=== PATIENT | female | born 1940 | race Caucasian/White ===

== ENCOUNTER 2017-11-22 12:03 | Inpatient (IN) | payer MEDICARE, MEDICAID ==
[~2017-11-22] VITALS: Ht 160 cm; Wt 65.0 kg
[~2017-11-22 12:03] MED LIST: CALC-964 PO; CHOL500019 PO; CIP500T PO; CLON-528 PO; DIPH-423 PO; DOCU250C30 PO; FAMO-1 PO; FERR325T28 PO; FURO40TA4 PO; ILOP6TAB2 PO; LAMO100T2 PO; LISI-600 PO; METH5TAB PO; MULT-1085 PO; NOR5T PO; POLY17PO10 PO; POTA20TA19 PO; PROP10TA10 PO; SENN17.26 PO; SERT25TA PO; SIMV10TA2 PO; SODI4VIA NS; STE5T PO; SYN0.1T PO; TRIH2TAB3 PO; VITC500T PO; ZOLP5TAB8 PO; [UNRECOGNIZED DRUG - CODE] PO
[2017-11-22] MEDS ORDERED: normal saline 1000ML IV soln IVB ONE ×2 (12:30→16:25)
[2017-11-22 12:55] LABS: CLARITY,URINE CLOUDY (Clear); COLOR,URINE YELLOW (Yellow); GLUCOSE, URINE NEGATIVE (Neg); KETONES,URINE NEGATIVE (Neg); LEUKOCYTE ESTERASE ,URINE LARGE (Neg); NITRITES, URINE POSITIVE (Neg); OCCULT BLOOD,URINE NEGATIVE (Neg); PROTEIN,URINE NEGATIVE (Neg); UA COLLECTION TYPE STRAIGHT CATH; UROBILINOGEN,URINE 0.2 E.U/dL (0.2-1.0)
[2017-11-22 13:03] LABS: HYALINE CASTS 0-3 /LPF (NEGATIVE); SQUAMOUS EPITHELIAL CELL,UR MODERATE /LPF (FEW); WBC CLUMPS,URINE MANY /HPF (NEGATIVE)
[2017-11-22 13:04] LABS: BACTERIA,URINE 2+ /HPF (Neg); RBC,URINE 0-2 /HPF (0-2); WBC,URINE 30-50 /HPF (0-4)
[2017-11-22 13:09] LABS: BASOPHILS % (AUTO) 0 % (0-1); EOSINOPHILS % (AUTO) 0 % (0-6); HEMOGLOBIN 12.9 g/dl (12.0-16.0); LYMPHOCYTES # (AUTO) 0.2 X10'3 (1.1-4.8); LYMPHOCYTES % (AUTO) 1.1 % (21-51); MEAN CORPUSCULAR HGB CONC 34.8 % (33.0-36.5); MEAN CORPUSCULAR VOLUME 91.8 FL (78-98); MONOCYTES # (AUTO) 0.7 X10'3 (0-0.9); MONOCYTES % (AUTO) 4.3 % (2-12); NEUTROPHILS % (AUTO) 94.6 % (42-75); PLATELET COUNT 256 X10'3 (140-440); RED BLOOD COUNT 4.03 X10'6 (4.20-5.60); RED CELL DISTRIBUTION WIDTH 13.5 % (11.5-14.5); WHITE BLOOD COUNT 15.8 X10'3 (4.5-11.0)
[2017-11-22 13:20] LABS: PARTIAL THROMBOPLASTIN TIME 26 SECONDS (22-32); PROTHROMBIN TIME 10.3 SECONDS (9.0-12.0)
[2017-11-22 13:33] LABS: ALANINE AMINOTRANSFERASE 53 U/L (12-78); ALBUMIN 4.2 G/DL (3.4-5.0); ALBUMIN/GLOBULIN RATIO 1.4 (1.1-1.5); ALKALINE PHOSPHATASE 81 IU/L (46-116); ANION GAP 11 (8-16); ASPARTATE AMINO TRANSFERASE 53 U/L (10-37); BILIRUBIN,TOTAL 0.9 MG/DL (0.1-1.0); BLOOD UREA NITROGEN 24 MG/DL (7-18); BUN/CREATININE RATIO 17.3 (6.6-38.0); CALCIUM 10.3 MG/DL (8.5-10.1); CHLORIDE 106 MMOL/L (99-107); CREATININE 1.39 MG/DL (0.40-0.90); GLUCOSE 174 MG/DL (70-104); POTASSIUM 3.9 MMOL/L (3.5-5.1); SODIUM 146 MMOL/L (135-145); TOTAL CARBON DIOXIDE 28.9 MMOL/L (24-32); TOTAL PROTEIN 7.3 G/DL (6.4-8.2); TROPONIN I < 0.04 NG/ML (0.0-0.05); eGFR 37 ML/MIN
[2017-11-22 13:51] LABS: ETHANOL < 0.010 GM/DL (0.0-0.010)
[2017-11-22 13:58] LABS: URINE AMPHETAMINE SCREEN NEGATIVE (Neg); URINE BARBITUATE SCREEN NEGATIVE (Neg); URINE BENZODIAZEPINES SCREEN NEGATIVE (Neg); URINE CANNABINOID SCREEN NEGATIVE (Neg); URINE COCAINE SCREEN NEGATIVE (Neg); URINE METHADONE SCREEN POSITIVE (Neg); URINE OPIATE SCREEN NEGATIVE (Neg); URINE PHENCYCLIDINE SCREEN NEGATIVE (Neg)
[2017-11-22] MEDS ORDERED: magnesium 2GM in 50ml NS 50 ML IV PRN (16:25)
[2017-11-22] MEDS ORDERED: potassium Cl 40MEQ/NS 500ml 500 ML IV PRN (16:25)
[2017-11-22] MEDS ORDERED: potassium Cl 20 mEq SR tablet PO PRN ×2 (16:25)
[2017-11-22] MEDS ORDERED: magnesium hydroxide 30ml (MOM) UD suspension PO PRN (16:25)
[2017-11-22] MEDS ORDERED: albuterol 2.5 MG/3 ML nebule NEB PRN (16:25)
[2017-11-22] MEDS ORDERED: magnesium Cl slow-release 64mg tablet PO PRN (16:25)
[2017-11-22] MEDS ORDERED: ipratropium/albuterol 3ml nebule NEB PRN (16:25)
[2017-11-22] MEDS ORDERED: magnesium 4gm in 100ml NS 100 ML IV PRN (16:25)
[2017-11-22] MEDS: normal saline 1000ml 1,000 ML IV SCH ×2 (17:17→19:38)
[2017-11-22 17:23] LABS: HEMOGLOBIN A1C 5.2 % (4.5-6.2)
[2017-11-22] MEDS: CefTRIAXone 2gm/NS 100ml IVPB 100 ML IV SCH (17:54)
[2017-11-22 19:00] VITALS: BP 171/69
[2017-11-22 20:00] VITALS: BP 150/73
[2017-11-22] MEDS: clonazePAM 0.5mg tablet PO SCH (20:00)
[2017-11-22] MEDS ORDERED: trihexyphenidyl 2mg tablet PO SCH (20:00)
[2017-11-22] MEDS: propranolol 10mg tablet PO SCH (20:00)
[2017-11-22] MEDS: potassium Cl 20 mEq SR tablet PO SCH (20:32)
[2017-11-22] MEDS: amLODIPine 5mg tablet PO SCH (20:33)
[2017-11-22] MEDS: atorvastatin 10mg tablet PO SCH (20:33)
[2017-11-22] MEDS: heparin, porcine 5000 units/ml vial SQ SCH (21:17)
[2017-11-22] MEDS: acetaminophen 650mg rectal suppository RC PRN ×2 (21:24→23:45)
[2017-11-23] VITALS (17 sets, daily range): BP systolic 144–182; BP diastolic 56–78
[2017-11-23] MEDS: normal saline 1000ml 1,000 ML IV SCH (04:36)
[2017-11-23 05:41] LABS: BASOPHILS % (AUTO) 0 % (0-1); EOSINOPHILS % (AUTO) 0.1 % (0-6); HEMATOCRIT 31.9 % (35.0-45.0); LYMPHOCYTES # (AUTO) 0.7 X10'3 (1.1-4.8); LYMPHOCYTES % (AUTO) 5.6 % (21-51); MEAN CORPUSCULAR HEMOGLOBIN 31.7 PG (27.0-31.0); MEAN CORPUSCULAR HGB CONC 34.4 % (33.0-36.5); MEAN CORPUSCULAR VOLUME 92.2 FL (78-98); MEAN PLATELET VOLUME 7.9 FL (7.4-10.4); MONOCYTES # (AUTO) 0.8 X10'3 (0-0.9); MONOCYTES % (AUTO) 6.7 % (2-12); NEUTROPHILS # (AUTO) 10.5 X10'3 (1.8-7.7); NEUTROPHILS % (AUTO) 87.6 % (42-75); PLATELET COUNT 217 X10'3 (140-440); RED BLOOD COUNT 3.47 X10'6 (4.20-5.60); RED CELL DISTRIBUTION WIDTH 13.8 % (11.5-14.5)
[2017-11-23 06:15] LABS: ALANINE AMINOTRANSFERASE 53 U/L (12-78); ALBUMIN/GLOBULIN RATIO 1.1 (1.1-1.5); ALKALINE PHOSPHATASE 64 IU/L (46-116); ANION GAP 9 (8-16); ASPARTATE AMINO TRANSFERASE 63 U/L (10-37); BILIRUBIN,TOTAL 0.5 MG/DL (0.1-1.0); BLOOD UREA NITROGEN 20 MG/DL (7-18); BUN/CREATININE RATIO 19.8 (6.6-38.0); CALCIUM 8.6 MG/DL (8.5-10.1); CHLORIDE 113 MMOL/L (99-107); CHOL/HDL RATIO 1.7 (0.00-4.99); CHOLESTEROL 100 MG/DL (0-200); CREATININE 1.01 MG/DL (0.40-0.90); GLUCOSE 93 MG/DL (70-104); HDL CHOLESTEROL 58 MG/DL (35-60); LDL CHOLESTEROL 45 MG/DL (50-100); MAGNESIUM 2.1 MG/DL (1.5-2.4); POTASSIUM 3.2 MMOL/L (3.5-5.1); SODIUM 149 MMOL/L (135-145); TOTAL CARBON DIOXIDE 27.1 MMOL/L (24-32); TOTAL PROTEIN 5.7 G/DL (6.4-8.2); TRIGLYCERIDES 45 MG/DL (20-135); eGFR 53 ML/MIN
[2017-11-23] MEDS: sertraline 25mg tablet PO SCH (07:12)
[2017-11-23] MEDS: furosemide 40mg tablet PO SCH (07:13)
[2017-11-23] MEDS: lisinopril 20mg tablet PO SCH (07:13)
[2017-11-23] MEDS: polyethylene glycol 3350 17gm powd pack PO SCH (07:13)
[2017-11-23] MEDS: lamoTRIgine 100mg tablet PO SCH (07:14)
[2017-11-23] MEDS: ferrous sulfate 325mg tablet PO SCH (07:14)
[2017-11-23] MEDS: clonazePAM 0.5mg tablet PO SCH ×2 (07:14→20:00)
[2017-11-23] MEDS: potassium Cl 20 mEq SR tablet PO SCH ×3 (07:14→21:00)
[2017-11-23] MEDS: propranolol 10mg tablet PO SCH ×2 (07:14→20:00)
[2017-11-23] MEDS ORDERED: famotidine 20mg tablet PO SCH (08:00)
[2017-11-23] MEDS ORDERED: levoTHYROXINE 100mcg tablet PO SCH (08:00)
[2017-11-23] MEDS: K and/or MAG REPLACEMENT MC SCH (08:00)
[2017-11-23] MEDS: CefTRIAXone 2gm/NS 100ml IVPB 100 ML IV SCH (08:26)
[2017-11-23] MEDS: heparin, porcine 5000 units/ml vial SQ SCH ×2 (08:28→20:55)
[2017-11-23] MEDS ORDERED: ASPI-1265 PO (10:04)
[2017-11-23] MEDS ORDERED: DEXT15DR7 EACHEYE (10:05)
[2017-11-23] MEDS ORDERED: LORA1TAB PO (10:06)
[2017-11-23] MEDS ORDERED: PYRI200T9 PO (10:08)
[2017-11-23] MEDS ORDERED: BENZ2TAB7 PO (10:09)
[2017-11-23] MEDS ORDERED: DULR RC (10:10)
[2017-11-23] MEDS ORDERED: LURA60TA2 PO (10:13)
[2017-11-23] MEDS ORDERED: MAGN296S50 PO (10:19)
[2017-11-23] MEDS ORDERED: METH5TAB PO (10:20)
[2017-11-23] MEDS ORDERED: MAGN400O6 PO (10:21)
[2017-11-23] MEDS ORDERED: POLY119P2 (10:22)
[2017-11-23] MEDS ORDERED: CARB-87 PO ×3 (10:31→10:35)
[2017-11-23] MEDS ORDERED: CHOL10002 PO (10:35)
[2017-11-23] MEDS ORDERED: ACET-2119 PO (10:37)
[2017-11-23] MEDS: potassium CL 20mEq in D5-1/2NS 1,000 ML IV SCH (11:09)
[2017-11-23] MEDS ORDERED: dexamethasone sod phosphate 10mg/ml inj IV STA (11:11)
[2017-11-23] MEDS: ampicillin/sulbac 3gm/NS 100ml 100 ML IV SCH ×2 (16:01→20:55)
[2017-11-23] MEDS: nystatin 15 GM powder TP SCH (20:55)
[2017-11-23] MEDS: amLODIPine 5mg tablet PO SCH (21:00)
[2017-11-23] MEDS: atorvastatin 10mg tablet PO SCH (21:00)
[2017-11-23] MEDS ORDERED: ziprasidone IM 20mg inj **IM only IM ONE (22:35)
[2017-11-23] MEDS ORDERED: ziprasidone IM 20mg inj **IM only ONE (22:38)
[2017-11-23] MEDS ORDERED: diphenhydrAMINE 50 mg/ml inj ONE (22:40)
[2017-11-23] MEDS ORDERED: diphenhydrAMINE 50 mg/ml inj IV ONE (22:55)
[2017-11-23] MEDS: hydrALAZINE 20mg/ml inj. IV PRN (23:25)
[2017-11-24] VITALS (24 sets, daily range): BP systolic 143–179; BP diastolic 54–83
[2017-11-24] MEDS ORDERED: ziprasidone IM 20mg inj **IM only IM ONE (00:25)
[2017-11-24] MEDS ORDERED: ziprasidone IM 20mg inj **IM only ONE (00:26)
[2017-11-24] MEDS ORDERED: HYDROmorphone inj. 0.5 MG/0.5 ML DISP.SYRIN IM ONE (00:50)
[2017-11-24] MEDS: ampicillin/sulbac 3gm/NS 100ml 100 ML IV SCH ×4 (02:45→20:22)
[2017-11-24] MEDS ORDERED: HYDROmorphone inj. 0.5 MG/0.5 ML DISP.SYRIN IV ONE (03:15)
[2017-11-24] MEDS: potassium CL 20mEq in D5-1/2NS 1,000 ML IV SCH (03:23)
[2017-11-24 05:28] LABS: BASOPHILS % (AUTO) 0.2 % (0-1); EOSINOPHILS # (AUTO) 0.1 X10'3 (0-0.9); EOSINOPHILS % (AUTO) 1.5 % (0-6); HEMATOCRIT 30.3 % (35.0-45.0); HEMOGLOBIN 10.5 g/dl (12.0-16.0); LYMPHOCYTES # (AUTO) 0.7 X10'3 (1.1-4.8); LYMPHOCYTES % (AUTO) 6.9 % (21-51); MEAN CORPUSCULAR HEMOGLOBIN 31.9 PG (27.0-31.0); MEAN CORPUSCULAR HGB CONC 34.7 % (33.0-36.5); MEAN CORPUSCULAR VOLUME 91.9 FL (78-98); MEAN PLATELET VOLUME 8.2 FL (7.4-10.4); MONOCYTES # (AUTO) 0.9 X10'3 (0-0.9); MONOCYTES % (AUTO) 9.6 % (2-12); NEUTROPHILS # (AUTO) 7.7 X10'3 (1.8-7.7); NEUTROPHILS % (AUTO) 81.8 % (42-75); PLATELET COUNT 220 X10'3 (140-440); RED CELL DISTRIBUTION WIDTH 13.3 % (11.5-14.5); WHITE BLOOD COUNT 9.4 X10'3 (4.5-11.0)
[2017-11-24 05:51] LABS: ALANINE AMINOTRANSFERASE 56 U/L (12-78); ALBUMIN 2.8 G/DL (3.4-5.0); ALBUMIN/GLOBULIN RATIO 1.1 (1.1-1.5); ALKALINE PHOSPHATASE 63 IU/L (46-116); ANION GAP 9 (8-16); ASPARTATE AMINO TRANSFERASE 45 U/L (10-37); BILIRUBIN,TOTAL 0.5 MG/DL (0.1-1.0); BLOOD UREA NITROGEN 20 MG/DL (7-18); BUN/CREATININE RATIO 23.3 (6.6-38.0); CHLORIDE 114 MMOL/L (99-107); CREATININE 0.86 MG/DL (0.40-0.90); GLUCOSE 98 MG/DL (70-104); MAGNESIUM 1.9 MG/DL (1.5-2.4); SODIUM 151 MMOL/L (135-145); TOTAL CARBON DIOXIDE 27.8 MMOL/L (24-32); TOTAL PROTEIN 5.4 G/DL (6.4-8.2); eGFR 64 ML/MIN
[2017-11-24 06:12] LABS: POTASSIUM 2.8 MMOL/L (3.5-5.1)
[2017-11-24] MEDS: K and/or MAG REPLACEMENT MC SCH (07:39)
[2017-11-24] MEDS: CefTRIAXone 2gm/NS 100ml IVPB 100 ML IV SCH (07:46)
[2017-11-24] MEDS: potassium Cl 40MEQ/NS 500ml 500 ML IV PRN ×2 (07:46→13:40)
[2017-11-24] MEDS: famotidine/PF 10 mg/ml inj IV SCH (07:47)
[2017-11-24] MEDS: heparin, porcine 5000 units/ml vial SQ SCH ×2 (07:47→20:20)
[2017-11-24] MEDS: nystatin 15 GM powder TP SCH ×3 (07:48→20:21)
[2017-11-24] MEDS: clonazePAM 0.5mg tablet PO SCH ×2 (08:00→20:21)
[2017-11-24] MEDS: polyethylene glycol 3350 17gm powd pack PO SCH (08:00)
[2017-11-24] MEDS: potassium Cl 20 mEq SR tablet PO SCH ×3 (08:00→21:00)
[2017-11-24] MEDS: lisinopril 20mg tablet PO SCH (08:00)
[2017-11-24] MEDS: sertraline 25mg tablet PO SCH (08:00)
[2017-11-24] MEDS: lamoTRIgine 100mg tablet PO SCH (08:00)
[2017-11-24] MEDS: furosemide 40mg tablet PO SCH (08:00)
[2017-11-24] MEDS: ferrous sulfate 325mg tablet PO SCH (08:00)
[2017-11-24] MEDS: propranolol 10mg tablet PO SCH ×2 (08:00→20:00)
[2017-11-24] MEDS ORDERED: levoTHYROXINE sod inj. 100mcg/5 ml vial IV SCH (08:00)
[2017-11-24 08:30] LABS: PHOSPHORUS 2.1 MG/DL (2.3-4.5)
[2017-11-24] MEDS ORDERED: sodium phosphate inj. 30 MMOL in dextrose 5%-water 250 ML IV PRN (08:40)
[2017-11-24] MEDS: sodium phosphate inj. 15 MMOL in dextrose 5%-water 150 ML IV PRN (10:08)
[2017-11-24] MEDS: dextrose 5%-water 1,000 ML IV SCH ×3 (11:00→23:55)
[2017-11-24] MEDS: lactobacillus rhamnosus 10,000 MMU CELLS/CAPSULE PO SCH (17:27)
[2017-11-24] MEDS: atorvastatin 10mg tablet PO SCH (20:20)
[2017-11-24] MEDS: amLODIPine 5mg tablet PO SCH (20:21)
[2017-11-24] MEDS: mag hydrox/Alum hydrox/simeth 30ml oral suspension PO PRN (21:45)
[2017-11-24] MEDS: hydrALAZINE 20mg/ml inj. IV PRN (21:45)
[2017-11-24] MEDS: ondansetron/PF 4mg/2ml inj IV PRN (23:33)
[2017-11-25] VITALS (21 sets, daily range): BP systolic 118–180; BP diastolic 54–99
[2017-11-25 01:41] LABS: ALANINE AMINOTRANSFERASE 51 U/L (12-78); ALBUMIN 2.8 G/DL (3.4-5.0); ALKALINE PHOSPHATASE 63 IU/L (46-116); ANION GAP 8 (8-16); ASPARTATE AMINO TRANSFERASE 37 U/L (10-37); BILIRUBIN,TOTAL 0.4 MG/DL (0.1-1.0); BLOOD UREA NITROGEN 13 MG/DL (7-18); BUN/CREATININE RATIO 15.1 (6.6-38.0); CALCIUM 7.7 MG/DL (8.5-10.1); CHLORIDE 109 MMOL/L (99-107); CREATININE 0.86 MG/DL (0.40-0.90); GLUCOSE 151 MG/DL (70-104); MAGNESIUM 1.9 MG/DL (1.5-2.4); PHOSPHORUS 1.5 MG/DL (2.3-4.5); POTASSIUM 3.2 MMOL/L (3.5-5.1); SODIUM 141 MMOL/L (135-145); TOTAL CARBON DIOXIDE 24.4 MMOL/L (24-32); TOTAL PROTEIN 5.5 G/DL (6.4-8.2); eGFR 64 ML/MIN
[2017-11-25 02:16] LABS: BASOPHILS % (AUTO) 0.4 % (0-1); EOSINOPHILS # (AUTO) 0.1 X10'3 (0-0.9); EOSINOPHILS % (AUTO) 1.2 % (0-6); HEMATOCRIT 31.7 % (35.0-45.0); LYMPHOCYTES # (AUTO) 0.7 X10'3 (1.1-4.8); LYMPHOCYTES % (AUTO) 6.5 % (21-51); MEAN CORPUSCULAR HEMOGLOBIN 31.9 PG (27.0-31.0); MEAN CORPUSCULAR HGB CONC 34.6 % (33.0-36.5); MEAN CORPUSCULAR VOLUME 92.3 FL (78-98); MEAN PLATELET VOLUME 8.5 FL (7.4-10.4); MONOCYTES # (AUTO) 0.9 X10'3 (0-0.9); MONOCYTES % (AUTO) 8.3 % (2-12); NEUTROPHILS # (AUTO) 8.6 X10'3 (1.8-7.7); NEUTROPHILS % (AUTO) 83.6 % (42-75); PLATELET COUNT 226 X10'3 (140-440); RED BLOOD COUNT 3.44 X10'6 (4.20-5.60); RED CELL DISTRIBUTION WIDTH 13.4 % (11.5-14.5); WHITE BLOOD COUNT 10.3 X10'3 (4.5-11.0)
[2017-11-25] MEDS: ampicillin/sulbac 3gm/NS 100ml 100 ML IV SCH ×4 (03:12→22:38)
[2017-11-25] MEDS: dextrose 5%-water 1,000 ML IV SCH ×3 (06:35→17:22)
[2017-11-25] MEDS: levoTHYROXINE 100mcg tablet PO SCH ×2 (07:00→09:29)
[2017-11-25] MEDS: lactobacillus rhamnosus 10,000 MMU CELLS/CAPSULE PO SCH ×3 (07:30→15:39)
[2017-11-25] MEDS: furosemide 40mg tablet PO SCH ×2 (08:00→09:29)
[2017-11-25] MEDS: lisinopril 20mg tablet PO SCH ×2 (08:00→09:28)
[2017-11-25] MEDS: potassium Cl 20 mEq SR tablet PO SCH ×4 (08:00→21:38)
[2017-11-25] MEDS: K and/or MAG REPLACEMENT MC SCH (08:00)
[2017-11-25] MEDS: lamoTRIgine 100mg tablet PO SCH ×2 (08:00→09:29)
[2017-11-25] MEDS: polyethylene glycol 3350 17gm powd pack PO SCH ×2 (08:00→21:00)
[2017-11-25] MEDS: clonazePAM 0.5mg tablet PO SCH ×3 (08:00→21:36)
[2017-11-25] MEDS: propranolol 10mg tablet PO SCH ×4 (08:00→21:38)
[2017-11-25] MEDS: ferrous sulfate 325mg tablet PO SCH ×2 (08:00→09:28)
[2017-11-25] MEDS: sertraline 25mg tablet PO SCH ×2 (08:00→09:29)
[2017-11-25] MEDS: CefTRIAXone 2gm/NS 100ml IVPB 100 ML IV SCH (09:25)
[2017-11-25] MEDS: famotidine/PF 10 mg/ml inj IV SCH (09:30)
[2017-11-25] MEDS: nystatin 15 GM powder TP SCH ×4 (09:31→21:38)
[2017-11-25] MEDS: heparin, porcine 5000 units/ml vial SQ SCH ×3 (09:31→21:38)
[2017-11-25] MEDS: acetaminophen 325mg tablet PO PRN (14:36)
[2017-11-25] MEDS: sodium phosphate inj. 15 MMOL in dextrose 5%-water 150 ML IV PRN (17:10)
[2017-11-25] MEDS: hydrALAZINE 20mg/ml inj. IV PRN ×2 (17:19→23:33)
[2017-11-25] MEDS ORDERED: potassium Cl 40MEQ/NS 500ml 500 ML IV PRN (20:10)
[2017-11-25] MEDS ORDERED: potassium Cl 20 mEq SR tablet PO PRN ×2 (20:10)
[2017-11-25] MEDS: amLODIPine 5mg tablet PO SCH ×2 (21:00→21:37)
[2017-11-25] MEDS: atorvastatin 10mg tablet PO SCH ×2 (21:00→21:38)
[2017-11-26] MEDS: dextrose 5%-water 1,000 ML IV SCH ×3 (00:05→17:03)
[2017-11-26 02:00] VITALS: BP 175/76
[2017-11-26] MEDS: ampicillin/sulbac 3gm/NS 100ml 100 ML IV SCH ×4 (02:59→20:25)
[2017-11-26 05:22] LABS: BASOPHILS % (AUTO) 0.4 % (0-1); EOSINOPHILS # (AUTO) 0.3 X10'3 (0-0.9); HEMATOCRIT 37.7 % (35.0-45.0); LYMPHOCYTES # (AUTO) 0.7 X10'3 (1.1-4.8); LYMPHOCYTES % (AUTO) 7.7 % (21-51); MEAN CORPUSCULAR HEMOGLOBIN 31.8 PG (27.0-31.0); MEAN CORPUSCULAR HGB CONC 34.5 % (33.0-36.5); MEAN CORPUSCULAR VOLUME 92.1 FL (78-98); MEAN PLATELET VOLUME 8.5 FL (7.4-10.4); MONOCYTES # (AUTO) 0.9 X10'3 (0-0.9); MONOCYTES % (AUTO) 9.1 % (2-12); NEUTROPHILS # (AUTO) 7.7 X10'3 (1.8-7.7); NEUTROPHILS % (AUTO) 79.8 % (42-75); PLATELET COUNT 280 X10'3 (140-440); RED BLOOD COUNT 4.09 X10'6 (4.20-5.60); RED CELL DISTRIBUTION WIDTH 13.5 % (11.5-14.5); WHITE BLOOD COUNT 9.6 X10'3 (4.5-11.0)
[2017-11-26] MEDS: hydrALAZINE 20mg/ml inj. IV PRN ×2 (05:42→18:51)
[2017-11-26 05:59] LABS: ANION GAP 8 (8-16); BLOOD UREA NITROGEN 7 MG/DL (7-18); BUN/CREATININE RATIO 9.3 (6.6-38.0); CHLORIDE 102 MMOL/L (99-107); CREATININE 0.75 MG/DL (0.40-0.90); GLUCOSE 133 MG/DL (70-104); SODIUM 137 MMOL/L (135-145)
[2017-11-26 06:00] VITALS: BP 148/50
[2017-11-26 06:00] LABS: ALANINE AMINOTRANSFERASE 63 U/L (12-78); ALKALINE PHOSPHATASE 72 IU/L (46-116); ASPARTATE AMINO TRANSFERASE 35 U/L (10-37); BILIRUBIN,TOTAL 0.6 MG/DL (0.1-1.0); CALCIUM 7.9 MG/DL (8.5-10.1); PHOSPHORUS 1.7 MG/DL (2.3-4.5); TOTAL PROTEIN 5.9 G/DL (6.4-8.2); eGFR 75 ML/MIN
[2017-11-26] MEDS ORDERED: LIDOcaine 1% 30ml vial 5 ML in potassium Cl 40MEQ/NS 500ml 500 ML IV PRN (06:30)
[2017-11-26 06:53] LABS: POTASSIUM 2.8 MMOL/L (3.5-5.1)
[2017-11-26] MEDS: levoTHYROXINE 100mcg tablet PO SCH (07:00)
[2017-11-26] MEDS: lactobacillus rhamnosus 10,000 MMU CELLS/CAPSULE PO SCH ×2 (07:30→17:05)
[2017-11-26] MEDS: K and/or MAG REPLACEMENT MC SCH (08:00)
[2017-11-26] MEDS: propranolol 10mg tablet PO SCH ×2 (08:00→20:00)
[2017-11-26] MEDS: clonazePAM 0.5mg tablet PO SCH ×2 (08:00→20:00)
[2017-11-26] MEDS: sertraline 25mg tablet PO SCH (08:00)
[2017-11-26] MEDS: furosemide 40mg tablet PO SCH (08:00)
[2017-11-26] MEDS: potassium Cl 20 mEq SR tablet PO SCH ×3 (08:00→21:00)
[2017-11-26] MEDS: docusate sod 100mg capsule PO SCH ×2 (08:00→20:00)
[2017-11-26] MEDS: polyethylene glycol 3350 17gm powd pack PO SCH ×2 (08:00→20:21)
[2017-11-26] MEDS: heparin, porcine 5000 units/ml vial SQ SCH ×2 (08:00→20:00)
[2017-11-26] MEDS: lisinopril 20mg tablet PO SCH (08:00)
[2017-11-26] MEDS: nystatin 15 GM powder TP SCH ×3 (08:00→21:00)
[2017-11-26] MEDS: ferrous sulfate 325mg tablet PO SCH (08:00)
[2017-11-26] MEDS: lamoTRIgine 100mg tablet PO SCH (08:00)
[2017-11-26] MEDS: ondansetron/PF 4mg/2ml inj IV PRN ×2 (08:10→20:26)
[2017-11-26] MEDS: CefTRIAXone 2gm/NS 100ml IVPB 100 ML IV SCH (09:22)
[2017-11-26] MEDS: sodium phosphate inj. 15 MMOL in dextrose 5%-water 150 ML IV PRN (09:22)
[2017-11-26] MEDS: famotidine/PF 10 mg/ml inj IV SCH (09:23)
[2017-11-26 11:00] VITALS: BP 133/64
[2017-11-26 15:00] VITALS: BP 140/74
[2017-11-26] MEDS: potassium Cl 40MEQ/NS 500ml 500 ML IV PRN ×2 (15:37→17:02)
[2017-11-26] MEDS ORDERED: LIDOcaine 1% 30ml vial 5 ML in potassium Cl 40MEQ/NS 500ml 500 ML IV ONE (15:45)
[2017-11-26 18:00] VITALS: BP 176/75
[2017-11-26] MEDS: LACTOSE-FREE FOOD 237ML (BOOST) PO SCH (18:00)
[2017-11-26] MEDS: amLODIPine 5mg tablet PO SCH (21:00)
[2017-11-26] MEDS: atorvastatin 10mg tablet PO SCH (21:00)
[2017-11-26 22:00] VITALS: BP 147/54
[2017-11-26] MEDS: LORazepam 2 mg/ml vial IV PRN (22:10)
[2017-11-27] MEDS: dextrose 5%-water 1,000 ML IV SCH ×4 (01:05→18:35)
[2017-11-27 02:00] VITALS: BP 165/64
[2017-11-27] MEDS: ampicillin/sulbac 3gm/NS 100ml 100 ML IV SCH ×4 (02:31→20:29)
[2017-11-27] MEDS: hydrALAZINE 20mg/ml inj. IV PRN ×2 (03:07→09:56)
[2017-11-27 05:47] LABS: BASOPHILS % (AUTO) 0.1 % (0-1); EOSINOPHILS # (AUTO) 0.1 X10'3 (0-0.9); EOSINOPHILS % (AUTO) 1.5 % (0-6); HEMATOCRIT 34.4 % (35.0-45.0); HEMOGLOBIN 12.1 g/dl (12.0-16.0); LYMPHOCYTES # (AUTO) 0.7 X10'3 (1.1-4.8); LYMPHOCYTES % (AUTO) 7.7 % (21-51); MEAN CORPUSCULAR HGB CONC 35.1 % (33.0-36.5); MEAN CORPUSCULAR VOLUME 91.3 FL (78-98); MEAN PLATELET VOLUME 8.1 FL (7.4-10.4); MONOCYTES % (AUTO) 10.1 % (2-12); NEUTROPHILS # (AUTO) 7.7 X10'3 (1.8-7.7); NEUTROPHILS % (AUTO) 80.6 % (42-75); PLATELET COUNT 282 X10'3 (140-440); RED BLOOD COUNT 3.77 X10'6 (4.20-5.60); RED CELL DISTRIBUTION WIDTH 13.4 % (11.5-14.5); WHITE BLOOD COUNT 9.6 X10'3 (4.5-11.0)
[2017-11-27 06:00] VITALS: BP 177/65
[2017-11-27 06:37] LABS: CHLORIDE 103 MMOL/L (99-107); GLUCOSE 143 MG/DL (70-104); SODIUM 140 MMOL/L (135-145); TOTAL CARBON DIOXIDE 27.9 MMOL/L (24-32)
[2017-11-27 06:38] LABS: ALANINE AMINOTRANSFERASE 97 U/L (12-78); ALBUMIN 2.7 G/DL (3.4-5.0); ALKALINE PHOSPHATASE 70 IU/L (46-116); ANION GAP 9 (8-16); ASPARTATE AMINO TRANSFERASE 75 U/L (10-37); BILIRUBIN,TOTAL 0.4 MG/DL (0.1-1.0); BLOOD UREA NITROGEN 7 MG/DL (7-18); BUN/CREATININE RATIO 9.3 (6.6-38.0); CALCIUM 7.5 MG/DL (8.5-10.1); CREATININE 0.75 MG/DL (0.40-0.90); MAGNESIUM 1.9 MG/DL (1.5-2.4); PHOSPHORUS 1.8 MG/DL (2.3-4.5); TOTAL PROTEIN 5.3 G/DL (6.4-8.2); eGFR 75 ML/MIN
[2017-11-27 06:55] LABS: POTASSIUM 2.8 MMOL/L (3.5-5.1)
[2017-11-27] MEDS: levoTHYROXINE 100mcg tablet PO SCH (07:00)
[2017-11-27] MEDS: lactobacillus rhamnosus 10,000 MMU CELLS/CAPSULE PO SCH ×2 (07:30→17:30)
[2017-11-27] MEDS: lisinopril 20mg tablet PO SCH (08:00)
[2017-11-27] MEDS: lamoTRIgine 100mg tablet PO SCH (08:00)
[2017-11-27] MEDS: ferrous sulfate 325mg tablet PO SCH (08:00)
[2017-11-27] MEDS: propranolol 10mg tablet PO SCH ×2 (08:00→20:00)
[2017-11-27] MEDS: sertraline 25mg tablet PO SCH (08:00)
[2017-11-27] MEDS: polyethylene glycol 3350 17gm powd pack PO SCH ×2 (08:00→20:38)
[2017-11-27] MEDS: docusate sod 100mg capsule PO SCH ×2 (08:00→20:00)
[2017-11-27] MEDS: furosemide 40mg tablet PO SCH (08:00)
[2017-11-27] MEDS: potassium Cl 20 mEq SR tablet PO SCH ×3 (08:00→20:37)
[2017-11-27] MEDS: K and/or MAG REPLACEMENT MC SCH (08:00)
[2017-11-27] MEDS: famotidine 20mg tablet PO SCH (08:00)
[2017-11-27] MEDS: clonazePAM 0.5mg tablet PO SCH ×2 (08:00→20:00)
[2017-11-27] MEDS: LIDOcaine 1% 30ml vial 5 ML in potassium Cl 40MEQ/NS 500ml 500 ML IV PRN ×2 (09:19→14:16)
[2017-11-27] MEDS: nystatin 15 GM powder TP SCH ×3 (09:29→20:30)
[2017-11-27] MEDS: LACTOSE-FREE FOOD 237ML (BOOST) PO SCH ×3 (09:29→18:48)
[2017-11-27] MEDS: heparin, porcine 5000 units/ml vial SQ SCH ×2 (09:29→20:35)
[2017-11-27] MEDS: ondansetron/PF 4mg/2ml inj IV PRN ×2 (09:56→16:18)
[2017-11-27 11:00] VITALS: BP 162/62
[2017-11-27 15:00] VITALS: BP 162/62
[2017-11-27 18:00] VITALS: BP 155/68
[2017-11-27] MEDS: atorvastatin 10mg tablet PO SCH (20:37)
[2017-11-27] MEDS: amLODIPine 5mg tablet PO SCH (20:38)
[2017-11-27 22:00] VITALS: BP 188/76
[2017-11-27 22:36] LABS: BASOPHILS % (AUTO) 0 % (0-1); EOSINOPHILS # (AUTO) 0.2 X10'3 (0-0.9); EOSINOPHILS % (AUTO) 1.8 % (0-6); HEMATOCRIT 34.4 % (35.0-45.0); LYMPHOCYTES # (AUTO) 0.6 X10'3 (1.1-4.8); MEAN CORPUSCULAR HEMOGLOBIN 31.6 PG (27.0-31.0); MEAN CORPUSCULAR HGB CONC 34.9 % (33.0-36.5); MEAN CORPUSCULAR VOLUME 90.4 FL (78-98); MEAN PLATELET VOLUME 7.8 FL (7.4-10.4); MONOCYTES # (AUTO) 1.1 X10'3 (0-0.9); MONOCYTES % (AUTO) 9.5 % (2-12); NEUTROPHILS # (AUTO) 9.9 X10'3 (1.8-7.7); NEUTROPHILS % (AUTO) 83.7 % (42-75); PLATELET COUNT 290 X10'3 (140-440); RED CELL DISTRIBUTION WIDTH 13.4 % (11.5-14.5); WHITE BLOOD COUNT 11.8 X10'3 (4.5-11.0)
[2017-11-27 22:54] LABS: ALANINE AMINOTRANSFERASE 119 U/L (12-78); ALBUMIN 2.7 G/DL (3.4-5.0); ALBUMIN/GLOBULIN RATIO 1.1 (1.1-1.5); ALKALINE PHOSPHATASE 73 IU/L (46-116); ANION GAP 7 (8-16); ASPARTATE AMINO TRANSFERASE 66 U/L (10-37); BILIRUBIN,TOTAL 0.6 MG/DL (0.1-1.0); BLOOD UREA NITROGEN 7 MG/DL (7-18); BUN/CREATININE RATIO 10.6 (6.6-38.0); CALCIUM 7.6 MG/DL (8.5-10.1); CHLORIDE 103 MMOL/L (99-107); CREATININE 0.66 MG/DL (0.40-0.90); GLUCOSE 140 MG/DL (70-104); SODIUM 137 MMOL/L (135-145); TOTAL CARBON DIOXIDE 27.1 MMOL/L (24-32); TOTAL PROTEIN 5.2 G/DL (6.4-8.2); eGFR 87 ML/MIN
[2017-11-27 23:09] LABS: POTASSIUM 2.9 MMOL/L (3.5-5.1)
[2017-11-28] MEDS: dextrose 5%-water 1,000 ML IV SCH ×4 (00:02→22:08)
[2017-11-28] MEDS: ampicillin/sulbac 3gm/NS 100ml 100 ML IV SCH ×4 (01:27→22:00)
[2017-11-28 02:00] VITALS: BP 193/82
[2017-11-28] MEDS: hydrALAZINE 20mg/ml inj. IV PRN ×3 (03:02→15:55)
[2017-11-28] MEDS: ondansetron/PF 4mg/2ml inj IV PRN (03:08)
[2017-11-28 06:00] VITALS: BP 166/84
[2017-11-28 06:03] LABS: MAGNESIUM 1.8 MG/DL (1.5-2.4); PHOSPHORUS 1.6 MG/DL (2.3-4.5)
[2017-11-28 06:14] LABS: POTASSIUM 2.7 MMOL/L (3.5-5.1)
[2017-11-28] MEDS: levoTHYROXINE 100mcg tablet PO SCH (07:00)
[2017-11-28] MEDS: lactobacillus rhamnosus 10,000 MMU CELLS/CAPSULE PO SCH ×2 (07:30→17:30)
[2017-11-28] MEDS: docusate sod 100mg capsule PO SCH ×2 (08:00→20:00)
[2017-11-28] MEDS: propranolol 10mg tablet PO SCH ×2 (08:00→22:06)
[2017-11-28] MEDS: potassium Cl 20 mEq SR tablet PO SCH ×3 (08:00→21:00)
[2017-11-28] MEDS: nystatin 15 GM powder TP SCH ×3 (08:00→22:07)
[2017-11-28] MEDS: lisinopril 20mg tablet PO SCH (08:00)
[2017-11-28] MEDS: famotidine 20mg tablet PO SCH (08:00)
[2017-11-28] MEDS: polyethylene glycol 3350 17gm powd pack PO SCH ×2 (08:00→21:00)
[2017-11-28] MEDS: clonazePAM 0.5mg tablet PO SCH ×2 (08:00→22:06)
[2017-11-28] MEDS: K and/or MAG REPLACEMENT MC SCH (08:00)
[2017-11-28] MEDS: heparin, porcine 5000 units/ml vial SQ SCH ×2 (08:00→22:07)
[2017-11-28] MEDS: sertraline 25mg tablet PO SCH (08:00)
[2017-11-28] MEDS: ferrous sulfate 325mg tablet PO SCH (08:00)
[2017-11-28] MEDS: furosemide 40mg tablet PO SCH (08:00)
[2017-11-28] MEDS: lamoTRIgine 100mg tablet PO SCH (08:00)
[2017-11-28] MEDS: LACTOSE-FREE FOOD 237ML (BOOST) PO SCH ×3 (08:00→18:00)
[2017-11-28] MEDS: potassium Cl 40MEQ/NS 500ml 500 ML IV PRN ×2 (09:28→14:40)
[2017-11-28 11:00] VITALS: BP 143/52
[2017-11-28 15:00] VITALS: BP 195/78
[2017-11-28] MEDS ORDERED: LORazepam 2 mg/ml vial IV ONE (16:30)
[2017-11-28 18:00] VITALS: BP 174/71
[2017-11-28] MEDS ORDERED: potassium Cl 10 mEq/100mL bag IV SCH (20:10)
[2017-11-28] MEDS: clonazePAM 0.5mg tablet NG SCH (20:15)
[2017-11-28] MEDS ORDERED: diphenhydrAMINE 50 mg/ml inj IV ONE (20:20)
[2017-11-28] MEDS ORDERED: potassium 10mEq/100ml NS w/LIDOcaine (10mg/bag) IV ONE (20:25)
[2017-11-28] MEDS ORDERED: potassium Cl 40MEQ/NS 500ml 500 ML IV ONE (20:45)
[2017-11-28 22:00] VITALS: BP 184/75
[2017-11-28] MEDS: amLODIPine 5mg tablet PO SCH (22:06)
[2017-11-28] MEDS: atorvastatin 10mg tablet PO SCH (22:06)
[2017-11-28] MEDS: lamoTRIgine 100mg tablet NG SCH (22:18)
[2017-11-29] VITALS (8 sets, daily range): BP systolic 126–196; BP diastolic 60–72
[2017-11-29] MEDS: ampicillin/sulbac 3gm/NS 100ml 100 ML IV SCH ×4 (02:49→20:09)
[2017-11-29] MEDS: dextrose 5%-water 1,000 ML IV SCH ×4 (03:55→21:47)
[2017-11-29 06:29] LABS: ALANINE AMINOTRANSFERASE 121 U/L (12-78); ALBUMIN 2.7 G/DL (3.4-5.0); ALKALINE PHOSPHATASE 84 IU/L (46-116); ANION GAP 9 (8-16); ASPARTATE AMINO TRANSFERASE 61 U/L (10-37); BILIRUBIN,TOTAL 0.6 MG/DL (0.1-1.0); BLOOD UREA NITROGEN 9 MG/DL (7-18); BUN/CREATININE RATIO 14.3 (6.6-38.0); CALCIUM 7.6 MG/DL (8.5-10.1); CHLORIDE 101 MMOL/L (99-107); CREATININE 0.63 MG/DL (0.40-0.90); GLUCOSE 128 MG/DL (70-104); PHOSPHORUS 1.6 MG/DL (2.3-4.5); SODIUM 135 MMOL/L (135-145); TOTAL CARBON DIOXIDE 25.2 MMOL/L (24-32); TOTAL PROTEIN 5.3 G/DL (6.4-8.2); eGFR > 90 ML/MIN
[2017-11-29 06:31] LABS: POTASSIUM 2.7 MMOL/L (3.5-5.1)
[2017-11-29 06:49] LABS: BASOPHILS % (AUTO) 0 % (0-1); EOSINOPHILS % (AUTO) 0.1 % (0-6); HEMOGLOBIN 12.4 g/dl (12.0-16.0); LYMPHOCYTES # (AUTO) 0.9 X10'3 (1.1-4.8); LYMPHOCYTES % (AUTO) 5.4 % (21-51); MEAN CORPUSCULAR HEMOGLOBIN 31.8 PG (27.0-31.0); MEAN CORPUSCULAR HGB CONC 34.5 % (33.0-36.5); MEAN PLATELET VOLUME 8.4 FL (7.4-10.4); MONOCYTES # (AUTO) 1.8 X10'3 (0-0.9); MONOCYTES % (AUTO) 10.9 % (2-12); NEUTROPHILS # (AUTO) 13.9 X10'3 (1.8-7.7); NEUTROPHILS % (AUTO) 83.6 % (42-75); PLATELET COUNT 304 X10'3 (140-440); RED BLOOD COUNT 3.91 X10'6 (4.20-5.60); RED CELL DISTRIBUTION WIDTH 13.8 % (11.5-14.5); WHITE BLOOD COUNT 16.6 X10'3 (4.5-11.0)
[2017-11-29] MEDS: K and/or MAG REPLACEMENT MC SCH (08:00)
[2017-11-29] MEDS: ferrous sulfate 325mg tablet PO SCH (08:00)
[2017-11-29] MEDS: polyethylene glycol 3350 17gm powd pack PO SCH ×2 (08:00→21:00)
[2017-11-29] MEDS: docusate sod 100mg capsule PO SCH ×2 (08:00→20:00)
[2017-11-29] MEDS: LACTOSE-FREE FOOD 237ML (BOOST) PO SCH ×3 (08:00→17:41)
[2017-11-29] MEDS: potassium Cl 20 mEq SR tablet PO SCH ×3 (08:00→21:00)
[2017-11-29] MEDS ORDERED: methadone 5mg tablet PO SCH ×2 (09:00→14:51)
[2017-11-29] MEDS: LIDOcaine 1% 30ml vial 5 ML in potassium Cl 40MEQ/NS 500ml 500 ML IV PRN ×2 (09:29→14:23)
[2017-11-29] MEDS: heparin, porcine 5000 units/ml vial SQ SCH ×2 (09:30→21:46)
[2017-11-29] MEDS: lactobacillus rhamnosus 10,000 MMU CELLS/CAPSULE PO SCH ×2 (10:24→17:34)
[2017-11-29] MEDS: levoTHYROXINE 100mcg tablet PO SCH (10:25)
[2017-11-29] MEDS: famotidine 20mg tablet PO SCH (10:25)
[2017-11-29] MEDS: lisinopril 20mg tablet PO SCH (10:29)
[2017-11-29] MEDS: carbidoba-levodopa 25-100mg tablet NG SCH (10:29)
[2017-11-29] MEDS: furosemide 40mg tablet PO SCH (10:29)
[2017-11-29] MEDS: propranolol 10mg tablet PO SCH (10:30)
[2017-11-29] MEDS: sertraline 25mg tablet PO SCH (10:31)
[2017-11-29] MEDS: clonazePAM 0.5mg tablet NG SCH ×2 (10:31→21:45)
[2017-11-29] MEDS: nystatin 15 GM powder TP SCH ×3 (10:34→21:53)
[2017-11-29] MEDS: hydrALAZINE 20mg/ml inj. IV PRN (15:40)
[2017-11-29] MEDS: lamoTRIgine 100mg tablet NG SCH (21:45)
[2017-11-29] MEDS: amLODIPine 5mg tablet PO SCH (21:45)
[2017-11-29] MEDS: atorvastatin 10mg tablet PO SCH (21:45)
[2017-11-29] MEDS ORDERED: potassium Cl 40MEQ/NS 500ml 500 ML IV ONE (22:55)
[2017-11-29] MEDS ORDERED: magnesium 4gm in 100ml NS 100 ML IV PRN (23:05)
[2017-11-29] MEDS ORDERED: potassium Cl 40MEQ/NS 500ml 500 ML IV PRN (23:05)
[2017-11-29] MEDS ORDERED: potassium Cl 20 mEq SR tablet PO PRN (23:05)
[2017-11-29] MEDS: potassium Cl 40MEQ/NS 500ml 500 ML IV PRN (23:14)
[2017-11-30] MEDS ORDERED: potassium Cl 40MEQ/NS 500ml 500 ML IV ONE (00:37)
[2017-11-30 02:00] VITALS: BP 168/58
[2017-11-30] MEDS: ondansetron/PF 4mg/2ml inj IV PRN (02:02)
[2017-11-30] MEDS: ampicillin/sulbac 3gm/NS 100ml 100 ML IV SCH ×4 (02:28→20:28)
[2017-11-30] MEDS ORDERED: proCHLORperazine 10 MG/2 ml inj IV PRN (03:45)
[2017-11-30 05:27] LABS: BASOPHILS % (AUTO) 0 % (0-1); EOSINOPHILS % (AUTO) 0 % (0-6); HEMATOCRIT 40.7 % (35.0-45.0); HEMOGLOBIN 14.3 g/dl (12.0-16.0); LYMPHOCYTES # (AUTO) 0.8 X10'3 (1.1-4.8); LYMPHOCYTES % (AUTO) 4.2 % (21-51); MEAN CORPUSCULAR HGB CONC 35.1 % (33.0-36.5); MEAN CORPUSCULAR VOLUME 91.2 FL (78-98); MEAN PLATELET VOLUME 8.4 FL (7.4-10.4); MONOCYTES # (AUTO) 1.7 X10'3 (0-0.9); MONOCYTES % (AUTO) 8.6 % (2-12); NEUTROPHILS % (AUTO) 87.2 % (42-75); PLATELET COUNT 310 X10'3 (140-440); RED BLOOD COUNT 4.46 X10'6 (4.20-5.60); RED CELL DISTRIBUTION WIDTH 13.8 % (11.5-14.5); WHITE BLOOD COUNT 19.4 X10'3 (4.5-11.0)
[2017-11-30 05:59] LABS: ALANINE AMINOTRANSFERASE 115 U/L (12-78); ALBUMIN 2.9 G/DL (3.4-5.0); ALKALINE PHOSPHATASE 101 IU/L (46-116); ANION GAP 11 (8-16); ASPARTATE AMINO TRANSFERASE 50 U/L (10-37); BILIRUBIN,TOTAL 0.8 MG/DL (0.1-1.0); BLOOD UREA NITROGEN 8 MG/DL (7-18); BUN/CREATININE RATIO 12.1 (6.6-38.0); CALCIUM 7.8 MG/DL (8.5-10.1); CHLORIDE 100 MMOL/L (99-107); CREATININE 0.66 MG/DL (0.40-0.90); GLUCOSE 143 MG/DL (70-104); MAGNESIUM 1.9 MG/DL (1.5-2.4); POTASSIUM 3.1 MMOL/L (3.5-5.1); SODIUM 135 MMOL/L (135-145); TOTAL CARBON DIOXIDE 24.4 MMOL/L (24-32); TOTAL PROTEIN 5.7 G/DL (6.4-8.2); eGFR 87 ML/MIN
[2017-11-30 06:00] VITALS: BP 151/51
[2017-11-30] MEDS: potassium Cl 40MEQ/NS 500ml 500 ML IV PRN (06:11)
[2017-11-30] MEDS: levoTHYROXINE 100mcg tablet NG SCH (07:00)
[2017-11-30] MEDS: lactobacillus rhamnosus 10,000 MMU CELLS/CAPSULE PO SCH ×2 (07:30→17:23)
[2017-11-30] MEDS: ferrous sulfate 325mg tablet PO SCH (08:00)
[2017-11-30] MEDS: polyethylene glycol 3350 17gm powd pack PO SCH ×2 (08:00→21:00)
[2017-11-30] MEDS: heparin, porcine 5000 units/ml vial SQ SCH ×2 (08:00→20:29)
[2017-11-30] MEDS: potassium Cl 20 mEq SR tablet PO SCH ×3 (08:00→21:00)
[2017-11-30] MEDS: lisinopril 20mg tablet NG SCH (08:00)
[2017-11-30] MEDS: benztropine 1mg tablet PO SCH ×3 (08:00→22:00)
[2017-11-30] MEDS: docusate sod 100mg capsule PO SCH ×2 (08:00→20:00)
[2017-11-30] MEDS: carbidoba-levodopa 25-100mg tablet NG SCH (08:00)
[2017-11-30] MEDS: LACTOSE-FREE FOOD 237ML (BOOST) PO SCH ×3 (08:00→18:00)
[2017-11-30] MEDS: propranolol 10mg tablet NG SCH ×2 (08:00→20:30)
[2017-11-30] MEDS: K and/or MAG REPLACEMENT MC SCH (08:00)
[2017-11-30] MEDS: clonazePAM 0.5mg tablet NG SCH ×2 (08:00→20:30)
[2017-11-30] MEDS: famotidine 20mg tablet PO SCH (08:00)
[2017-11-30] MEDS: nystatin 15 GM powder TP SCH ×3 (08:00→22:01)
[2017-11-30] MEDS: sertraline 25mg tablet NG SCH (08:00)
[2017-11-30] MEDS: lamoTRIgine 100mg tablet NG SCH (08:00)
[2017-11-30] MEDS: furosemide 40mg tablet PO SCH (08:00)
[2017-11-30] MEDS: methadone 5mg tablet NG SCH ×2 (09:13→22:01)
[2017-11-30 10:21] LABS: BASOPHILS % (AUTO) 0.2 % (0-1); EOSINOPHILS # (AUTO) 0.2 X10'3 (0-0.9); EOSINOPHILS % (AUTO) 1.6 % (0-6); HEMATOCRIT 39.2 % (35.0-45.0); HEMOGLOBIN 13.5 g/dl (12.0-16.0); LYMPHOCYTES # (AUTO) 0.7 X10'3 (1.1-4.8); LYMPHOCYTES % (AUTO) 4.3 % (21-51); MEAN CORPUSCULAR HEMOGLOBIN 32.3 PG (27.0-31.0); MEAN CORPUSCULAR HGB CONC 34.3 % (33.0-36.5); MEAN CORPUSCULAR VOLUME 94.1 FL (78-98); MEAN PLATELET VOLUME 7.9 FL (7.4-10.4); MONOCYTES # (AUTO) 1.3 X10'3 (0-0.9); MONOCYTES % (AUTO) 8.2 % (2-12); NEUTROPHILS # (AUTO) 13.3 X10'3 (1.8-7.7); NEUTROPHILS % (AUTO) 85.7 % (42-75); PLATELET COUNT 301 X10'3 (140-440); RED BLOOD COUNT 4.17 X10'6 (4.20-5.60); RED CELL DISTRIBUTION WIDTH 13.5 % (11.5-14.5); WHITE BLOOD COUNT 15.6 X10'3 (4.5-11.0)
[2017-11-30 10:35] LABS: ALANINE AMINOTRANSFERASE 19 U/L (12-78); ALBUMIN 2.6 G/DL (3.4-5.0); ALKALINE PHOSPHATASE 94 IU/L (46-116); ANION GAP 5 (8-16); ASPARTATE AMINO TRANSFERASE 45 U/L (10-37); BILIRUBIN,TOTAL 0.7 MG/DL (0.1-1.0); BLOOD UREA NITROGEN 9 MG/DL (7-18); BUN/CREATININE RATIO 14.5 (6.6-38.0); CALCIUM 7.8 MG/DL (8.5-10.1); CHLORIDE 103 MMOL/L (99-107); CREATININE 0.62 MG/DL (0.40-0.90); GLUCOSE 133 MG/DL (70-104); MAGNESIUM 1.9 MG/DL (1.5-2.4); POTASSIUM 3.4 MMOL/L (3.5-5.1); SODIUM 135 MMOL/L (135-145); TOTAL CARBON DIOXIDE 26.6 MMOL/L (24-32); TOTAL PROTEIN 5.3 G/DL (6.4-8.2); eGFR > 90 ML/MIN
[2017-11-30 11:00] VITALS: BP 129/50
[2017-11-30] MEDS: normal saline 1000ml 1,000 ML IV SCH ×3 (12:22→20:28)
[2017-11-30 15:00] VITALS: BP 171/60
[2017-11-30 19:00] VITALS: BP 163/56
[2017-11-30] MEDS: atorvastatin 10mg tablet PO SCH (22:01)
[2017-11-30] MEDS: amLODIPine 5mg tablet PO SCH (22:01)
[2017-11-30 23:00] VITALS: BP 135/48
[2017-12-01] MEDS: ampicillin/sulbac 3gm/NS 100ml 100 ML IV SCH ×4 (01:37→21:01)
[2017-12-01 03:00] VITALS: BP 154/52
[2017-12-01] MEDS: normal saline 1000ml 1,000 ML IV SCH ×3 (04:36→23:45)
[2017-12-01 06:00] VITALS: BP 159/52
[2017-12-01 06:47] LABS: BASOPHILS % (AUTO) 0.4 % (0-1); EOSINOPHILS # (AUTO) 0.3 X10'3 (0-0.9); HEMATOCRIT 36.3 % (35.0-45.0); HEMOGLOBIN 12.5 g/dl (12.0-16.0); LYMPHOCYTES # (AUTO) 1.1 X10'3 (1.1-4.8); LYMPHOCYTES % (AUTO) 9.6 % (21-51); MEAN CORPUSCULAR HEMOGLOBIN 31.7 PG (27.0-31.0); MEAN CORPUSCULAR HGB CONC 34.4 % (33.0-36.5); MEAN CORPUSCULAR VOLUME 92.4 FL (78-98); MEAN PLATELET VOLUME 8.3 FL (7.4-10.4); MONOCYTES # (AUTO) 1.2 X10'3 (0-0.9); MONOCYTES % (AUTO) 10.4 % (2-12); NEUTROPHILS # (AUTO) 8.5 X10'3 (1.8-7.7); NEUTROPHILS % (AUTO) 76.6 % (42-75); PLATELET COUNT 271 X10'3 (140-440); RED BLOOD COUNT 3.93 X10'6 (4.20-5.60); WHITE BLOOD COUNT 11.1 X10'3 (4.5-11.0)
[2017-12-01 07:02] LABS: ALANINE AMINOTRANSFERASE 81 U/L (12-78); ALBUMIN 2.5 G/DL (3.4-5.0); ALKALINE PHOSPHATASE 87 IU/L (46-116); ANION GAP 8 (8-16); ASPARTATE AMINO TRANSFERASE 35 U/L (10-37); BILIRUBIN,TOTAL 0.7 MG/DL (0.1-1.0); BLOOD UREA NITROGEN 9 MG/DL (7-18); BUN/CREATININE RATIO 14.8 (6.6-38.0); C-REACTIVE PROTEIN 1.47 MG/DL (0.0-0.5); CALCIUM 7.6 MG/DL (8.5-10.1); CHLORIDE 105 MMOL/L (99-107); CREATININE 0.61 MG/DL (0.40-0.90); GLUCOSE 82 MG/DL (70-104); MAGNESIUM 1.9 MG/DL (1.5-2.4); SODIUM 139 MMOL/L (135-145); TOTAL CARBON DIOXIDE 26.1 MMOL/L (24-32); eGFR > 90 ML/MIN
[2017-12-01 07:17] LABS: POTASSIUM 2.8 MMOL/L (3.5-5.1)
[2017-12-01] MEDS: docusate sod 100mg capsule PO SCH ×2 (08:00→20:00)
[2017-12-01] MEDS: propranolol 10mg tablet NG SCH ×2 (08:00→20:00)
[2017-12-01] MEDS: polyethylene glycol 3350 17gm powd pack PO SCH ×2 (08:00→21:01)
[2017-12-01] MEDS: K and/or MAG REPLACEMENT MC SCH (08:00)
[2017-12-01] MEDS: potassium Cl 20 mEq SR tablet PO SCH ×2 (08:00→13:00)
[2017-12-01] MEDS: carbidoba-levodopa 25-100mg tablet NG SCH (08:24)
[2017-12-01] MEDS: ferrous sulfate 325mg tablet PO SCH (08:24)
[2017-12-01] MEDS: benztropine 1mg tablet PO SCH ×2 (08:24→13:00)
[2017-12-01] MEDS: sertraline 25mg tablet NG SCH (08:24)
[2017-12-01] MEDS: furosemide 40mg tablet PO SCH (08:24)
[2017-12-01] MEDS: lactobacillus rhamnosus 10,000 MMU CELLS/CAPSULE PO SCH ×2 (08:24→17:04)
[2017-12-01] MEDS: famotidine 20mg tablet PO SCH (08:24)
[2017-12-01] MEDS: lamoTRIgine 100mg tablet NG SCH (08:25)
[2017-12-01] MEDS: methadone 5mg tablet NG SCH (08:25)
[2017-12-01] MEDS: lisinopril 20mg tablet NG SCH (08:25)
[2017-12-01] MEDS: clonazePAM 0.5mg tablet NG SCH (08:25)
[2017-12-01] MEDS: heparin, porcine 5000 units/ml vial SQ SCH ×2 (08:26→21:02)
[2017-12-01] MEDS: LACTOSE-FREE FOOD 237ML (BOOST) PO SCH ×3 (08:27→18:00)
[2017-12-01] MEDS: nystatin 15 GM powder TP SCH ×3 (08:27→21:04)
[2017-12-01] MEDS: levoTHYROXINE 100mcg tablet NG SCH (08:28)
[2017-12-01] MEDS: LIDOcaine 1% 30ml vial 5 ML in potassium Cl 40MEQ/NS 500ml 500 ML IV PRN ×2 (09:23→15:04)
[2017-12-01 11:00] VITALS: BP 138/52
[2017-12-01 15:00] VITALS: BP 157/60
[2017-12-01] MEDS: hydrALAZINE 20mg/ml inj. IV PRN (17:11)
[2017-12-01 19:00] VITALS: BP 172/61
[2017-12-01] MEDS: potassium chloride 8mEq ER tablet PO SCH (21:00)
[2017-12-01] MEDS: amLODIPine 5mg tablet PO SCH (21:01)
[2017-12-01] MEDS: atorvastatin 10mg tablet PO SCH (21:01)
[2017-12-01 23:00] VITALS: BP 160/53
[2017-12-02] MEDS: ampicillin/sulbac 3gm/NS 100ml 100 ML IV SCH ×4 (02:24→20:19)
[2017-12-02 03:00] VITALS: BP 167/56
[2017-12-02] MEDS: normal saline 1000ml 1,000 ML IV SCH ×2 (04:46→14:57)
[2017-12-02 05:15] LABS: BASOPHILS % (AUTO) 0.4 % (0-1); EOSINOPHILS # (AUTO) 0.2 X10'3 (0-0.9); EOSINOPHILS % (AUTO) 1.4 % (0-6); HEMATOCRIT 37.9 % (35.0-45.0); HEMOGLOBIN 12.9 g/dl (12.0-16.0); LYMPHOCYTES # (AUTO) 0.9 X10'3 (1.1-4.8); LYMPHOCYTES % (AUTO) 7.8 % (21-51); MEAN CORPUSCULAR HEMOGLOBIN 31.7 PG (27.0-31.0); MEAN CORPUSCULAR HGB CONC 34.1 % (33.0-36.5); MEAN CORPUSCULAR VOLUME 92.9 FL (78-98); MEAN PLATELET VOLUME 8.2 FL (7.4-10.4); MONOCYTES % (AUTO) 8.6 % (2-12); NEUTROPHILS # (AUTO) 9.6 X10'3 (1.8-7.7); NEUTROPHILS % (AUTO) 81.8 % (42-75); PLATELET COUNT 277 X10'3 (140-440); RED BLOOD COUNT 4.07 X10'6 (4.20-5.60); RED CELL DISTRIBUTION WIDTH 14.3 % (11.5-14.5); WHITE BLOOD COUNT 11.7 X10'3 (4.5-11.0)
[2017-12-02 05:37] LABS: ALANINE AMINOTRANSFERASE 79 U/L (12-78); ALBUMIN 2.6 G/DL (3.4-5.0); ALKALINE PHOSPHATASE 103 IU/L (46-116); ANION GAP 9 (8-16); ASPARTATE AMINO TRANSFERASE 27 U/L (10-37); BILIRUBIN,TOTAL 0.8 MG/DL (0.1-1.0); BLOOD UREA NITROGEN 10 MG/DL (7-18); BUN/CREATININE RATIO 15.4 (6.6-38.0); CHLORIDE 105 MMOL/L (99-107); CREATININE 0.65 MG/DL (0.40-0.90); GLUCOSE 88 MG/DL (70-104); MAGNESIUM 1.9 MG/DL (1.5-2.4); POTASSIUM 3.3 MMOL/L (3.5-5.1); SODIUM 139 MMOL/L (135-145); TOTAL CARBON DIOXIDE 24.9 MMOL/L (24-32); TOTAL PROTEIN 5.2 G/DL (6.4-8.2); eGFR 89 ML/MIN
[2017-12-02 06:00] VITALS: BP 177/85
[2017-12-02] MEDS: potassium chloride 8mEq ER tablet PO SCH ×3 (08:00→20:30)
[2017-12-02] MEDS: LACTOSE-FREE FOOD 237ML (BOOST) PO SCH ×3 (08:00→18:00)
[2017-12-02] MEDS: K and/or MAG REPLACEMENT MC SCH (08:00)
[2017-12-02] MEDS: polyethylene glycol 3350 17gm powd pack PO SCH ×2 (08:00→20:18)
[2017-12-02] MEDS: docusate sod 100mg capsule PO SCH ×2 (08:00→20:19)
[2017-12-02] MEDS ORDERED: potassium chloride 8mEq ER tablet PO ONE (08:20)
[2017-12-02] MEDS: propranolol 10mg tablet NG SCH ×2 (08:24→20:19)
[2017-12-02] MEDS: furosemide 40mg tablet PO SCH (08:25)
[2017-12-02] MEDS: sertraline 25mg tablet NG SCH (08:25)
[2017-12-02] MEDS: lisinopril 20mg tablet NG SCH (08:26)
[2017-12-02] MEDS: lamoTRIgine 100mg tablet NG SCH (08:26)
[2017-12-02] MEDS: famotidine 20mg tablet PO SCH (08:26)
[2017-12-02] MEDS: ferrous sulfate 325mg tablet PO SCH (08:27)
[2017-12-02] MEDS: lactobacillus rhamnosus 10,000 MMU CELLS/CAPSULE PO SCH ×2 (08:27→17:21)
[2017-12-02] MEDS: heparin, porcine 5000 units/ml vial SQ SCH ×2 (08:28→20:18)
[2017-12-02] MEDS: levoTHYROXINE 100mcg tablet NG SCH (08:52)
[2017-12-02] MEDS: nystatin 15 GM powder TP SCH ×3 (08:53→20:17)
[2017-12-02 11:00] VITALS: BP 156/56
[2017-12-02 15:00] VITALS: BP 151/51
[2017-12-02 19:00] VITALS: BP 160/51
[2017-12-02] MEDS: atorvastatin 10mg tablet PO SCH (20:19)
[2017-12-02] MEDS: amLODIPine 5mg tablet PO SCH (20:19)
[2017-12-02 23:00] VITALS: BP 153/57
[2017-12-03 03:00] VITALS: BP 129/47
[2017-12-03] MEDS: ampicillin/sulbac 3gm/NS 100ml 100 ML IV SCH ×4 (03:44→19:45)
[2017-12-03 06:00] VITALS: BP 132/48
[2017-12-03 06:32] LABS: BASOPHILS % (AUTO) 0.3 % (0-1); EOSINOPHILS # (AUTO) 0.4 X10'3 (0-0.9); EOSINOPHILS % (AUTO) 2.8 % (0-6); HEMATOCRIT 37.1 % (35.0-45.0); HEMOGLOBIN 12.9 g/dl (12.0-16.0); LYMPHOCYTES # (AUTO) 1.2 X10'3 (1.1-4.8); MEAN CORPUSCULAR HEMOGLOBIN 32.3 PG (27.0-31.0); MEAN CORPUSCULAR HGB CONC 34.7 % (33.0-36.5); MEAN CORPUSCULAR VOLUME 92.9 FL (78-98); MEAN PLATELET VOLUME 8.3 FL (7.4-10.4); MONOCYTES # (AUTO) 1.1 X10'3 (0-0.9); MONOCYTES % (AUTO) 8.5 % (2-12); NEUTROPHILS # (AUTO) 10.7 X10'3 (1.8-7.7); NEUTROPHILS % (AUTO) 79.4 % (42-75); PLATELET COUNT 275 X10'3 (140-440); RED BLOOD COUNT 3.99 X10'6 (4.20-5.60); RED CELL DISTRIBUTION WIDTH 14.5 % (11.5-14.5); WHITE BLOOD COUNT 13.5 X10'3 (4.5-11.0)
[2017-12-03 06:53] LABS: ALANINE AMINOTRANSFERASE 78 U/L (12-78); ALBUMIN 2.7 G/DL (3.4-5.0); ALBUMIN/GLOBULIN RATIO 0.9 (1.1-1.5); ALKALINE PHOSPHATASE 110 IU/L (46-116); ANION GAP 6 (8-16); ASPARTATE AMINO TRANSFERASE 32 U/L (10-37); BILIRUBIN,TOTAL 0.8 MG/DL (0.1-1.0); BLOOD UREA NITROGEN 9 MG/DL (7-18); BUN/CREATININE RATIO 12.7 (6.6-38.0); CALCIUM 8.3 MG/DL (8.5-10.1); CHLORIDE 102 MMOL/L (99-107); CREATININE 0.71 MG/DL (0.40-0.90); GLUCOSE 102 MG/DL (70-104); POTASSIUM 3.5 MMOL/L (3.5-5.1); SODIUM 137 MMOL/L (135-145); TOTAL CARBON DIOXIDE 29.1 MMOL/L (24-32); TOTAL PROTEIN 5.6 G/DL (6.4-8.2); eGFR 80 ML/MIN
[2017-12-03] MEDS: K and/or MAG REPLACEMENT MC SCH (08:00)
[2017-12-03] MEDS: LACTOSE-FREE FOOD 237ML (BOOST) PO SCH ×3 (08:00→19:53)
[2017-12-03] MEDS: nystatin 15 GM powder TP SCH ×3 (08:00→19:53)
[2017-12-03] MEDS: propranolol 10mg tablet NG SCH ×2 (08:00→19:44)
[2017-12-03] MEDS: polyethylene glycol 3350 17gm powd pack PO SCH ×2 (08:03→19:53)
[2017-12-03] MEDS: levoTHYROXINE 100mcg tablet NG SCH (08:04)
[2017-12-03] MEDS: furosemide 40mg tablet PO SCH (08:06)
[2017-12-03] MEDS: docusate sod 100mg capsule PO SCH ×2 (08:06→19:53)
[2017-12-03] MEDS: lisinopril 20mg tablet NG SCH (08:06)
[2017-12-03] MEDS: potassium chloride 8mEq ER tablet PO SCH ×3 (08:07→19:45)
[2017-12-03] MEDS: famotidine 20mg tablet PO SCH (08:07)
[2017-12-03] MEDS: lactobacillus rhamnosus 10,000 MMU CELLS/CAPSULE PO SCH ×2 (08:07→19:45)
[2017-12-03] MEDS: lamoTRIgine 100mg tablet NG SCH (08:07)
[2017-12-03] MEDS: sertraline 25mg tablet NG SCH (08:07)
[2017-12-03] MEDS: ferrous sulfate 325mg tablet PO SCH (08:07)
[2017-12-03] MEDS: heparin, porcine 5000 units/ml vial SQ SCH ×2 (08:12→19:44)
[2017-12-03 11:00] VITALS: BP 145/60
[2017-12-03 15:00] VITALS: BP 178/59
[2017-12-03 19:00] VITALS: BP 158/48
[2017-12-03] MEDS: amLODIPine 5mg tablet PO SCH (19:44)
[2017-12-03] MEDS: atorvastatin 10mg tablet PO SCH (19:44)
[2017-12-03 23:00] VITALS: BP 163/44
[2017-12-04] MEDS: ampicillin/sulbac 3gm/NS 100ml 100 ML IV SCH ×4 (02:14→21:32)
[2017-12-04 03:00] VITALS: BP 160/59
[2017-12-04 06:00] VITALS: BP 175/60
[2017-12-04 06:09] LABS: BASOPHILS % (AUTO) 0.2 % (0-1); EOSINOPHILS # (AUTO) 0.4 X10'3 (0-0.9); EOSINOPHILS % (AUTO) 2.7 % (0-6); HEMATOCRIT 36.9 % (35.0-45.0); HEMOGLOBIN 12.7 g/dl (12.0-16.0); LYMPHOCYTES # (AUTO) 1.1 X10'3 (1.1-4.8); LYMPHOCYTES % (AUTO) 7.9 % (21-51); MEAN CORPUSCULAR HEMOGLOBIN 31.8 PG (27.0-31.0); MEAN CORPUSCULAR HGB CONC 34.3 % (33.0-36.5); MEAN CORPUSCULAR VOLUME 92.6 FL (78-98); MEAN PLATELET VOLUME 8.2 FL (7.4-10.4); MONOCYTES # (AUTO) 1.5 X10'3 (0-0.9); MONOCYTES % (AUTO) 10.2 % (2-12); NEUTROPHILS # (AUTO) 11.4 X10'3 (1.8-7.7); PLATELET COUNT 266 X10'3 (140-440); RED BLOOD COUNT 3.99 X10'6 (4.20-5.60); RED CELL DISTRIBUTION WIDTH 13.9 % (11.5-14.5); WHITE BLOOD COUNT 14.4 X10'3 (4.5-11.0)
[2017-12-04 07:04] LABS: ALANINE AMINOTRANSFERASE 71 U/L (12-78); ALBUMIN 2.6 G/DL (3.4-5.0); ALBUMIN/GLOBULIN RATIO 0.8 (1.1-1.5); ALKALINE PHOSPHATASE 109 IU/L (46-116); ANION GAP 7 (8-16); ASPARTATE AMINO TRANSFERASE 34 U/L (10-37); BILIRUBIN,TOTAL 0.6 MG/DL (0.1-1.0); BLOOD UREA NITROGEN 10 MG/DL (7-18); BUN/CREATININE RATIO 13.5 (6.6-38.0); CALCIUM 8.5 MG/DL (8.5-10.1); CHLORIDE 102 MMOL/L (99-107); CREATININE 0.74 MG/DL (0.40-0.90); GLUCOSE 114 MG/DL (70-104); POTASSIUM 3.4 MMOL/L (3.5-5.1); SODIUM 139 MMOL/L (135-145); TOTAL CARBON DIOXIDE 29.6 MMOL/L (24-32); TOTAL PROTEIN 5.7 G/DL (6.4-8.2); eGFR 77 ML/MIN
[2017-12-04] MEDS: K and/or MAG REPLACEMENT MC SCH (08:00)
[2017-12-04] MEDS: docusate sod 100mg capsule PO SCH ×3 (08:00→20:00)
[2017-12-04] MEDS: LACTOSE-FREE FOOD 237ML (BOOST) PO SCH ×3 (08:00→21:34)
[2017-12-04] MEDS: propranolol 10mg tablet NG SCH ×2 (08:00→21:33)
[2017-12-04] MEDS: sertraline 25mg tablet NG SCH (08:53)
[2017-12-04] MEDS: lactobacillus rhamnosus 10,000 MMU CELLS/CAPSULE PO SCH ×2 (08:53→21:33)
[2017-12-04] MEDS: ferrous sulfate 325mg tablet PO SCH (08:54)
[2017-12-04] MEDS: lisinopril 20mg tablet NG SCH (08:54)
[2017-12-04] MEDS: potassium chloride 8mEq ER tablet PO SCH ×3 (08:55→21:32)
[2017-12-04] MEDS: furosemide 40mg tablet PO SCH (08:55)
[2017-12-04] MEDS: famotidine 20mg tablet PO SCH (08:56)
[2017-12-04] MEDS: heparin, porcine 5000 units/ml vial SQ SCH ×2 (08:57→21:34)
[2017-12-04] MEDS: nystatin 15 GM powder TP SCH ×3 (08:58→21:34)
[2017-12-04] MEDS: lamoTRIgine 100mg tablet NG SCH (08:58)
[2017-12-04] MEDS: polyethylene glycol 3350 17gm powd pack PO SCH ×2 (08:59→21:00)
[2017-12-04] MEDS: levoTHYROXINE 100mcg tablet NG SCH (09:09)
[2017-12-04] MEDS: megestrol acetate 400mg/10ml UD oral suspension PO SCH (09:10)
[2017-12-04] MEDS ORDERED: magnesium 4gm in 100ml NS 100 ML IV PRN (10:55)
[2017-12-04] MEDS ORDERED: magnesium Cl slow-release 64mg tablet PO PRN (10:55)
[2017-12-04] MEDS ORDERED: magnesium 2GM in 50ml NS 50 ML IV PRN (10:55)
[2017-12-04] MEDS ORDERED: potassium Cl 20 mEq SR tablet PO PRN (10:55)
[2017-12-04] MEDS ORDERED: potassium Cl 40MEQ/NS 500ml 500 ML IV PRN ×2 (10:55)
[2017-12-04 11:00] VITALS: BP 117/57
[2017-12-04] MEDS: potassium Cl 20 mEq SR tablet PO PRN ×2 (12:37→21:33)
[2017-12-04 15:00] VITALS: BP 169/56
[2017-12-04 19:00] VITALS: BP 167/58
[2017-12-04] MEDS: atorvastatin 10mg tablet PO SCH (21:32)
[2017-12-04] MEDS: amLODIPine 5mg tablet PO SCH (21:32)
[2017-12-04 23:00] VITALS: BP 164/95
[2017-12-05] VITALS (7 sets, daily range): BP systolic 157–174; BP diastolic 54–73
[2017-12-05] MEDS: ampicillin/sulbac 3gm/NS 100ml 100 ML IV SCH ×4 (03:04→22:20)
[2017-12-05] MEDS: docusate sod 100mg capsule PO SCH ×2 (08:00→22:24)
[2017-12-05] MEDS: K and/or MAG REPLACEMENT MC SCH (08:00)
[2017-12-05] MEDS: LACTOSE-FREE FOOD 237ML (BOOST) PO SCH ×3 (08:00→18:00)
[2017-12-05] MEDS: famotidine 20mg tablet PO SCH (08:59)
[2017-12-05] MEDS: ferrous sulfate 325mg tablet PO SCH (08:59)
[2017-12-05] MEDS: furosemide 40mg tablet PO SCH (08:59)
[2017-12-05] MEDS: lisinopril 20mg tablet NG SCH (08:59)
[2017-12-05] MEDS: lamoTRIgine 100mg tablet NG SCH (08:59)
[2017-12-05] MEDS: lactobacillus rhamnosus 10,000 MMU CELLS/CAPSULE PO SCH ×2 (08:59→22:21)
[2017-12-05] MEDS: potassium chloride 8mEq ER tablet PO SCH ×3 (09:00→21:00)
[2017-12-05] MEDS: nystatin 15 GM powder TP SCH ×3 (09:00→22:24)
[2017-12-05] MEDS: polyethylene glycol 3350 17gm powd pack PO SCH ×2 (09:01→22:23)
[2017-12-05] MEDS: propranolol 10mg tablet NG SCH ×2 (09:24→22:20)
[2017-12-05] MEDS: levoTHYROXINE 100mcg tablet NG SCH (09:24)
[2017-12-05] MEDS: heparin, porcine 5000 units/ml vial SQ SCH ×2 (09:24→22:23)
[2017-12-05] MEDS: sertraline 25mg tablet NG SCH (09:24)
[2017-12-05] MEDS: megestrol acetate 400mg/10ml UD oral suspension PO SCH (14:20)
[2017-12-05] MEDS: acetaminophen 325mg tablet PO PRN (22:19)
[2017-12-05] MEDS: atorvastatin 10mg tablet PO SCH (22:24)
[2017-12-05] MEDS: amLODIPine 5mg tablet PO SCH (22:24)
[2017-12-06 02:00] VITALS: BP 122/95
[2017-12-06] MEDS: ampicillin/sulbac 3gm/NS 100ml 100 ML IV SCH ×4 (02:00→20:17)
[2017-12-06] MEDS: acetaminophen 325mg tablet PO PRN ×3 (04:58→22:07)
[2017-12-06 05:30] VITALS: BP 159/93
[2017-12-06 05:42] LABS: ALANINE AMINOTRANSFERASE 57 U/L (12-78); ALBUMIN 2.8 G/DL (3.4-5.0); ALBUMIN/GLOBULIN RATIO 0.8 (1.1-1.5); ALKALINE PHOSPHATASE 113 IU/L (46-116); ANION GAP 7 (8-16); ASPARTATE AMINO TRANSFERASE 28 U/L (10-37); BILIRUBIN,TOTAL 0.6 MG/DL (0.1-1.0); BLOOD UREA NITROGEN 13 MG/DL (7-18); BUN/CREATININE RATIO 16.7 (6.6-38.0); CALCIUM 9.1 MG/DL (8.5-10.1); CHLORIDE 103 MMOL/L (99-107); CREATININE 0.78 MG/DL (0.40-0.90); GLUCOSE 102 MG/DL (70-104); POTASSIUM 3.7 MMOL/L (3.5-5.1); SODIUM 139 MMOL/L (135-145); TOTAL CARBON DIOXIDE 29.2 MMOL/L (24-32); TOTAL PROTEIN 6.1 G/DL (6.4-8.2); eGFR 72 ML/MIN
[2017-12-06] MEDS: levoTHYROXINE 100mcg tablet NG SCH (07:00)
[2017-12-06] MEDS: benztropine 1mg tablet PO SCH ×3 (08:00→20:13)
[2017-12-06] MEDS: docusate sod 100mg capsule PO SCH ×2 (08:00→20:13)
[2017-12-06] MEDS: carbidoba-levodopa 25-100mg tablet NG SCH (08:00)
[2017-12-06] MEDS: heparin, porcine 5000 units/ml vial SQ SCH ×2 (08:00→20:17)
[2017-12-06] MEDS: LACTOSE-FREE FOOD 237ML (BOOST) PO SCH ×3 (08:00→18:00)
[2017-12-06] MEDS: sertraline 25mg tablet NG SCH (08:00)
[2017-12-06] MEDS: amLODIPine 5mg tablet PO SCH ×2 (08:00→20:12)
[2017-12-06] MEDS: clonazePAM 0.5mg tablet NG SCH ×2 (08:00→20:17)
[2017-12-06] MEDS: potassium chloride 8mEq ER tablet PO SCH ×3 (08:00→20:17)
[2017-12-06] MEDS: K and/or MAG REPLACEMENT MC SCH (08:00)
[2017-12-06] MEDS: polyethylene glycol 3350 17gm powd pack PO SCH ×2 (08:00→21:00)
[2017-12-06] MEDS: ferrous sulfate 325mg tablet PO SCH (08:00)
[2017-12-06] MEDS: lisinopril 20mg tablet NG SCH (08:00)
[2017-12-06] MEDS: famotidine 20mg tablet PO SCH (08:00)
[2017-12-06] MEDS: lactobacillus rhamnosus 10,000 MMU CELLS/CAPSULE PO SCH ×2 (08:00→20:17)
[2017-12-06] MEDS: lamoTRIgine 100mg tablet NG SCH (08:00)
[2017-12-06] MEDS: nystatin 15 GM powder TP SCH ×3 (08:00→21:00)
[2017-12-06] MEDS: furosemide 40mg tablet PO SCH (08:00)
[2017-12-06] MEDS: megestrol acetate 400mg/10ml UD oral suspension PO SCH (08:00)
[2017-12-06] MEDS: propranolol 10mg tablet NG SCH ×2 (08:00→20:00)
[2017-12-06 11:00] VITALS: BP 174/58
[2017-12-06 15:00] VITALS: BP 151/58
[2017-12-06 19:00] VITALS: BP 124/86
[2017-12-06] MEDS: atorvastatin 10mg tablet PO SCH (20:12)
[2017-12-06 23:00] VITALS: BP 145/63
[2017-12-07] MEDS: ampicillin/sulbac 3gm/NS 100ml 100 ML IV SCH ×4 (02:18→19:59)
[2017-12-07 03:00] VITALS: BP 150/57
[2017-12-07 05:12] LABS: BASOPHILS % (AUTO) 0.7 % (0-1); EOSINOPHILS # (AUTO) 0.2 X10'3 (0-0.9); HEMATOCRIT 38.6 % (35.0-45.0); HEMOGLOBIN 13.4 g/dl (12.0-16.0); LYMPHOCYTES # (AUTO) 1.3 X10'3 (1.1-4.8); LYMPHOCYTES % (AUTO) 19.1 % (21-51); MEAN CORPUSCULAR HEMOGLOBIN 31.9 PG (27.0-31.0); MEAN CORPUSCULAR HGB CONC 34.8 % (33.0-36.5); MEAN CORPUSCULAR VOLUME 91.7 FL (78-98); MEAN PLATELET VOLUME 8.1 FL (7.4-10.4); MONOCYTES # (AUTO) 1.2 X10'3 (0-0.9); MONOCYTES % (AUTO) 17.9 % (2-12); NEUTROPHILS # (AUTO) 4.1 X10'3 (1.8-7.7); NEUTROPHILS % (AUTO) 59.3 % (42-75); PLATELET COUNT 289 X10'3 (140-440); RED BLOOD COUNT 4.21 X10'6 (4.20-5.60); RED CELL DISTRIBUTION WIDTH 14.5 % (11.5-14.5); WHITE BLOOD COUNT 6.9 X10'3 (4.5-11.0)
[2017-12-07 05:35] LABS: ALANINE AMINOTRANSFERASE 52 U/L (12-78); ALBUMIN 2.7 G/DL (3.4-5.0); ALBUMIN/GLOBULIN RATIO 0.8 (1.1-1.5); ALKALINE PHOSPHATASE 105 IU/L (46-116); ANION GAP 8 (8-16); ASPARTATE AMINO TRANSFERASE 25 U/L (10-37); BILIRUBIN,TOTAL 0.5 MG/DL (0.1-1.0); BLOOD UREA NITROGEN 16 MG/DL (7-18); BUN/CREATININE RATIO 17.6 (6.6-38.0); CALCIUM 8.8 MG/DL (8.5-10.1); CHLORIDE 104 MMOL/L (99-107); CREATININE 0.91 MG/DL (0.40-0.90); GLUCOSE 109 MG/DL (70-104); POTASSIUM 3.4 MMOL/L (3.5-5.1); PREALBUMIN 19.1 MG/DL (19-36); SODIUM 139 MMOL/L (135-145); TOTAL CARBON DIOXIDE 26.7 MMOL/L (24-32); TOTAL PROTEIN 5.9 G/DL (6.4-8.2); eGFR 60 ML/MIN
[2017-12-07 06:00] VITALS: BP 132/47
[2017-12-07] MEDS: K and/or MAG REPLACEMENT MC SCH (08:00)
[2017-12-07] MEDS: LACTOSE-FREE FOOD 237ML (BOOST) PO SCH ×4 (08:00→18:00)
[2017-12-07] MEDS: polyethylene glycol 3350 17gm powd pack PO SCH ×2 (08:00→21:00)
[2017-12-07] MEDS: megestrol acetate 400mg/10ml UD oral suspension PO SCH (08:00)
[2017-12-07] MEDS: propranolol 10mg tablet NG SCH ×3 (08:00→20:00)
[2017-12-07] MEDS: sertraline 25mg tablet NG SCH (08:25)
[2017-12-07] MEDS: carbidoba-levodopa 25-100mg tablet NG SCH (08:27)
[2017-12-07] MEDS: clonazePAM 0.5mg tablet NG SCH ×2 (08:27→19:59)
[2017-12-07] MEDS: lisinopril 20mg tablet NG SCH (08:27)
[2017-12-07] MEDS: lactobacillus rhamnosus 10,000 MMU CELLS/CAPSULE PO SCH ×2 (08:27→19:59)
[2017-12-07] MEDS: potassium chloride 8mEq ER tablet PO SCH ×3 (08:28→19:59)
[2017-12-07] MEDS: docusate sod 100mg capsule PO SCH ×2 (08:28→19:58)
[2017-12-07] MEDS: ferrous sulfate 325mg tablet PO SCH (08:28)
[2017-12-07] MEDS: amLODIPine 5mg tablet PO SCH ×2 (08:28→20:00)
[2017-12-07] MEDS: furosemide 40mg tablet PO SCH (08:28)
[2017-12-07] MEDS: famotidine 20mg tablet PO SCH (08:28)
[2017-12-07] MEDS: lamoTRIgine 100mg tablet NG SCH (08:28)
[2017-12-07] MEDS: nystatin 15 GM powder TP SCH ×3 (08:29→20:00)
[2017-12-07] MEDS: benztropine 1mg tablet PO SCH ×3 (08:29→20:00)
[2017-12-07] MEDS: heparin, porcine 5000 units/ml vial SQ SCH ×2 (08:29→19:59)
[2017-12-07] MEDS: levoTHYROXINE 100mcg tablet NG SCH (08:37)
[2017-12-07 11:00] VITALS: BP 119/67
[2017-12-07 12:18] LABS: TOTAL CELLS COUNTED 100
[2017-12-07 12:19] LABS: PLATELET ESTIMATE NORMAL; SMUDGE CELLS 1+
[2017-12-07 12:20] LABS: TOXIC GRANULATION 1+
[2017-12-07 15:00] VITALS: BP 136/46
[2017-12-07 19:00] VITALS: BP 125/89
[2017-12-07] MEDS: atorvastatin 10mg tablet PO SCH (19:59)
[2017-12-07] MEDS: acetaminophen 325mg tablet PO PRN (20:43)
[2017-12-07 23:00] VITALS: BP 148/52
[2017-12-08] MEDS: ampicillin/sulbac 3gm/NS 100ml 100 ML IV SCH ×4 (02:32→21:48)
[2017-12-08 03:00] VITALS: BP 122/65
[2017-12-08] MEDS: ondansetron/PF 4mg/2ml inj IV PRN (04:05)
[2017-12-08 06:00] VITALS: BP 121/54
[2017-12-08 06:12] LABS: BASOPHILS # (AUTO) 0.1 X10'3 (0-0.2); BASOPHILS % (AUTO) 0.9 % (0-1); EOSINOPHILS # (AUTO) 0.2 X10'3 (0-0.9); HEMATOCRIT 34.7 % (35.0-45.0); HEMOGLOBIN 11.8 g/dl (12.0-16.0); LYMPHOCYTES # (AUTO) 1.1 X10'3 (1.1-4.8); LYMPHOCYTES % (AUTO) 14.7 % (21-51); MEAN CORPUSCULAR VOLUME 94.3 FL (78-98); MEAN PLATELET VOLUME 8.1 FL (7.4-10.4); MONOCYTES % (AUTO) 13.2 % (2-12); NEUTROPHILS # (AUTO) 5.1 X10'3 (1.8-7.7); NEUTROPHILS % (AUTO) 68.2 % (42-75); PLATELET COUNT 283 X10'3 (140-440); RED BLOOD COUNT 3.67 X10'6 (4.20-5.60); RED CELL DISTRIBUTION WIDTH 14.9 % (11.5-14.5); WHITE BLOOD COUNT 7.6 X10'3 (4.5-11.0)
[2017-12-08 06:27] LABS: ALANINE AMINOTRANSFERASE 33 U/L (12-78); ALBUMIN 2.6 G/DL (3.4-5.0); ALBUMIN/GLOBULIN RATIO 0.9 (1.1-1.5); ALKALINE PHOSPHATASE 91 IU/L (46-116); ANION GAP 8 (8-16); ASPARTATE AMINO TRANSFERASE 24 U/L (10-37); BILIRUBIN,TOTAL 0.4 MG/DL (0.1-1.0); BLOOD UREA NITROGEN 26 MG/DL (7-18); BUN/CREATININE RATIO 26.3 (6.6-38.0); CALCIUM 8.8 MG/DL (8.5-10.1); CHLORIDE 108 MMOL/L (99-107); CREATININE 0.99 MG/DL (0.40-0.90); GLUCOSE 135 MG/DL (70-104); POTASSIUM 3.9 MMOL/L (3.5-5.1); SODIUM 142 MMOL/L (135-145); TOTAL CARBON DIOXIDE 25.7 MMOL/L (24-32); TOTAL PROTEIN 5.6 G/DL (6.4-8.2); eGFR 55 ML/MIN
[2017-12-08] MEDS: K and/or MAG REPLACEMENT MC SCH (08:00)
[2017-12-08] MEDS: LACTOSE-FREE FOOD 237ML (BOOST) PO SCH ×3 (08:00→18:00)
[2017-12-08] MEDS: polyethylene glycol 3350 17gm powd pack PO SCH ×2 (08:00→19:51)
[2017-12-08] MEDS: docusate sod 100mg capsule PO SCH ×2 (08:00→19:51)
[2017-12-08] MEDS: famotidine 20mg tablet PO SCH (10:29)
[2017-12-08] MEDS: carbidoba-levodopa 25-100mg tablet NG SCH (10:29)
[2017-12-08] MEDS: lamoTRIgine 100mg tablet NG SCH (10:29)
[2017-12-08] MEDS: lactobacillus rhamnosus 10,000 MMU CELLS/CAPSULE PO SCH ×2 (10:29→21:48)
[2017-12-08] MEDS: ferrous sulfate 325mg tablet PO SCH (10:29)
[2017-12-08] MEDS: potassium chloride 8mEq ER tablet PO SCH ×3 (10:30→21:48)
[2017-12-08] MEDS: amLODIPine 5mg tablet PO SCH ×2 (10:30→21:48)
[2017-12-08] MEDS: sertraline 25mg tablet NG SCH (10:30)
[2017-12-08] MEDS: furosemide 40mg tablet PO SCH (10:30)
[2017-12-08] MEDS: megestrol acetate 400mg/10ml UD oral suspension PO SCH (10:30)
[2017-12-08] MEDS: lisinopril 20mg tablet NG SCH (10:30)
[2017-12-08] MEDS: benztropine 1mg tablet PO SCH ×3 (10:30→21:49)
[2017-12-08] MEDS: clonazePAM 0.5mg tablet NG SCH ×2 (10:31→21:49)
[2017-12-08] MEDS: propranolol 10mg tablet NG SCH ×2 (10:31→21:49)
[2017-12-08] MEDS: nystatin 15 GM powder TP SCH ×3 (10:33→21:00)
[2017-12-08] MEDS: heparin, porcine 5000 units/ml vial SQ SCH ×2 (10:33→21:50)
[2017-12-08] MEDS: levoTHYROXINE 100mcg tablet NG SCH (10:36)
[2017-12-08 11:00] VITALS: BP 136/90
[2017-12-08 16:34] VITALS: BP 125/92
[2017-12-08 18:00] VITALS: BP 145/61
[2017-12-08] MEDS: atorvastatin 10mg tablet PO SCH (21:49)
[2017-12-08 22:00] VITALS: BP 151/54
[2017-12-09 02:00] VITALS: BP 112/51
[2017-12-09] MEDS: ampicillin/sulbac 3gm/NS 100ml 100 ML IV SCH ×4 (02:32→20:02)
[2017-12-09 05:34] LABS: BASOPHILS % (AUTO) 0.7 % (0-1); EOSINOPHILS # (AUTO) 0.3 X10'3 (0-0.9); EOSINOPHILS % (AUTO) 3.7 % (0-6); HEMATOCRIT 32.6 % (35.0-45.0); HEMOGLOBIN 11.2 g/dl (12.0-16.0); LYMPHOCYTES # (AUTO) 1.2 X10'3 (1.1-4.8); LYMPHOCYTES % (AUTO) 16.7 % (21-51); MEAN CORPUSCULAR HEMOGLOBIN 31.7 PG (27.0-31.0); MEAN CORPUSCULAR HGB CONC 34.3 % (33.0-36.5); MEAN CORPUSCULAR VOLUME 92.6 FL (78-98); MEAN PLATELET VOLUME 8.1 FL (7.4-10.4); MONOCYTES # (AUTO) 0.9 X10'3 (0-0.9); MONOCYTES % (AUTO) 12.3 % (2-12); NEUTROPHILS # (AUTO) 4.7 X10'3 (1.8-7.7); NEUTROPHILS % (AUTO) 66.6 % (42-75); PLATELET COUNT 261 X10'3 (140-440); RED BLOOD COUNT 3.53 X10'6 (4.20-5.60); RED CELL DISTRIBUTION WIDTH 15.2 % (11.5-14.5); WHITE BLOOD COUNT 7.1 X10'3 (4.5-11.0)
[2017-12-09 05:53] LABS: ALANINE AMINOTRANSFERASE 56 U/L (12-78); ALBUMIN 2.6 G/DL (3.4-5.0); ALBUMIN/GLOBULIN RATIO 0.9 (1.1-1.5); ALKALINE PHOSPHATASE 81 IU/L (46-116); ANION GAP 9 (8-16); ASPARTATE AMINO TRANSFERASE 29 U/L (10-37); BILIRUBIN,TOTAL 0.4 MG/DL (0.1-1.0); BLOOD UREA NITROGEN 24 MG/DL (7-18); BUN/CREATININE RATIO 25.3 (6.6-38.0); CALCIUM 8.8 MG/DL (8.5-10.1); CHLORIDE 108 MMOL/L (99-107); CREATININE 0.95 MG/DL (0.40-0.90); GLUCOSE 123 MG/DL (70-104); PREALBUMIN 23.2 MG/DL (19-36); SODIUM 143 MMOL/L (135-145); TOTAL CARBON DIOXIDE 26.1 MMOL/L (24-32); TOTAL PROTEIN 5.6 G/DL (6.4-8.2); eGFR 57 ML/MIN
[2017-12-09] MEDS: levoTHYROXINE 100mcg tablet NG SCH (07:00)
[2017-12-09 07:03] VITALS: BP 109/57
[2017-12-09] MEDS: K and/or MAG REPLACEMENT MC SCH (08:00)
[2017-12-09] MEDS: heparin, porcine 5000 units/ml vial SQ SCH ×2 (08:00→20:03)
[2017-12-09] MEDS: megestrol acetate 400mg/10ml UD oral suspension PO SCH (08:32)
[2017-12-09] MEDS: polyethylene glycol 3350 17gm powd pack PO SCH ×2 (08:32→20:02)
[2017-12-09] MEDS: famotidine 20mg tablet PO SCH (08:33)
[2017-12-09] MEDS: lactobacillus rhamnosus 10,000 MMU CELLS/CAPSULE PO SCH ×2 (08:33→20:03)
[2017-12-09] MEDS: ferrous sulfate 325mg tablet PO SCH (08:33)
[2017-12-09] MEDS: amLODIPine 5mg tablet PO SCH ×2 (08:33→20:04)
[2017-12-09] MEDS: docusate sod 100mg capsule PO SCH ×2 (08:33→20:04)
[2017-12-09] MEDS: clonazePAM 0.5mg tablet NG SCH ×2 (08:33→20:00)
[2017-12-09] MEDS: lamoTRIgine 100mg tablet NG SCH (08:34)
[2017-12-09] MEDS: furosemide 40mg tablet PO SCH (08:34)
[2017-12-09] MEDS: lisinopril 20mg tablet NG SCH (08:34)
[2017-12-09] MEDS: potassium chloride 8mEq ER tablet PO SCH ×3 (08:34→20:04)
[2017-12-09] MEDS: sertraline 25mg tablet NG SCH (08:34)
[2017-12-09] MEDS: benztropine 1mg tablet PO SCH ×3 (08:34→20:04)
[2017-12-09] MEDS: propranolol 10mg tablet NG SCH ×2 (08:34→20:04)
[2017-12-09] MEDS: nystatin 15 GM powder TP SCH ×3 (08:35→20:03)
[2017-12-09] MEDS: LACTOSE-FREE FOOD 237ML (BOOST) PO SCH ×3 (08:36→18:00)
[2017-12-09 11:00] VITALS: BP 127/41
[2017-12-09] MEDS: carbidoba-levodopa 25-100mg tablet NG SCH (12:38)
[2017-12-09 15:00] VITALS: BP 121/69
[2017-12-09 19:00] VITALS: BP 131/90
[2017-12-09] MEDS: atorvastatin 10mg tablet PO SCH (20:04)
[2017-12-09 23:00] VITALS: BP 102/57
[2017-12-10] MEDS: ampicillin/sulbac 3gm/NS 100ml 100 ML IV SCH ×4 (02:16→21:50)
[2017-12-10 03:00] VITALS: BP 124/39
[2017-12-10 06:30] LABS: BASOPHILS # (AUTO) 0.1 X10'3 (0-0.2); BASOPHILS % (AUTO) 0.7 % (0-1); EOSINOPHILS # (AUTO) 0.4 X10'3 (0-0.9); EOSINOPHILS % (AUTO) 4.7 % (0-6); HEMATOCRIT 31.6 % (35.0-45.0); HEMOGLOBIN 10.8 g/dl (12.0-16.0); LYMPHOCYTES # (AUTO) 1.3 X10'3 (1.1-4.8); LYMPHOCYTES % (AUTO) 17.1 % (21-51); MEAN CORPUSCULAR HGB CONC 34.1 % (33.0-36.5); MEAN CORPUSCULAR VOLUME 93.8 FL (78-98); MEAN PLATELET VOLUME 8.2 FL (7.4-10.4); MONOCYTES # (AUTO) 0.9 X10'3 (0-0.9); MONOCYTES % (AUTO) 11.8 % (2-12); NEUTROPHILS # (AUTO) 5.1 X10'3 (1.8-7.7); NEUTROPHILS % (AUTO) 65.7 % (42-75); PLATELET COUNT 241 X10'3 (140-440); RED BLOOD COUNT 3.37 X10'6 (4.20-5.60); WHITE BLOOD COUNT 7.7 X10'3 (4.5-11.0)
[2017-12-10 06:49] VITALS: BP 111/45
[2017-12-10 06:54] LABS: ALANINE AMINOTRANSFERASE 75 U/L (12-78); ALBUMIN 2.6 G/DL (3.4-5.0); ALKALINE PHOSPHATASE 71 IU/L (46-116); ANION GAP 8 (8-16); ASPARTATE AMINO TRANSFERASE 43 U/L (10-37); BILIRUBIN,TOTAL 0.5 MG/DL (0.1-1.0); BLOOD UREA NITROGEN 23 MG/DL (7-18); BUN/CREATININE RATIO 23.7 (6.6-38.0); CALCIUM 8.7 MG/DL (8.5-10.1); CHLORIDE 109 MMOL/L (99-107); CREATININE 0.97 MG/DL (0.40-0.90); GLUCOSE 96 MG/DL (70-104); POTASSIUM 4.4 MMOL/L (3.5-5.1); SODIUM 143 MMOL/L (135-145); TOTAL CARBON DIOXIDE 26.5 MMOL/L (24-32); TOTAL PROTEIN 5.3 G/DL (6.4-8.2); eGFR 56 ML/MIN
[2017-12-10] MEDS: levoTHYROXINE 100mcg tablet NG SCH (07:00)
[2017-12-10] MEDS: nystatin 15 GM powder TP SCH ×3 (08:00→22:15)
[2017-12-10] MEDS: sertraline 25mg tablet NG SCH (08:00)
[2017-12-10] MEDS: K and/or MAG REPLACEMENT MC SCH (08:00)
[2017-12-10] MEDS: megestrol acetate 400mg/10ml UD oral suspension PO SCH (08:00)
[2017-12-10] MEDS: LACTOSE-FREE FOOD 237ML (BOOST) PO SCH ×3 (08:00→18:00)
[2017-12-10] MEDS: docusate sod 100mg capsule PO SCH ×2 (08:37→21:52)
[2017-12-10] MEDS: polyethylene glycol 3350 17gm powd pack PO SCH ×2 (08:37→21:00)
[2017-12-10] MEDS: heparin, porcine 5000 units/ml vial SQ SCH ×2 (08:37→21:51)
[2017-12-10] MEDS: furosemide 40mg tablet PO SCH (08:38)
[2017-12-10] MEDS: lamoTRIgine 100mg tablet NG SCH (08:38)
[2017-12-10] MEDS: potassium chloride 8mEq ER tablet PO SCH ×3 (08:38→21:52)
[2017-12-10] MEDS: lactobacillus rhamnosus 10,000 MMU CELLS/CAPSULE PO SCH ×2 (08:38→21:52)
[2017-12-10] MEDS: ferrous sulfate 325mg tablet PO SCH (08:38)
[2017-12-10] MEDS: amLODIPine 5mg tablet PO SCH ×2 (08:38→21:52)
[2017-12-10] MEDS: lisinopril 20mg tablet NG SCH (08:38)
[2017-12-10] MEDS: benztropine 1mg tablet PO SCH ×3 (08:38→21:52)
[2017-12-10] MEDS: famotidine 20mg tablet PO SCH (08:38)
[2017-12-10] MEDS: carbidoba-levodopa 25-100mg tablet NG SCH (08:38)
[2017-12-10] MEDS: propranolol 10mg tablet NG SCH ×2 (08:39→22:15)
[2017-12-10] MEDS: clonazePAM 0.5mg tablet NG SCH ×2 (08:42→22:15)
[2017-12-10 11:00] VITALS: BP 114/53
[2017-12-10 15:00] VITALS: BP 104/77
[2017-12-10 19:00] VITALS: BP 124/50
[2017-12-10] MEDS: atorvastatin 10mg tablet PO SCH (21:52)
[2017-12-10] MEDS: mag hydrox/Alum hydrox/simeth 30ml oral suspension PO PRN (22:15)
[2017-12-10 23:00] VITALS: BP 123/48
[2017-12-11] MEDS: ampicillin/sulbac 3gm/NS 100ml 100 ML IV SCH ×4 (02:37→20:07)
[2017-12-11 03:00] VITALS: BP 120/43
[2017-12-11 06:00] VITALS: BP 117/43
[2017-12-11 06:06] LABS: BASOPHILS % (AUTO) 0.5 % (0-1); EOSINOPHILS # (AUTO) 0.4 X10'3 (0-0.9); EOSINOPHILS % (AUTO) 4.8 % (0-6); HEMATOCRIT 32.1 % (35.0-45.0); HEMOGLOBIN 11.1 g/dl (12.0-16.0); LYMPHOCYTES # (AUTO) 1.3 X10'3 (1.1-4.8); LYMPHOCYTES % (AUTO) 15.7 % (21-51); MEAN CORPUSCULAR HEMOGLOBIN 32.1 PG (27.0-31.0); MEAN CORPUSCULAR HGB CONC 34.4 % (33.0-36.5); MEAN CORPUSCULAR VOLUME 93.2 FL (78-98); MEAN PLATELET VOLUME 8.2 FL (7.4-10.4); MONOCYTES # (AUTO) 0.8 X10'3 (0-0.9); MONOCYTES % (AUTO) 9.7 % (2-12); NEUTROPHILS # (AUTO) 5.8 X10'3 (1.8-7.7); NEUTROPHILS % (AUTO) 69.3 % (42-75); PLATELET COUNT 224 X10'3 (140-440); RED BLOOD COUNT 3.45 X10'6 (4.20-5.60); RED CELL DISTRIBUTION WIDTH 15.3 % (11.5-14.5); WHITE BLOOD COUNT 8.4 X10'3 (4.5-11.0)
[2017-12-11 06:27] LABS: ALANINE AMINOTRANSFERASE 79 U/L (12-78); ALBUMIN 2.6 G/DL (3.4-5.0); ALBUMIN/GLOBULIN RATIO 0.9 (1.1-1.5); ALKALINE PHOSPHATASE 72 IU/L (46-116); ANION GAP 10 (8-16); ASPARTATE AMINO TRANSFERASE 33 U/L (10-37); BILIRUBIN,TOTAL 0.4 MG/DL (0.1-1.0); BLOOD UREA NITROGEN 21 MG/DL (7-18); BUN/CREATININE RATIO 21.6 (6.6-38.0); CALCIUM 8.8 MG/DL (8.5-10.1); CHLORIDE 108 MMOL/L (99-107); CREATININE 0.97 MG/DL (0.40-0.90); GLUCOSE 95 MG/DL (70-104); POTASSIUM 4.4 MMOL/L (3.5-5.1); SODIUM 143 MMOL/L (135-145); TOTAL CARBON DIOXIDE 25.5 MMOL/L (24-32); TOTAL PROTEIN 5.5 G/DL (6.4-8.2); eGFR 56 ML/MIN
[2017-12-11] MEDS: amLODIPine 5mg tablet PO SCH ×2 (08:23→21:51)
[2017-12-11] MEDS: furosemide 40mg tablet PO SCH (08:25)
[2017-12-11] MEDS: lamoTRIgine 100mg tablet NG SCH (08:26)
[2017-12-11] MEDS: famotidine 20mg tablet PO SCH (08:26)
[2017-12-11] MEDS: potassium chloride 8mEq ER tablet PO SCH ×3 (08:28→21:51)
[2017-12-11] MEDS: docusate sod 100mg capsule PO SCH ×2 (08:28→20:06)
[2017-12-11] MEDS: carbidoba-levodopa 25-100mg tablet NG SCH (08:29)
[2017-12-11] MEDS: clonazePAM 0.5mg tablet NG SCH ×2 (08:30→20:06)
[2017-12-11] MEDS: propranolol 10mg tablet NG SCH ×2 (08:31→20:06)
[2017-12-11] MEDS: benztropine 1mg tablet PO SCH ×3 (08:32→21:51)
[2017-12-11] MEDS: sertraline 25mg tablet NG SCH (08:33)
[2017-12-11] MEDS: ferrous sulfate 325mg tablet PO SCH (08:33)
[2017-12-11] MEDS: lisinopril 20mg tablet NG SCH (08:33)
[2017-12-11] MEDS: lactobacillus rhamnosus 10,000 MMU CELLS/CAPSULE PO SCH ×2 (08:33→20:06)
[2017-12-11] MEDS: nystatin 15 GM powder TP SCH ×3 (08:37→21:00)
[2017-12-11] MEDS: heparin, porcine 5000 units/ml vial SQ SCH ×2 (08:38→20:07)
[2017-12-11] MEDS: K and/or MAG REPLACEMENT MC SCH (08:40)
[2017-12-11] MEDS: levoTHYROXINE 100mcg tablet NG SCH (08:43)
[2017-12-11] MEDS: polyethylene glycol 3350 17gm powd pack PO SCH ×2 (08:44→21:00)
[2017-12-11] MEDS: LACTOSE-FREE FOOD 237ML (BOOST) PO SCH ×3 (08:48→18:00)
[2017-12-11] MEDS: megestrol acetate 400mg/10ml UD oral suspension PO SCH (08:54)
[2017-12-11 11:00] VITALS: BP 124/78
[2017-12-11 16:49] VITALS: BP 131/77
[2017-12-11 19:00] VITALS: BP 113/43
[2017-12-11] MEDS: acetaminophen 325mg tablet PO PRN (20:05)
[2017-12-11] MEDS: atorvastatin 10mg tablet PO SCH (21:51)
[2017-12-11 23:00] VITALS: BP 125/50
[2017-12-12] MEDS: ampicillin/sulbac 3gm/NS 100ml 100 ML IV SCH ×3 (01:56→14:03)
[2017-12-12 03:00] VITALS: BP 135/54
[2017-12-12 06:00] VITALS: BP 133/62
[2017-12-12] MEDS: levoTHYROXINE 100mcg tablet NG SCH (07:00)
[2017-12-12] MEDS: nystatin 15 GM powder TP SCH ×3 (08:00→21:14)
[2017-12-12] MEDS: megestrol acetate 400mg/10ml UD oral suspension PO SCH (08:00)
[2017-12-12] MEDS: polyethylene glycol 3350 17gm powd pack PO SCH ×2 (08:00→19:11)
[2017-12-12] MEDS: docusate sod 100mg capsule PO SCH ×2 (08:00→19:11)
[2017-12-12] MEDS: K and/or MAG REPLACEMENT MC SCH (08:00)
[2017-12-12] MEDS: LACTOSE-FREE FOOD 237ML (BOOST) PO SCH ×3 (08:00→18:00)
[2017-12-12] MEDS: clonazePAM 0.5mg tablet NG SCH ×2 (09:04→21:28)
[2017-12-12] MEDS: amLODIPine 5mg tablet PO SCH ×2 (09:04→21:00)
[2017-12-12] MEDS: heparin, porcine 5000 units/ml vial SQ SCH ×2 (09:04→21:13)
[2017-12-12] MEDS: lactobacillus rhamnosus 10,000 MMU CELLS/CAPSULE PO SCH ×2 (09:04→21:14)
[2017-12-12] MEDS: sertraline 25mg tablet NG SCH (09:04)
[2017-12-12] MEDS: ferrous sulfate 325mg tablet PO SCH (09:05)
[2017-12-12] MEDS: lisinopril 20mg tablet NG SCH (09:05)
[2017-12-12] MEDS: lamoTRIgine 100mg tablet NG SCH (09:05)
[2017-12-12] MEDS: famotidine 20mg tablet PO SCH (09:05)
[2017-12-12] MEDS: furosemide 40mg tablet PO SCH (09:05)
[2017-12-12] MEDS: propranolol 10mg tablet NG SCH ×2 (09:05→20:00)
[2017-12-12] MEDS: benztropine 1mg tablet PO SCH ×3 (09:05→21:13)
[2017-12-12] MEDS: potassium chloride 8mEq ER tablet PO SCH ×3 (09:06→21:14)
[2017-12-12] MEDS: carbidoba-levodopa 25-100mg tablet NG SCH (09:06)
[2017-12-12 11:00] VITALS: BP 109/79
[2017-12-12 15:00] VITALS: BP 125/49
[2017-12-12] MEDS: mag hydrox/Alum hydrox/simeth 30ml oral suspension PO PRN (15:25)
[2017-12-12 19:00] VITALS: BP 124/54
[2017-12-12] MEDS: atorvastatin 10mg tablet PO SCH (21:13)
[2017-12-12] MEDS: acetaminophen 325mg tablet PO PRN (21:17)
[2017-12-12 23:00] VITALS: BP 126/50
[2017-12-13 02:00] VITALS: BP 142/56
[2017-12-13 06:00] VITALS: BP 106/58
[2017-12-13] MEDS: lamoTRIgine 100mg tablet NG SCH (07:52)
[2017-12-13] MEDS: carbidoba-levodopa 25-100mg tablet NG SCH (07:52)
[2017-12-13] MEDS: benztropine 1mg tablet PO SCH ×3 (07:53→21:16)
[2017-12-13] MEDS: clonazePAM 0.5mg tablet NG SCH ×2 (07:53→21:16)
[2017-12-13] MEDS: famotidine 20mg tablet PO SCH (07:54)
[2017-12-13] MEDS: furosemide 40mg tablet PO SCH (07:54)
[2017-12-13] MEDS: levoTHYROXINE 100mcg tablet NG SCH (07:55)
[2017-12-13] MEDS: potassium chloride 8mEq ER tablet PO SCH ×3 (07:55→21:16)
[2017-12-13] MEDS: ferrous sulfate 325mg tablet PO SCH (07:56)
[2017-12-13] MEDS: lisinopril 20mg tablet NG SCH (07:57)
[2017-12-13] MEDS: lactobacillus rhamnosus 10,000 MMU CELLS/CAPSULE PO SCH ×2 (07:57→21:15)
[2017-12-13] MEDS: amLODIPine 5mg tablet PO SCH ×2 (07:57→22:00)
[2017-12-13] MEDS: K and/or MAG REPLACEMENT MC SCH (08:00)
[2017-12-13] MEDS: docusate sod 100mg capsule PO SCH ×2 (08:00→20:00)
[2017-12-13] MEDS: LACTOSE-FREE FOOD 237ML (BOOST) PO SCH ×3 (08:00→18:19)
[2017-12-13] MEDS: nystatin 15 GM powder TP SCH ×3 (08:00→21:16)
[2017-12-13] MEDS: polyethylene glycol 3350 17gm powd pack PO SCH ×2 (08:00→21:00)
[2017-12-13] MEDS: heparin, porcine 5000 units/ml vial SQ SCH ×2 (08:44→21:16)
[2017-12-13 11:00] VITALS: BP 131/42
[2017-12-13] MEDS: megestrol acetate 400mg/10ml UD oral suspension PO SCH (11:00)
[2017-12-13] MEDS: propranolol 10mg tablet NG SCH ×2 (11:00→21:16)
[2017-12-13] MEDS: sertraline 25mg tablet NG SCH (11:00)
[2017-12-13 15:00] VITALS: BP 102/46
[2017-12-13] MEDS: acetaminophen 325mg tablet PO PRN (17:07)
[2017-12-13 19:00] VITALS: BP 140/60
[2017-12-13] MEDS: atorvastatin 10mg tablet PO SCH (21:16)
[2017-12-13 23:00] VITALS: BP 136/55
[2017-12-14 03:00] VITALS: BP 125/48
[2017-12-14 06:00] VITALS: BP 135/57
[2017-12-14] MEDS: levoTHYROXINE 100mcg tablet NG SCH (07:40)
[2017-12-14] MEDS: lamoTRIgine 100mg tablet NG SCH (07:40)
[2017-12-14] MEDS: nystatin 15 GM powder TP SCH ×3 (07:42→21:13)
[2017-12-14] MEDS: K and/or MAG REPLACEMENT MC SCH (08:00)
[2017-12-14] MEDS: clonazePAM 0.5mg tablet NG SCH ×2 (08:00→21:09)
[2017-12-14] MEDS: LACTOSE-FREE FOOD 237ML (BOOST) PO SCH ×3 (08:00→18:00)
[2017-12-14] MEDS: famotidine 20mg tablet PO SCH (08:00)
[2017-12-14] MEDS: carbidoba-levodopa 25-100mg tablet NG SCH (08:00)
[2017-12-14] MEDS: sertraline 25mg tablet NG SCH (08:00)
[2017-12-14] MEDS: docusate sod 100mg capsule PO SCH ×2 (08:00→21:06)
[2017-12-14] MEDS: potassium chloride 8mEq ER tablet PO SCH ×3 (08:00→21:06)
[2017-12-14] MEDS: furosemide 40mg tablet PO SCH (08:00)
[2017-12-14] MEDS: ferrous sulfate 325mg tablet PO SCH (08:00)
[2017-12-14] MEDS: benztropine 1mg tablet PO SCH ×3 (08:00→21:08)
[2017-12-14] MEDS: heparin, porcine 5000 units/ml vial SQ SCH ×2 (08:00→21:12)
[2017-12-14] MEDS: lactobacillus rhamnosus 10,000 MMU CELLS/CAPSULE PO SCH ×2 (08:00→21:12)
[2017-12-14] MEDS: polyethylene glycol 3350 17gm powd pack PO SCH ×2 (08:00→21:12)
[2017-12-14] MEDS: amLODIPine 5mg tablet PO SCH ×2 (08:33→21:08)
[2017-12-14] MEDS: propranolol 10mg tablet NG SCH ×2 (08:34→21:10)
[2017-12-14] MEDS: lisinopril 20mg tablet NG SCH (08:34)
[2017-12-14] MEDS: megestrol acetate 400mg/10ml UD oral suspension PO SCH (10:26)
[2017-12-14 11:00] VITALS: BP 124/49
[2017-12-14 15:00] VITALS: BP 136/49
[2017-12-14 18:00] VITALS: BP 116/46
[2017-12-14] MEDS: atorvastatin 10mg tablet PO SCH (21:09)
[2017-12-14] MEDS: acetaminophen 325mg tablet PO PRN (21:49)
[2017-12-14 22:00] VITALS: BP 147/106
[2017-12-15 02:00] VITALS: BP 138/40
[2017-12-15 05:30] VITALS: BP 134/45
[2017-12-15] MEDS: polyethylene glycol 3350 17gm powd pack PO SCH ×2 (08:00→21:00)
[2017-12-15] MEDS: LACTOSE-FREE FOOD 237ML (BOOST) PO SCH ×3 (08:00→20:52)
[2017-12-15] MEDS: K and/or MAG REPLACEMENT MC SCH (08:00)
[2017-12-15 08:06] LABS: MAGNESIUM 2.7 MG/DL (1.5-2.4); POTASSIUM 4.5 MMOL/L (3.5-5.1)
[2017-12-15] MEDS: carbidoba-levodopa 25-100mg tablet NG SCH (09:40)
[2017-12-15] MEDS: docusate sod 100mg capsule PO SCH ×2 (09:40→20:00)
[2017-12-15] MEDS: ferrous sulfate 325mg tablet PO SCH (09:40)
[2017-12-15] MEDS: lamoTRIgine 100mg tablet NG SCH (09:40)
[2017-12-15] MEDS: amLODIPine 5mg tablet PO SCH ×2 (09:40→20:53)
[2017-12-15] MEDS: benztropine 1mg tablet PO SCH ×3 (09:40→20:54)
[2017-12-15] MEDS: lactobacillus rhamnosus 10,000 MMU CELLS/CAPSULE PO SCH ×2 (09:40→20:54)
[2017-12-15] MEDS: sertraline 25mg tablet NG SCH (09:41)
[2017-12-15] MEDS: potassium chloride 8mEq ER tablet PO SCH ×3 (09:41→20:54)
[2017-12-15] MEDS: lisinopril 20mg tablet NG SCH (09:41)
[2017-12-15] MEDS: furosemide 40mg tablet PO SCH (09:41)
[2017-12-15] MEDS: famotidine 20mg tablet PO SCH (09:41)
[2017-12-15] MEDS: propranolol 10mg tablet NG SCH ×2 (09:41→20:52)
[2017-12-15] MEDS: megestrol acetate 400mg/10ml UD oral suspension PO SCH (09:43)
[2017-12-15] MEDS: nystatin 15 GM powder TP SCH ×3 (09:43→20:55)
[2017-12-15] MEDS: heparin, porcine 5000 units/ml vial SQ SCH ×2 (09:44→20:55)
[2017-12-15] MEDS: levoTHYROXINE 100mcg tablet NG SCH (09:44)
[2017-12-15] MEDS: clonazePAM 0.5mg tablet NG SCH ×2 (10:01→20:54)
[2017-12-15 11:00] VITALS: BP 100/38
[2017-12-15 15:00] VITALS: BP 119/48
[2017-12-15 19:00] VITALS: BP 149/102
[2017-12-15] MEDS: acetaminophen 325mg tablet PO PRN (20:49)
[2017-12-15] MEDS: atorvastatin 10mg tablet PO SCH (20:53)
[2017-12-15 23:00] VITALS: BP 119/83
[2017-12-16 03:00] VITALS: BP 97/38
[2017-12-16 06:00] VITALS: BP 107/44
[2017-12-16] MEDS: K and/or MAG REPLACEMENT MC SCH (06:38)
[2017-12-16] MEDS: benztropine 1mg tablet PO SCH ×3 (07:42→19:14)
[2017-12-16] MEDS: levoTHYROXINE 100mcg tablet NG SCH (07:43)
[2017-12-16] MEDS: lamoTRIgine 100mg tablet NG SCH (07:43)
[2017-12-16] MEDS: lactobacillus rhamnosus 10,000 MMU CELLS/CAPSULE PO SCH ×2 (07:43→19:11)
[2017-12-16] MEDS: carbidoba-levodopa 25-100mg tablet NG SCH (07:43)
[2017-12-16] MEDS: famotidine 20mg tablet PO SCH (07:43)
[2017-12-16] MEDS: clonazePAM 0.5mg tablet NG SCH ×2 (07:45→19:12)
[2017-12-16] MEDS: ferrous sulfate 325mg tablet PO SCH (07:45)
[2017-12-16] MEDS: sertraline 25mg tablet NG SCH (07:45)
[2017-12-16] MEDS: potassium chloride 8mEq ER tablet PO SCH ×3 (07:45→19:12)
[2017-12-16] MEDS: heparin, porcine 5000 units/ml vial SQ SCH ×2 (07:46→19:13)
[2017-12-16] MEDS: nystatin 15 GM powder TP SCH ×3 (07:49→19:21)
[2017-12-16] MEDS: megestrol acetate 400mg/10ml UD oral suspension PO SCH (07:51)
[2017-12-16] MEDS: propranolol 10mg tablet NG SCH ×2 (08:00→19:12)
[2017-12-16] MEDS: lisinopril 20mg tablet NG SCH (08:00)
[2017-12-16] MEDS: LACTOSE-FREE FOOD 237ML (BOOST) PO SCH ×3 (08:00→18:00)
[2017-12-16] MEDS: furosemide 40mg tablet PO SCH (08:00)
[2017-12-16] MEDS: docusate sod 100mg capsule PO SCH ×2 (08:00→20:00)
[2017-12-16] MEDS: amLODIPine 5mg tablet PO SCH ×2 (08:00→19:12)
[2017-12-16] MEDS: polyethylene glycol 3350 17gm powd pack PO SCH ×2 (08:00→21:00)
[2017-12-16 11:00] VITALS: BP 122/56
[2017-12-16 18:00] VITALS: BP 114/81
[2017-12-16] MEDS: atorvastatin 10mg tablet PO SCH (19:11)
[2017-12-16] MEDS: acetaminophen 325mg tablet PO PRN (19:13)
[2017-12-16 22:00] VITALS: BP 105/79
[2017-12-17 06:00] VITALS: BP 116/37
[2017-12-17] MEDS: K and/or MAG REPLACEMENT MC SCH (08:00)
[2017-12-17] MEDS: polyethylene glycol 3350 17gm powd pack PO SCH ×2 (08:16→21:00)
[2017-12-17] MEDS: lamoTRIgine 100mg tablet NG SCH (08:16)
[2017-12-17] MEDS: carbidoba-levodopa 25-100mg tablet NG SCH (08:16)
[2017-12-17] MEDS: furosemide 40mg tablet PO SCH (08:16)
[2017-12-17] MEDS: docusate sod 100mg capsule PO SCH ×2 (08:16→21:40)
[2017-12-17] MEDS: levoTHYROXINE 100mcg tablet NG SCH (08:16)
[2017-12-17] MEDS: sertraline 25mg tablet NG SCH (08:16)
[2017-12-17] MEDS: clonazePAM 0.5mg tablet NG SCH ×2 (08:16→21:41)
[2017-12-17] MEDS: lisinopril 20mg tablet NG SCH (08:16)
[2017-12-17] MEDS: propranolol 10mg tablet NG SCH ×2 (08:16→21:41)
[2017-12-17] MEDS: ferrous sulfate 325mg tablet PO SCH (08:17)
[2017-12-17] MEDS: potassium chloride 8mEq ER tablet PO SCH ×3 (08:17→21:41)
[2017-12-17] MEDS: benztropine 1mg tablet PO SCH ×3 (08:17→21:40)
[2017-12-17] MEDS: lactobacillus rhamnosus 10,000 MMU CELLS/CAPSULE PO SCH ×2 (08:17→21:41)
[2017-12-17] MEDS: famotidine 20mg tablet PO SCH (08:17)
[2017-12-17] MEDS: amLODIPine 5mg tablet PO SCH ×2 (08:17→21:41)
[2017-12-17] MEDS: megestrol acetate 400mg/10ml UD oral suspension PO SCH (08:18)
[2017-12-17] MEDS: nystatin 15 GM powder TP SCH ×3 (08:18→21:00)
[2017-12-17] MEDS: heparin, porcine 5000 units/ml vial SQ SCH ×2 (08:18→20:00)
[2017-12-17] MEDS: LACTOSE-FREE FOOD 237ML (BOOST) PO SCH ×3 (08:22→18:00)
[2017-12-17 08:25] VITALS: BP 120/96
[2017-12-17 10:00] VITALS: BP 136/81
[2017-12-17] MEDS: LORazepam 2 mg/ml vial IV PRN ×2 (12:36→17:59)
[2017-12-17 18:00] VITALS: BP 104/65
[2017-12-17] MEDS: atorvastatin 10mg tablet PO SCH (21:40)
[2017-12-17] MEDS ORDERED: haloperidol lactate 5mg/ml inj IM ONE (22:35)
[2017-12-17] MEDS: acetaminophen 325mg tablet PO PRN (23:15)
[2017-12-18] MEDS: LACTOSE-FREE FOOD 237ML (BOOST) PO SCH ×3 (08:00→18:50)
[2017-12-18] MEDS: polyethylene glycol 3350 17gm powd pack PO SCH ×2 (08:00→21:00)
[2017-12-18] MEDS: K and/or MAG REPLACEMENT MC SCH (08:00)
[2017-12-18] MEDS: heparin, porcine 5000 units/ml vial SQ SCH ×2 (08:00→19:58)
[2017-12-18] MEDS: propranolol 10mg tablet NG SCH ×2 (08:00→19:59)
[2017-12-18] MEDS: docusate sod 100mg capsule PO SCH ×2 (08:00→20:00)
[2017-12-18 09:01] VITALS: BP 110/40
[2017-12-18] MEDS: ferrous sulfate 325mg tablet PO SCH (09:51)
[2017-12-18] MEDS: famotidine 20mg tablet PO SCH (09:51)
[2017-12-18] MEDS: lactobacillus rhamnosus 10,000 MMU CELLS/CAPSULE PO SCH ×2 (09:51→19:53)
[2017-12-18] MEDS: lisinopril 20mg tablet NG SCH (09:51)
[2017-12-18] MEDS: lamoTRIgine 100mg tablet NG SCH (09:51)
[2017-12-18] MEDS: levoTHYROXINE 100mcg tablet NG SCH (09:51)
[2017-12-18] MEDS: clonazePAM 0.5mg tablet NG SCH (09:51)
[2017-12-18] MEDS: furosemide 40mg tablet PO SCH (09:51)
[2017-12-18] MEDS: benztropine 1mg tablet PO SCH ×3 (09:51→20:04)
[2017-12-18] MEDS: potassium chloride 8mEq ER tablet PO SCH ×3 (09:52→20:04)
[2017-12-18] MEDS: amLODIPine 5mg tablet PO SCH ×2 (09:52→20:06)
[2017-12-18] MEDS: carbidoba-levodopa 25-100mg tablet NG SCH (09:52)
[2017-12-18] MEDS: sertraline 25mg tablet NG SCH (09:52)
[2017-12-18] MEDS: megestrol acetate 400mg/10ml UD oral suspension PO SCH (10:02)
[2017-12-18] MEDS: nystatin 15 GM powder TP SCH ×3 (10:07→20:07)
[2017-12-18] MEDS ORDERED: diphenhydrAMINE 25mg capsule PO ONE (10:30)
[2017-12-18 11:00] VITALS: BP 129/78
[2017-12-18] MEDS: LORazepam 2 mg/ml vial IV PRN (11:20)
[2017-12-18] MEDS ORDERED: clonazePAM 1mg tablet PO ONE (12:30)
[2017-12-18 13:21] LABS: BASOPHILS % (AUTO) 0.3 % (0-1); EOSINOPHILS # (AUTO) 0.5 X10'3 (0-0.9); EOSINOPHILS % (AUTO) 8.3 % (0-6); HEMATOCRIT 33.4 % (35.0-45.0); HEMOGLOBIN 11.4 g/dl (12.0-16.0); LYMPHOCYTES # (AUTO) 0.7 X10'3 (1.1-4.8); LYMPHOCYTES % (AUTO) 11.2 % (21-51); MEAN CORPUSCULAR HEMOGLOBIN 31.9 PG (27.0-31.0); MEAN CORPUSCULAR HGB CONC 34.1 % (33.0-36.5); MEAN CORPUSCULAR VOLUME 93.6 FL (78-98); MEAN PLATELET VOLUME 7.9 FL (7.4-10.4); MONOCYTES # (AUTO) 0.5 X10'3 (0-0.9); MONOCYTES % (AUTO) 8.9 % (2-12); NEUTROPHILS # (AUTO) 4.3 X10'3 (1.8-7.7); NEUTROPHILS % (AUTO) 71.3 % (42-75); PLATELET COUNT 256 X10'3 (140-440); RED BLOOD COUNT 3.57 X10'6 (4.20-5.60); RED CELL DISTRIBUTION WIDTH 15.2 % (11.5-14.5); WHITE BLOOD COUNT 6.1 X10'3 (4.5-11.0)
[2017-12-18 14:02] LABS: ALANINE AMINOTRANSFERASE 22 U/L (12-78); ALBUMIN 3.2 G/DL (3.4-5.0); ALBUMIN/GLOBULIN RATIO 1.1 (1.1-1.5); ALKALINE PHOSPHATASE 82 IU/L (46-116); ANION GAP 8 (8-16); ASPARTATE AMINO TRANSFERASE 18 U/L (10-37); BILIRUBIN,TOTAL 0.5 MG/DL (0.1-1.0); BLOOD UREA NITROGEN 28 MG/DL (7-18); BUN/CREATININE RATIO 21.9 (6.6-38.0); CALCIUM 9.9 MG/DL (8.5-10.1); CHLORIDE 106 MMOL/L (99-107); CREATININE 1.28 MG/DL (0.40-0.90); GLUCOSE 97 MG/DL (70-104); POTASSIUM 4.6 MMOL/L (3.5-5.1); SODIUM 139 MMOL/L (135-145); TOTAL PROTEIN 6.2 G/DL (6.4-8.2); eGFR 41 ML/MIN
[2017-12-18 16:00] VITALS: BP 115/42
[2017-12-18] MEDS: clonazePAM 1mg tablet NG SCH (19:54)
[2017-12-18] MEDS: temazepam 15mg capsule PO PRN (19:56)
[2017-12-18] MEDS: acetaminophen 325mg tablet PO PRN (19:57)
[2017-12-18] MEDS: atorvastatin 10mg tablet PO SCH (20:04)
[2017-12-18 22:00] VITALS: BP 99/36
[2017-12-19 07:01] VITALS: BP 99/41
[2017-12-19] MEDS: polyethylene glycol 3350 17gm powd pack PO SCH ×2 (08:00→20:12)
[2017-12-19] MEDS: K and/or MAG REPLACEMENT MC SCH (08:00)
[2017-12-19] MEDS: nystatin 15 GM powder TP SCH ×3 (08:08→20:13)
[2017-12-19] MEDS: levoTHYROXINE 100mcg tablet NG SCH (08:08)
[2017-12-19] MEDS: docusate sod 100mg capsule PO SCH ×2 (08:08→20:12)
[2017-12-19] MEDS: clonazePAM 1mg tablet NG SCH (08:08)
[2017-12-19] MEDS: lactobacillus rhamnosus 10,000 MMU CELLS/CAPSULE PO SCH ×2 (08:08→20:13)
[2017-12-19] MEDS: sertraline 25mg tablet NG SCH (08:08)
[2017-12-19] MEDS: famotidine 20mg tablet PO SCH (08:08)
[2017-12-19] MEDS: benztropine 1mg tablet PO SCH ×3 (08:09→20:13)
[2017-12-19] MEDS: potassium chloride 8mEq ER tablet PO SCH ×3 (08:09→20:13)
[2017-12-19] MEDS: heparin, porcine 5000 units/ml vial SQ SCH ×2 (08:09→20:12)
[2017-12-19] MEDS: lamoTRIgine 100mg tablet NG SCH (08:09)
[2017-12-19] MEDS: ferrous sulfate 325mg tablet PO SCH (08:09)
[2017-12-19] MEDS: carbidoba-levodopa 25-100mg tablet NG SCH (08:09)
[2017-12-19] MEDS: LACTOSE-FREE FOOD 237ML (BOOST) PO SCH ×3 (08:09→19:03)
[2017-12-19] MEDS: propranolol 10mg tablet NG SCH (09:04)
[2017-12-19] MEDS: amLODIPine 5mg tablet PO SCH (09:05)
[2017-12-19] MEDS: furosemide 40mg tablet PO SCH (09:05)
[2017-12-19] MEDS: lisinopril 20mg tablet NG SCH (09:05)
[2017-12-19] MEDS: megestrol acetate 400mg/10ml UD oral suspension PO SCH (09:08)
[2017-12-19 11:42] VITALS: BP 109/41
[2017-12-19 18:00] VITALS: BP 135/43
[2017-12-19] MEDS: LORazepam 2 mg/ml vial IV PRN (19:03)
[2017-12-19] MEDS: propranolol 10mg tablet PO SCH (20:13)
[2017-12-19] MEDS: atorvastatin 10mg tablet PO SCH (20:13)
[2017-12-19] MEDS: clonazePAM 1mg tablet PO SCH (20:13)
[2017-12-19] MEDS: temazepam 15mg capsule PO PRN (22:48)
[2017-12-20 06:00] VITALS: BP 117/77
[2017-12-20 06:11] LABS: PREALBUMIN 37.1 MG/DL (19-36)
[2017-12-20] MEDS: sertraline 25mg tablet PO SCH (07:19)
[2017-12-20] MEDS: carbidoba-levodopa 25-100mg tablet PO SCH (07:20)
[2017-12-20] MEDS: clonazePAM 1mg tablet PO SCH ×2 (07:21→20:54)
[2017-12-20] MEDS: megestrol acetate 400mg/10ml UD oral suspension PO SCH (07:21)
[2017-12-20] MEDS: benztropine 1mg tablet PO SCH ×3 (07:22→20:54)
[2017-12-20] MEDS: levoTHYROXINE 100mcg tablet PO SCH (07:22)
[2017-12-20] MEDS: lamoTRIgine 100mg tablet PO SCH (07:23)
[2017-12-20] MEDS: potassium chloride 8mEq ER tablet PO SCH ×3 (07:23→20:54)
[2017-12-20] MEDS: propranolol 10mg tablet PO SCH ×2 (07:23→20:54)
[2017-12-20] MEDS: furosemide 40mg tablet PO SCH (07:24)
[2017-12-20] MEDS: lactobacillus rhamnosus 10,000 MMU CELLS/CAPSULE PO SCH ×2 (07:24→20:54)
[2017-12-20] MEDS: ferrous sulfate 325mg tablet PO SCH (07:25)
[2017-12-20] MEDS: famotidine 20mg tablet PO SCH (07:25)
[2017-12-20] MEDS: lisinopril 20mg tablet PO SCH (07:25)
[2017-12-20] MEDS: docusate sod 100mg capsule PO SCH ×2 (07:25→20:00)
[2017-12-20] MEDS: amLODIPine 5mg tablet PO SCH (07:26)
[2017-12-20] MEDS: polyethylene glycol 3350 17gm powd pack PO SCH ×2 (07:27→20:54)
[2017-12-20] MEDS: nystatin 15 GM powder TP SCH ×3 (07:27→20:55)
[2017-12-20] MEDS: heparin, porcine 5000 units/ml vial SQ SCH ×2 (07:29→20:55)
[2017-12-20] MEDS: acetaminophen 325mg tablet PO PRN (07:32)
[2017-12-20] MEDS: K and/or MAG REPLACEMENT MC SCH (07:36)
[2017-12-20 08:32] LABS: ALANINE AMINOTRANSFERASE 50 U/L (12-78); ALBUMIN 3.3 G/DL (3.4-5.0); ALKALINE PHOSPHATASE 83 IU/L (46-116); ANION GAP 10 (8-16); ASPARTATE AMINO TRANSFERASE 22 U/L (10-37); BILIRUBIN,TOTAL 0.5 MG/DL (0.1-1.0); BLOOD UREA NITROGEN 27 MG/DL (7-18); BUN/CREATININE RATIO 22.5 (6.6-38.0); CHLORIDE 105 MMOL/L (99-107); GLUCOSE 88 MG/DL (70-104); POTASSIUM 4.8 MMOL/L (3.5-5.1); SODIUM 140 MMOL/L (135-145); TOTAL CARBON DIOXIDE 25.4 MMOL/L (24-32); TOTAL PROTEIN 6.5 G/DL (6.4-8.2); eGFR 44 ML/MIN
[2017-12-20] MEDS: LACTOSE-FREE FOOD 237ML (BOOST) PO SCH ×3 (08:42→18:00)
[2017-12-20 10:00] VITALS: BP 102/73
[2017-12-20 18:00] VITALS: BP 128/46
[2017-12-20] MEDS: atorvastatin 10mg tablet PO SCH (20:54)
[2017-12-20] MEDS: temazepam 15mg capsule PO PRN (20:54)
[2017-12-20 22:00] VITALS: BP 117/74
[2017-12-21 06:00] VITALS: BP 126/49
[2017-12-21] MEDS: propranolol 10mg tablet PO SCH ×2 (08:00→20:00)
[2017-12-21] MEDS: K and/or MAG REPLACEMENT MC SCH (08:00)
[2017-12-21] MEDS: polyethylene glycol 3350 17gm powd pack PO SCH ×2 (08:00→20:39)
[2017-12-21] MEDS: furosemide 40mg tablet PO SCH (08:18)
[2017-12-21] MEDS: clonazePAM 1mg tablet PO SCH ×2 (08:18→20:40)
[2017-12-21] MEDS: amLODIPine 5mg tablet PO SCH (08:18)
[2017-12-21] MEDS: lactobacillus rhamnosus 10,000 MMU CELLS/CAPSULE PO SCH ×2 (08:18→20:40)
[2017-12-21] MEDS: sertraline 25mg tablet PO SCH (08:18)
[2017-12-21] MEDS: benztropine 1mg tablet PO SCH ×3 (08:19→20:40)
[2017-12-21] MEDS: famotidine 20mg tablet PO SCH (08:19)
[2017-12-21] MEDS: ferrous sulfate 325mg tablet PO SCH (08:19)
[2017-12-21] MEDS: lamoTRIgine 100mg tablet PO SCH (08:19)
[2017-12-21] MEDS: nystatin 15 GM powder TP SCH ×3 (08:20→20:40)
[2017-12-21] MEDS: LACTOSE-FREE FOOD 237ML (BOOST) PO SCH ×3 (08:20→20:40)
[2017-12-21] MEDS: potassium chloride 8mEq ER tablet PO SCH ×3 (08:20→20:40)
[2017-12-21] MEDS: megestrol acetate 400mg/10ml UD oral suspension PO SCH (08:20)
[2017-12-21] MEDS: docusate sod 100mg capsule PO SCH ×2 (08:20→20:00)
[2017-12-21] MEDS: carbidoba-levodopa 25-100mg tablet PO SCH (08:20)
[2017-12-21] MEDS: lisinopril 20mg tablet PO SCH (08:20)
[2017-12-21] MEDS: heparin, porcine 5000 units/ml vial SQ SCH ×2 (08:22→20:39)
[2017-12-21] MEDS: levoTHYROXINE 100mcg tablet PO SCH (08:25)
[2017-12-21 10:00] VITALS: BP 89/50
[2017-12-21 16:39] VITALS: BP 116/49
[2017-12-21 18:00] VITALS: BP 111/44
[2017-12-21] MEDS: atorvastatin 10mg tablet PO SCH (20:39)
[2017-12-21] MEDS: temazepam 15mg capsule PO PRN (20:40)
[2017-12-21 22:00] VITALS: BP 116/43
[2017-12-22 06:00] VITALS: BP 114/72
[2017-12-22 06:48] LABS: BASOPHILS # (AUTO) 0.1 X10'3 (0-0.2); BASOPHILS % (AUTO) 0.9 % (0-1); EOSINOPHILS # (AUTO) 0.5 X10'3 (0-0.9); HEMATOCRIT 30.4 % (35.0-45.0); HEMOGLOBIN 10.4 g/dl (12.0-16.0); LYMPHOCYTES # (AUTO) 1.1 X10'3 (1.1-4.8); LYMPHOCYTES % (AUTO) 19.2 % (21-51); MEAN CORPUSCULAR HEMOGLOBIN 31.9 PG (27.0-31.0); MEAN CORPUSCULAR HGB CONC 34.3 % (33.0-36.5); MEAN CORPUSCULAR VOLUME 93.1 FL (78-98); MEAN PLATELET VOLUME 8.1 FL (7.4-10.4); MONOCYTES # (AUTO) 0.6 X10'3 (0-0.9); MONOCYTES % (AUTO) 10.4 % (2-12); NEUTROPHILS # (AUTO) 3.7 X10'3 (1.8-7.7); NEUTROPHILS % (AUTO) 61.5 % (42-75); PLATELET COUNT 249 X10'3 (140-440); RED BLOOD COUNT 3.27 X10'6 (4.20-5.60)
[2017-12-22 07:15] LABS: ALANINE AMINOTRANSFERASE 42 U/L (12-78); ALBUMIN 2.9 G/DL (3.4-5.0); ALKALINE PHOSPHATASE 73 IU/L (46-116); ANION GAP 8 (8-16); ASPARTATE AMINO TRANSFERASE 12 U/L (10-37); BILIRUBIN,TOTAL 0.4 MG/DL (0.1-1.0); BLOOD UREA NITROGEN 27 MG/DL (7-18); BUN/CREATININE RATIO 22.3 (6.6-38.0); CALCIUM 9.6 MG/DL (8.5-10.1); CHLORIDE 109 MMOL/L (99-107); CREATININE 1.21 MG/DL (0.40-0.90); GLUCOSE 92 MG/DL (70-104); POTASSIUM 4.9 MMOL/L (3.5-5.1); SODIUM 141 MMOL/L (135-145); TOTAL CARBON DIOXIDE 24.1 MMOL/L (24-32); TOTAL PROTEIN 5.8 G/DL (6.4-8.2); eGFR 43 ML/MIN
[2017-12-22] MEDS: polyethylene glycol 3350 17gm powd pack PO SCH ×2 (08:00→20:14)
[2017-12-22] MEDS: lactobacillus rhamnosus 10,000 MMU CELLS/CAPSULE PO SCH ×2 (08:00→20:15)
[2017-12-22] MEDS: megestrol acetate 400mg/10ml UD oral suspension PO SCH (08:00)
[2017-12-22] MEDS: K and/or MAG REPLACEMENT MC SCH (08:00)
[2017-12-22] MEDS: propranolol 10mg tablet PO SCH ×2 (08:00→10:14)
[2017-12-22] MEDS: amLODIPine 5mg tablet PO SCH ×2 (08:00→10:14)
[2017-12-22] MEDS: potassium chloride 8mEq ER tablet PO SCH ×3 (08:42→20:17)
[2017-12-22] MEDS: ferrous sulfate 325mg tablet PO SCH (08:42)
[2017-12-22] MEDS: sertraline 25mg tablet PO SCH (08:42)
[2017-12-22] MEDS: carbidoba-levodopa 25-100mg tablet PO SCH (08:42)
[2017-12-22] MEDS: benztropine 1mg tablet PO SCH ×3 (08:42→20:17)
[2017-12-22] MEDS: lamoTRIgine 100mg tablet PO SCH (08:42)
[2017-12-22] MEDS: clonazePAM 1mg tablet PO SCH ×2 (08:42→20:16)
[2017-12-22] MEDS: docusate sod 100mg capsule PO SCH ×2 (08:42→20:16)
[2017-12-22] MEDS: furosemide 40mg tablet PO SCH (08:42)
[2017-12-22] MEDS: lisinopril 20mg tablet PO SCH (08:42)
[2017-12-22] MEDS: famotidine 20mg tablet PO SCH (08:42)
[2017-12-22] MEDS: levoTHYROXINE 100mcg tablet PO SCH (08:42)
[2017-12-22] MEDS: heparin, porcine 5000 units/ml vial SQ SCH ×2 (08:43→20:15)
[2017-12-22] MEDS: LACTOSE-FREE FOOD 237ML (BOOST) PO SCH ×3 (08:43→18:00)
[2017-12-22] MEDS: nystatin 15 GM powder TP SCH ×3 (08:43→20:18)
[2017-12-22 10:00] VITALS: BP 229/197
[2017-12-22] MEDS: acetaminophen 325mg tablet PO PRN ×2 (10:14→20:15)
[2017-12-22 10:30] VITALS: BP 164/86
[2017-12-22] MEDS: LORazepam 2 mg/ml vial IV PRN ×2 (10:51→17:37)
[2017-12-22 15:30] VITALS: BP 120/40
[2017-12-22 18:00] VITALS: BP 106/72
[2017-12-22] MEDS: atorvastatin 10mg tablet PO SCH (20:17)
[2017-12-22] MEDS: temazepam 15mg capsule PO PRN (21:38)
[2017-12-22 22:00] VITALS: BP 12/90
[2017-12-23 05:00] VITALS: BP 117/43
[2017-12-23] MEDS: polyethylene glycol 3350 17gm powd pack PO SCH ×2 (08:00→20:52)
[2017-12-23] MEDS: K and/or MAG REPLACEMENT MC SCH (08:00)
[2017-12-23] MEDS: megestrol acetate 400mg/10ml UD oral suspension PO SCH (08:00)
[2017-12-23] MEDS: LACTOSE-FREE FOOD 237ML (BOOST) PO SCH ×3 (08:40→18:00)
[2017-12-23] MEDS: benztropine 1mg tablet PO SCH ×3 (08:43→20:53)
[2017-12-23] MEDS: docusate sod 100mg capsule PO SCH ×2 (08:43→20:52)
[2017-12-23] MEDS: levoTHYROXINE 100mcg tablet PO SCH (08:43)
[2017-12-23] MEDS: ferrous sulfate 325mg tablet PO SCH (08:44)
[2017-12-23] MEDS: propranolol 10mg tablet PO SCH ×2 (08:44→20:53)
[2017-12-23] MEDS: lamoTRIgine 100mg tablet PO SCH (08:44)
[2017-12-23] MEDS: clonazePAM 1mg tablet PO SCH ×2 (08:44→20:52)
[2017-12-23] MEDS: potassium chloride 8mEq ER tablet PO SCH ×3 (08:44→20:53)
[2017-12-23] MEDS: lactobacillus rhamnosus 10,000 MMU CELLS/CAPSULE PO SCH ×2 (08:44→20:52)
[2017-12-23] MEDS: nystatin 15 GM powder TP SCH ×3 (08:45→21:00)
[2017-12-23] MEDS: famotidine 20mg tablet PO SCH (08:45)
[2017-12-23] MEDS: sertraline 25mg tablet PO SCH (08:45)
[2017-12-23] MEDS: furosemide 40mg tablet PO SCH (08:45)
[2017-12-23] MEDS: lisinopril 20mg tablet PO SCH (08:46)
[2017-12-23] MEDS: heparin, porcine 5000 units/ml vial SQ SCH ×2 (08:46→20:54)
[2017-12-23] MEDS: carbidoba-levodopa 25-100mg tablet PO SCH (08:48)
[2017-12-23 10:00] VITALS: BP 117/73
[2017-12-23] MEDS: LORazepam 2 mg/ml vial IV PRN ×2 (10:57→17:36)
[2017-12-23 15:30] VITALS: BP 123/71
[2017-12-23 18:00] VITALS: BP 149/65
[2017-12-23] MEDS: atorvastatin 10mg tablet PO SCH (20:52)
[2017-12-23] MEDS: temazepam 15mg capsule PO PRN (20:54)
[2017-12-23 22:00] VITALS: BP 130/51
[2017-12-24 05:00] VITALS: BP 120/37
[2017-12-24 07:42] LABS: BASOPHILS % (AUTO) 0.6 % (0-1); EOSINOPHILS # (AUTO) 0.4 X10'3 (0-0.9); EOSINOPHILS % (AUTO) 6.3 % (0-6); HEMATOCRIT 31.7 % (35.0-45.0); HEMOGLOBIN 10.7 g/dl (12.0-16.0); LYMPHOCYTES # (AUTO) 1.1 X10'3 (1.1-4.8); LYMPHOCYTES % (AUTO) 17.3 % (21-51); MEAN CORPUSCULAR HEMOGLOBIN 31.9 PG (27.0-31.0); MEAN CORPUSCULAR HGB CONC 33.9 % (33.0-36.5); MEAN CORPUSCULAR VOLUME 94.1 FL (78-98); MEAN PLATELET VOLUME 8.3 FL (7.4-10.4); MONOCYTES # (AUTO) 0.7 X10'3 (0-0.9); MONOCYTES % (AUTO) 10.7 % (2-12); NEUTROPHILS % (AUTO) 65.1 % (42-75); PLATELET COUNT 248 X10'3 (140-440); RED BLOOD COUNT 3.37 X10'6 (4.20-5.60); WHITE BLOOD COUNT 6.2 X10'3 (4.5-11.0)
[2017-12-24 07:56] LABS: ALANINE AMINOTRANSFERASE 40 U/L (12-78); ALBUMIN 3.1 G/DL (3.4-5.0); ALBUMIN/GLOBULIN RATIO 1.1 (1.1-1.5); ALKALINE PHOSPHATASE 80 IU/L (46-116); ANION GAP 6 (8-16); ASPARTATE AMINO TRANSFERASE 14 U/L (10-37); BILIRUBIN,TOTAL 0.4 MG/DL (0.1-1.0); BLOOD UREA NITROGEN 24 MG/DL (7-18); BUN/CREATININE RATIO 20.7 (6.6-38.0); CALCIUM 9.6 MG/DL (8.5-10.1); CHLORIDE 108 MMOL/L (99-107); CREATININE 1.16 MG/DL (0.40-0.90); GLUCOSE 92 MG/DL (70-104); SODIUM 141 MMOL/L (135-145); TOTAL CARBON DIOXIDE 26.9 MMOL/L (24-32); eGFR 46 ML/MIN
[2017-12-24] MEDS: potassium chloride 8mEq ER tablet PO SCH ×3 (08:00→19:39)
[2017-12-24] MEDS: K and/or MAG REPLACEMENT MC SCH (08:00)
[2017-12-24] MEDS: docusate sod 100mg capsule PO SCH ×2 (08:00→19:25)
[2017-12-24] MEDS: polyethylene glycol 3350 17gm powd pack PO SCH ×2 (08:00→19:39)
[2017-12-24] MEDS: megestrol acetate 400mg/10ml UD oral suspension PO SCH (08:00)
[2017-12-24] MEDS: carbidoba-levodopa 25-100mg tablet PO SCH (08:35)
[2017-12-24] MEDS: lisinopril 20mg tablet PO SCH (08:35)
[2017-12-24] MEDS: benztropine 1mg tablet PO SCH ×3 (08:35→20:27)
[2017-12-24] MEDS: lamoTRIgine 100mg tablet PO SCH (08:35)
[2017-12-24] MEDS: amLODIPine 5mg tablet PO SCH (08:35)
[2017-12-24] MEDS: clonazePAM 1mg tablet PO SCH ×2 (08:35→19:21)
[2017-12-24] MEDS: ferrous sulfate 325mg tablet PO SCH (08:35)
[2017-12-24] MEDS: propranolol 10mg tablet PO SCH ×2 (08:35→19:26)
[2017-12-24] MEDS: furosemide 40mg tablet PO SCH (08:35)
[2017-12-24] MEDS: famotidine 20mg tablet PO SCH (08:35)
[2017-12-24] MEDS: lactobacillus rhamnosus 10,000 MMU CELLS/CAPSULE PO SCH ×2 (08:35→19:21)
[2017-12-24] MEDS: heparin, porcine 5000 units/ml vial SQ SCH ×2 (08:35→20:27)
[2017-12-24] MEDS: sertraline 25mg tablet PO SCH (08:35)
[2017-12-24] MEDS: LACTOSE-FREE FOOD 237ML (BOOST) PO SCH ×3 (08:36→18:00)
[2017-12-24] MEDS: levoTHYROXINE 100mcg tablet PO SCH (08:47)
[2017-12-24] MEDS: nystatin 15 GM powder TP SCH ×3 (08:47→20:28)
[2017-12-24 10:00] VITALS: BP 119/66
[2017-12-24] MEDS: LORazepam 2 mg/ml vial IV PRN ×2 (12:54→19:23)
[2017-12-24 18:00] VITALS: BP 105/37
[2017-12-24] MEDS ORDERED: haloperidol lactate 5mg/ml inj IM ONE (20:15)
[2017-12-24] MEDS: atorvastatin 10mg tablet PO SCH (20:27)
[2017-12-24] MEDS: temazepam 15mg capsule PO PRN (20:27)
[2017-12-24] MEDS: acetaminophen 325mg tablet PO PRN (21:24)
[2017-12-24 22:00] VITALS: BP 103/31
[2017-12-25] MEDS: polyethylene glycol 3350 17gm powd pack PO SCH ×2 (08:00→21:00)
[2017-12-25] MEDS: megestrol acetate 400mg/10ml UD oral suspension PO SCH (08:00)
[2017-12-25] MEDS: docusate sod 100mg capsule PO SCH ×2 (08:00→20:00)
[2017-12-25] MEDS: nystatin 15 GM powder TP SCH ×3 (08:00→20:13)
[2017-12-25] MEDS: K and/or MAG REPLACEMENT MC SCH (08:00)
[2017-12-25] MEDS: propranolol 10mg tablet PO SCH ×2 (09:30→20:00)
[2017-12-25] MEDS: levoTHYROXINE 100mcg tablet PO SCH (09:31)
[2017-12-25] MEDS: lisinopril 20mg tablet PO SCH (09:31)
[2017-12-25] MEDS: carbidoba-levodopa 25-100mg tablet PO SCH (09:31)
[2017-12-25] MEDS: lamoTRIgine 100mg tablet PO SCH (09:31)
[2017-12-25] MEDS: amLODIPine 5mg tablet PO SCH (09:31)
[2017-12-25] MEDS: famotidine 20mg tablet PO SCH (09:31)
[2017-12-25] MEDS: potassium chloride 8mEq ER tablet PO SCH ×3 (09:31→20:11)
[2017-12-25] MEDS: sertraline 25mg tablet PO SCH (09:31)
[2017-12-25] MEDS: benztropine 1mg tablet PO SCH ×3 (09:31→20:12)
[2017-12-25] MEDS: furosemide 40mg tablet PO SCH (09:32)
[2017-12-25] MEDS: clonazePAM 1mg tablet PO SCH ×2 (09:32→20:11)
[2017-12-25] MEDS: ferrous sulfate 325mg tablet PO SCH (09:32)
[2017-12-25] MEDS: lactobacillus rhamnosus 10,000 MMU CELLS/CAPSULE PO SCH ×2 (09:32→20:13)
[2017-12-25] MEDS: LACTOSE-FREE FOOD 237ML (BOOST) PO SCH ×3 (09:34→18:00)
[2017-12-25] MEDS: heparin, porcine 5000 units/ml vial SQ SCH ×2 (09:35→20:14)
[2017-12-25 10:00] VITALS: BP 103/51
[2017-12-25] MEDS: LORazepam 2 mg/ml vial IV PRN ×2 (11:54→21:48)
[2017-12-25 18:30] VITALS: BP 121/50
[2017-12-25] MEDS: acetaminophen 325mg tablet PO PRN (20:12)
[2017-12-25] MEDS: atorvastatin 10mg tablet PO SCH (20:12)
[2017-12-25] MEDS: temazepam 15mg capsule PO PRN (21:02)
[2017-12-25 22:00] VITALS: BP 123/33
[2017-12-26 06:00] VITALS: BP 114/45
[2017-12-26] MEDS: K and/or MAG REPLACEMENT MC SCH (08:00)
[2017-12-26] MEDS: levoTHYROXINE 100mcg tablet PO SCH (08:21)
[2017-12-26] MEDS: benztropine 1mg tablet PO SCH ×3 (08:21→19:30)
[2017-12-26] MEDS: amLODIPine 5mg tablet PO SCH (08:21)
[2017-12-26] MEDS: potassium chloride 8mEq ER tablet PO SCH ×3 (08:21→21:00)
[2017-12-26] MEDS: lactobacillus rhamnosus 10,000 MMU CELLS/CAPSULE PO SCH ×2 (08:21→19:31)
[2017-12-26] MEDS: lamoTRIgine 100mg tablet PO SCH (08:21)
[2017-12-26] MEDS: carbidoba-levodopa 25-100mg tablet PO SCH (08:21)
[2017-12-26] MEDS: megestrol acetate 400mg/10ml UD oral suspension PO SCH (08:21)
[2017-12-26] MEDS: lisinopril 20mg tablet PO SCH (08:21)
[2017-12-26] MEDS: sertraline 25mg tablet PO SCH (08:21)
[2017-12-26] MEDS: propranolol 10mg tablet PO SCH ×2 (08:22→19:30)
[2017-12-26] MEDS: ferrous sulfate 325mg tablet PO SCH (08:22)
[2017-12-26] MEDS: polyethylene glycol 3350 17gm powd pack PO SCH ×2 (08:22→21:00)
[2017-12-26] MEDS: heparin, porcine 5000 units/ml vial SQ SCH ×2 (08:22→19:31)
[2017-12-26] MEDS: clonazePAM 1mg tablet PO SCH ×2 (08:22→19:31)
[2017-12-26] MEDS: docusate sod 100mg capsule PO SCH ×2 (08:22→19:29)
[2017-12-26] MEDS: famotidine 20mg tablet PO SCH (08:22)
[2017-12-26] MEDS: furosemide 40mg tablet PO SCH (08:22)
[2017-12-26] MEDS: nystatin 15 GM powder TP SCH ×3 (08:23→19:46)
[2017-12-26] MEDS: LACTOSE-FREE FOOD 237ML (BOOST) PO SCH ×3 (08:31→18:00)
[2017-12-26 10:00] VITALS: BP 122/61
[2017-12-26] MEDS: LORazepam 2 mg/ml vial IV PRN (10:10)
[2017-12-26 18:00] VITALS: BP 151/97
[2017-12-26] MEDS: atorvastatin 10mg tablet PO SCH (19:31)
[2017-12-26 20:00] VITALS: BP 122/79
[2017-12-26] MEDS: temazepam 15mg capsule PO PRN (21:09)
[2017-12-26 22:00] VITALS: BP 109/60
[2017-12-27 06:00] VITALS: BP 130/45
[2017-12-27] MEDS: K and/or MAG REPLACEMENT MC SCH (07:51)
[2017-12-27] MEDS: LACTOSE-FREE FOOD 237ML (BOOST) PO SCH ×3 (07:52→18:00)
[2017-12-27] MEDS: docusate sod 100mg capsule PO SCH ×2 (07:53→20:31)
[2017-12-27] MEDS: amLODIPine 5mg tablet PO SCH (07:53)
[2017-12-27] MEDS: propranolol 10mg tablet PO SCH ×2 (07:54→20:31)
[2017-12-27] MEDS: potassium chloride 8mEq ER tablet PO SCH ×3 (07:54→20:31)
[2017-12-27] MEDS: polyethylene glycol 3350 17gm powd pack PO SCH ×2 (07:55→20:31)
[2017-12-27] MEDS: furosemide 40mg tablet PO SCH (07:55)
[2017-12-27] MEDS: lisinopril 20mg tablet PO SCH (07:55)
[2017-12-27] MEDS: megestrol acetate 400mg/10ml UD oral suspension PO SCH (08:00)
[2017-12-27] MEDS: sertraline 25mg tablet PO SCH (08:04)
[2017-12-27] MEDS: lactobacillus rhamnosus 10,000 MMU CELLS/CAPSULE PO SCH ×2 (08:04→20:31)
[2017-12-27] MEDS: clonazePAM 1mg tablet PO SCH ×2 (08:06→20:32)
[2017-12-27] MEDS: ferrous sulfate 325mg tablet PO SCH (08:06)
[2017-12-27] MEDS: famotidine 20mg tablet PO SCH (08:07)
[2017-12-27] MEDS: benztropine 1mg tablet PO SCH ×3 (08:08→20:32)
[2017-12-27] MEDS: levoTHYROXINE 100mcg tablet PO SCH (08:08)
[2017-12-27] MEDS: carbidoba-levodopa 25-100mg tablet PO SCH (08:09)
[2017-12-27] MEDS: nystatin 15 GM powder TP SCH ×3 (08:09→20:31)
[2017-12-27] MEDS: lamoTRIgine 100mg tablet PO SCH (08:09)
[2017-12-27] MEDS: heparin, porcine 5000 units/ml vial SQ SCH ×2 (08:10→20:31)
[2017-12-27 10:00] VITALS: BP 93/58
[2017-12-27] MEDS: LORazepam 2 mg/ml vial IV PRN (13:02)
[2017-12-27 18:52] VITALS: BP 132/43
[2017-12-27] MEDS: atorvastatin 10mg tablet PO SCH (20:32)
[2017-12-27 22:00] VITALS: BP 136/66
[2017-12-27] MEDS: temazepam 15mg capsule PO PRN (22:29)
[2017-12-28 06:00] VITALS: BP 130/65
[2017-12-28] MEDS: LACTOSE-FREE FOOD 237ML (BOOST) PO SCH ×3 (08:00→18:00)
[2017-12-28 10:00] VITALS: BP 101/79
[2017-12-28] MEDS: K and/or MAG REPLACEMENT MC SCH (10:00)
[2017-12-28] MEDS: benztropine 1mg tablet PO SCH ×3 (10:20→20:51)
[2017-12-28] MEDS: levoTHYROXINE 100mcg tablet PO SCH (10:20)
[2017-12-28] MEDS: clonazePAM 1mg tablet PO SCH ×2 (10:20→20:53)
[2017-12-28] MEDS: docusate sod 100mg capsule PO SCH ×2 (10:20→20:51)
[2017-12-28] MEDS: ferrous sulfate 325mg tablet PO SCH (10:20)
[2017-12-28] MEDS: lactobacillus rhamnosus 10,000 MMU CELLS/CAPSULE PO SCH ×2 (10:20→20:54)
[2017-12-28] MEDS: potassium chloride 8mEq ER tablet PO SCH ×3 (10:20→20:53)
[2017-12-28] MEDS: propranolol 10mg tablet PO SCH ×2 (10:20→20:51)
[2017-12-28] MEDS: lisinopril 20mg tablet PO SCH (10:21)
[2017-12-28] MEDS: furosemide 40mg tablet PO SCH (10:21)
[2017-12-28] MEDS: lamoTRIgine 100mg tablet PO SCH (10:21)
[2017-12-28] MEDS: famotidine 20mg tablet PO SCH (10:21)
[2017-12-28] MEDS: carbidoba-levodopa 25-100mg tablet PO SCH (10:21)
[2017-12-28] MEDS: megestrol acetate 400mg/10ml UD oral suspension PO SCH (10:21)
[2017-12-28] MEDS: amLODIPine 5mg tablet PO SCH (10:21)
[2017-12-28] MEDS: sertraline 25mg tablet PO SCH (10:22)
[2017-12-28] MEDS: heparin, porcine 5000 units/ml vial SQ SCH ×2 (10:22→20:53)
[2017-12-28] MEDS: nystatin 15 GM powder TP SCH ×3 (13:00→20:54)
[2017-12-28] MEDS: LORazepam 2 mg/ml vial IV PRN (13:09)
[2017-12-28] MEDS: polyethylene glycol 3350 17gm powd pack PO SCH ×2 (16:33→20:54)
[2017-12-28 18:30] VITALS: BP 145/54
[2017-12-28] MEDS: temazepam 15mg capsule PO PRN (20:53)
[2017-12-28] MEDS: atorvastatin 10mg tablet PO SCH (20:53)
[2017-12-28] MEDS: azelastine Nasal Spray bottle NS SCH (20:54)
[2017-12-28] MEDS: polyvinyl alcohol ophthalmic drops 15ml bottle EACHEYE PRN (20:54)
[2017-12-28 22:40] VITALS: BP 156/95
[2017-12-29 06:00] VITALS: BP 138/42
[2017-12-29] MEDS: propranolol 10mg tablet PO SCH ×2 (08:00→21:50)
[2017-12-29] MEDS: polyethylene glycol 3350 17gm powd pack PO SCH ×2 (08:00→21:51)
[2017-12-29] MEDS: K and/or MAG REPLACEMENT MC SCH (08:00)
[2017-12-29] MEDS: nystatin 15 GM powder TP SCH ×3 (09:17→21:00)
[2017-12-29] MEDS: LORazepam 2 mg/ml vial IV PRN (09:18)
[2017-12-29] MEDS: levoTHYROXINE 100mcg tablet PO SCH (09:28)
[2017-12-29] MEDS: potassium chloride 8mEq ER tablet PO SCH ×3 (09:28→21:49)
[2017-12-29] MEDS: amLODIPine 5mg tablet PO SCH (09:28)
[2017-12-29] MEDS: lactobacillus rhamnosus 10,000 MMU CELLS/CAPSULE PO SCH ×2 (09:28→21:49)
[2017-12-29] MEDS: lisinopril 20mg tablet PO SCH (09:28)
[2017-12-29] MEDS: docusate sod 100mg capsule PO SCH ×2 (09:28→21:50)
[2017-12-29] MEDS: ferrous sulfate 325mg tablet PO SCH (09:28)
[2017-12-29] MEDS: famotidine 20mg tablet PO SCH (09:28)
[2017-12-29] MEDS: furosemide 40mg tablet PO SCH (09:29)
[2017-12-29] MEDS: clonazePAM 1mg tablet PO SCH ×2 (09:29→21:49)
[2017-12-29] MEDS: lamoTRIgine 100mg tablet PO SCH (09:29)
[2017-12-29] MEDS: carbidoba-levodopa 25-100mg tablet PO SCH (09:29)
[2017-12-29] MEDS: sertraline 25mg tablet PO SCH (09:29)
[2017-12-29] MEDS: benztropine 1mg tablet PO SCH ×3 (09:29→21:49)
[2017-12-29] MEDS: heparin, porcine 5000 units/ml vial SQ SCH ×2 (09:30→21:51)
[2017-12-29] MEDS: azelastine Nasal Spray bottle NS SCH ×2 (09:30→20:00)
[2017-12-29] MEDS: megestrol acetate 400mg/10ml UD oral suspension PO SCH (09:31)
[2017-12-29] MEDS: LACTOSE-FREE FOOD 237ML (BOOST) PO SCH ×3 (09:49→18:00)
[2017-12-29 10:00] VITALS: BP 147/102
[2017-12-29 18:00] VITALS: BP 121/50
[2017-12-29] MEDS: temazepam 15mg capsule PO PRN (21:50)
[2017-12-29] MEDS: atorvastatin 10mg tablet PO SCH (21:50)
[2017-12-29 22:00] VITALS: BP 151/50
[2017-12-30] MEDS: nystatin 15 GM powder TP SCH ×3 (08:00→20:14)
[2017-12-30] MEDS: K and/or MAG REPLACEMENT MC SCH (08:00)
[2017-12-30] MEDS: furosemide 40mg tablet PO SCH (09:59)
[2017-12-30] MEDS: famotidine 20mg tablet PO SCH (09:59)
[2017-12-30] MEDS: sertraline 25mg tablet PO SCH (09:59)
[2017-12-30 10:00] VITALS: BP 141/51
[2017-12-30] MEDS: lisinopril 20mg tablet PO SCH (10:00)
[2017-12-30] MEDS: potassium chloride 8mEq ER tablet PO SCH ×3 (10:00→20:13)
[2017-12-30] MEDS: clonazePAM 1mg tablet PO SCH (10:00)
[2017-12-30] MEDS: propranolol 10mg tablet PO SCH ×2 (10:00→20:00)
[2017-12-30] MEDS: lactobacillus rhamnosus 10,000 MMU CELLS/CAPSULE PO SCH ×3 (10:01→20:14)
[2017-12-30] MEDS: ferrous sulfate 325mg tablet PO SCH (10:01)
[2017-12-30] MEDS: docusate sod 100mg capsule PO SCH ×3 (10:01→20:14)
[2017-12-30] MEDS: heparin, porcine 5000 units/ml vial SQ SCH ×2 (10:01→20:14)
[2017-12-30] MEDS: levoTHYROXINE 100mcg tablet PO SCH (10:01)
[2017-12-30] MEDS: LACTOSE-FREE FOOD 237ML (BOOST) PO SCH ×3 (10:01→18:42)
[2017-12-30] MEDS: carbidoba-levodopa 25-100mg tablet PO SCH (10:01)
[2017-12-30] MEDS: lamoTRIgine 100mg tablet PO SCH (10:01)
[2017-12-30] MEDS: azelastine Nasal Spray bottle NS SCH ×2 (10:02→20:14)
[2017-12-30] MEDS: polyethylene glycol 3350 17gm powd pack PO SCH ×2 (10:02→20:26)
[2017-12-30] MEDS: megestrol acetate 400mg/10ml UD oral suspension PO SCH (10:02)
[2017-12-30] MEDS: benztropine 1mg tablet PO SCH ×3 (10:15→20:13)
[2017-12-30] MEDS: amLODIPine 5mg tablet PO SCH (10:15)
[2017-12-30] MEDS: LORazepam 2 mg/ml vial IV PRN (11:16)
[2017-12-30 18:00] VITALS: BP 112/64
[2017-12-30] MEDS ORDERED: OLANZapine 2.5MG tablet PO PRN (18:20)
[2017-12-30] MEDS: QUEtiapine 25mg tablet PO SCH (20:13)
[2017-12-30] MEDS: clonazePAM 0.5mg tablet PO SCH (20:13)
[2017-12-30] MEDS: atorvastatin 10mg tablet PO SCH (20:14)
[2017-12-31] MEDS: K and/or MAG REPLACEMENT MC SCH (07:53)
[2017-12-31] MEDS: docusate sod 100mg capsule PO SCH ×2 (07:54→20:00)
[2017-12-31] MEDS: propranolol 10mg tablet PO SCH ×2 (07:55→20:18)
[2017-12-31] MEDS: potassium chloride 8mEq ER tablet PO SCH ×2 (08:00→12:58)
[2017-12-31] MEDS: QUEtiapine 25mg tablet PO SCH ×2 (08:03→20:18)
[2017-12-31] MEDS: amLODIPine 5mg tablet PO SCH (08:03)
[2017-12-31] MEDS: lisinopril 20mg tablet PO SCH (08:03)
[2017-12-31] MEDS: benztropine 1mg tablet PO SCH ×2 (08:03→20:18)
[2017-12-31] MEDS: sertraline 25mg tablet PO SCH (08:03)
[2017-12-31] MEDS: famotidine 20mg tablet PO SCH (08:03)
[2017-12-31] MEDS: lactobacillus rhamnosus 10,000 MMU CELLS/CAPSULE PO SCH ×2 (08:03→20:17)
[2017-12-31] MEDS: clonazePAM 0.5mg tablet PO SCH ×2 (08:03→20:18)
[2017-12-31] MEDS: ferrous sulfate 325mg tablet PO SCH (08:03)
[2017-12-31] MEDS: azelastine Nasal Spray bottle NS SCH ×2 (08:04→20:17)
[2017-12-31] MEDS: LACTOSE-FREE FOOD 237ML (BOOST) PO SCH ×3 (08:04→18:00)
[2017-12-31] MEDS: nystatin 15 GM powder TP SCH ×3 (08:04→20:19)
[2017-12-31] MEDS: heparin, porcine 5000 units/ml vial SQ SCH ×2 (08:04→20:19)
[2017-12-31] MEDS: levoTHYROXINE 100mcg tablet PO SCH (08:06)
[2017-12-31] MEDS: polyvinyl alcohol ophthalmic drops 15ml bottle EACHEYE PRN ×2 (08:15→20:33)
[2017-12-31 10:00] VITALS: BP 102/38
[2017-12-31 10:13] LABS: BASOPHILS % (AUTO) 0.3 % (0-1); EOSINOPHILS # (AUTO) 0.4 X10'3 (0-0.9); EOSINOPHILS % (AUTO) 3.8 % (0-6); HEMATOCRIT 34.3 % (35.0-45.0); HEMOGLOBIN 11.8 g/dl (12.0-16.0); LYMPHOCYTES # (AUTO) 1.2 X10'3 (1.1-4.8); LYMPHOCYTES % (AUTO) 12.4 % (21-51); MEAN CORPUSCULAR HGB CONC 34.4 % (33.0-36.5); MEAN CORPUSCULAR VOLUME 92.9 FL (78-98); MONOCYTES # (AUTO) 0.9 X10'3 (0-0.9); MONOCYTES % (AUTO) 9.1 % (2-12); NEUTROPHILS # (AUTO) 7.2 X10'3 (1.8-7.7); NEUTROPHILS % (AUTO) 74.4 % (42-75); PLATELET COUNT 249 X10'3 (140-440); RED BLOOD COUNT 3.69 X10'6 (4.20-5.60); RED CELL DISTRIBUTION WIDTH 15.3 % (11.5-14.5); WHITE BLOOD COUNT 9.7 X10'3 (4.5-11.0)
[2017-12-31 10:22] LABS: ALBUMIN 3.4 G/DL (3.4-5.0); ANION GAP 9 (8-16); BLOOD UREA NITROGEN 26 MG/DL (7-18); CHLORIDE 106 MMOL/L (99-107); GLUCOSE 110 MG/DL (70-104); POTASSIUM 4.4 MMOL/L (3.5-5.1); SODIUM 142 MMOL/L (135-145); eGFR 40 ML/MIN
[2017-12-31] MEDS ORDERED: potassium Cl 40MEQ/NS 500ml 500 ML IV PRN ×2 (10:45)
[2017-12-31] MEDS ORDERED: potassium Cl 20 mEq SR tablet PO PRN ×2 (10:45)
[2017-12-31] MEDS: atorvastatin 10mg tablet PO SCH (20:18)
[2017-12-31] MEDS: polyethylene glycol 3350 17gm powd pack PO SCH (20:30)
[2017-12-31 21:00] VITALS: BP 122/72
[2017-12-31] MEDS: temazepam 15mg capsule PO PRN (22:16)
[2018-01-01 06:00] VITALS: BP 109/37
[2018-01-01 06:33] LABS: MAGNESIUM 2.6 MG/DL (1.5-2.4); POTASSIUM 4.7 MMOL/L (3.5-5.1)
[2018-01-01] MEDS: QUEtiapine 25mg tablet PO SCH ×2 (07:52→20:34)
[2018-01-01] MEDS: clonazePAM 0.5mg tablet PO SCH ×2 (07:52→20:34)
[2018-01-01] MEDS: sertraline 25mg tablet PO SCH (07:52)
[2018-01-01] MEDS: benztropine 1mg tablet PO SCH ×2 (07:52→20:34)
[2018-01-01] MEDS: famotidine 20mg tablet PO SCH (07:52)
[2018-01-01] MEDS: lactobacillus rhamnosus 10,000 MMU CELLS/CAPSULE PO SCH ×2 (07:52→20:34)
[2018-01-01] MEDS: levoTHYROXINE 100mcg tablet PO SCH (07:52)
[2018-01-01] MEDS: ferrous sulfate 325mg tablet PO SCH (07:52)
[2018-01-01] MEDS: heparin, porcine 5000 units/ml vial SQ SCH ×2 (07:53→20:36)
[2018-01-01] MEDS: azelastine Nasal Spray bottle NS SCH ×2 (07:54→20:35)
[2018-01-01] MEDS: polyvinyl alcohol ophthalmic drops 15ml bottle EACHEYE PRN ×2 (07:54→20:35)
[2018-01-01] MEDS ORDERED: lisinopril 20mg tablet PO SCH (08:00)
[2018-01-01] MEDS: docusate sod 100mg capsule PO SCH ×2 (08:00→20:34)
[2018-01-01] MEDS: propranolol 10mg tablet PO SCH (08:06)
[2018-01-01] MEDS: LACTOSE-FREE FOOD 237ML (BOOST) PO SCH ×3 (08:10→18:00)
[2018-01-01] MEDS: nystatin 15 GM powder TP SCH ×3 (08:10→20:48)
[2018-01-01 10:00] VITALS: BP 113/36
[2018-01-01 10:15] VITALS: BP 112/45
[2018-01-01] MEDS ORDERED: lisinopril 10 MG tablet PO SCH (10:58)
[2018-01-01 13:12] VITALS: BP 113/50
[2018-01-01] MEDS ORDERED: OLANZapine 2.5MG tablet PO PRN (13:35)
[2018-01-01 14:32] LABS: ALANINE AMINOTRANSFERASE 28 U/L (12-78); ALBUMIN 3.1 G/DL (3.4-5.0); ALKALINE PHOSPHATASE 89 IU/L (46-116); ANION GAP 9 (8-16); ASPARTATE AMINO TRANSFERASE 13 U/L (10-37); BILIRUBIN,TOTAL 0.4 MG/DL (0.1-1.0); BLOOD UREA NITROGEN 30 MG/DL (7-18); BUN/CREATININE RATIO 22.6 (6.6-38.0); CALCIUM 9.7 MG/DL (8.5-10.1); CHLORIDE 108 MMOL/L (99-107); CREATININE 1.33 MG/DL (0.40-0.90); GLUCOSE 114 MG/DL (70-104); POTASSIUM 4.6 MMOL/L (3.5-5.1); SODIUM 142 MMOL/L (135-145); TOTAL CARBON DIOXIDE 24.7 MMOL/L (24-32); TOTAL PROTEIN 6.1 G/DL (6.4-8.2); eGFR 39 ML/MIN
[2018-01-01] MEDS ORDERED: LORazepam 2 mg/ml vial IM ONE ×2 (15:10→16:10)
[2018-01-01 18:20] VITALS: BP 110/48
[2018-01-01] MEDS: atorvastatin 10mg tablet PO SCH (20:34)
[2018-01-01] MEDS: polyethylene glycol 3350 17gm powd pack PO SCH (20:35)
[2018-01-01] MEDS: OLANZapine 2.5MG tablet PO PRN (20:37)
[2018-01-01] MEDS: temazepam 15mg capsule PO PRN (20:37)
[2018-01-01 22:00] VITALS: BP 123/40
[2018-01-02 06:00] VITALS: BP 138/53
[2018-01-02 06:19] LABS: BASOPHILS # (AUTO) 0.1 X10'3 (0-0.2); EOSINOPHILS # (AUTO) 0.3 X10'3 (0-0.9); EOSINOPHILS % (AUTO) 6.1 % (0-6); LYMPHOCYTES # (AUTO) 1.2 X10'3 (1.1-4.8); LYMPHOCYTES % (AUTO) 22.4 % (21-51); MEAN CORPUSCULAR HGB CONC 34.6 % (33.0-36.5); MEAN CORPUSCULAR VOLUME 92.5 FL (78-98); MEAN PLATELET VOLUME 8.1 FL (7.4-10.4); MONOCYTES # (AUTO) 0.7 X10'3 (0-0.9); MONOCYTES % (AUTO) 12.3 % (2-12); NEUTROPHILS # (AUTO) 3.2 X10'3 (1.8-7.7); NEUTROPHILS % (AUTO) 58.2 % (42-75); PLATELET COUNT 219 X10'3 (140-440); RED BLOOD COUNT 3.14 X10'6 (4.20-5.60); RED CELL DISTRIBUTION WIDTH 15.1 % (11.5-14.5); WHITE BLOOD COUNT 5.5 X10'3 (4.5-11.0)
[2018-01-02 06:40] LABS: ALANINE AMINOTRANSFERASE 28 U/L (12-78); ALBUMIN 2.9 G/DL (3.4-5.0); ALKALINE PHOSPHATASE 82 IU/L (46-116); ANION GAP 8 (8-16); ASPARTATE AMINO TRANSFERASE 15 U/L (10-37); BILIRUBIN,TOTAL 0.4 MG/DL (0.1-1.0); BLOOD UREA NITROGEN 26 MG/DL (7-18); BUN/CREATININE RATIO 23.4 (6.6-38.0); CALCIUM 9.7 MG/DL (8.5-10.1); CHLORIDE 111 MMOL/L (99-107); CREATININE 1.11 MG/DL (0.40-0.90); GLUCOSE 91 MG/DL (70-104); MAGNESIUM 2.6 MG/DL (1.5-2.4); SODIUM 144 MMOL/L (135-145); TOTAL CARBON DIOXIDE 25.3 MMOL/L (24-32); TOTAL PROTEIN 5.8 G/DL (6.4-8.2); eGFR 48 ML/MIN
[2018-01-02] MEDS ORDERED: lisinopril 10 MG tablet PO SCH (08:00)
[2018-01-02] MEDS: LACTOSE-FREE FOOD 237ML (BOOST) PO SCH ×3 (08:00→18:00)
[2018-01-02] MEDS: azelastine Nasal Spray bottle NS SCH ×2 (08:00→21:26)
[2018-01-02] MEDS: lactobacillus rhamnosus 10,000 MMU CELLS/CAPSULE PO SCH ×2 (09:18→21:25)
[2018-01-02] MEDS: docusate sod 100mg capsule PO SCH ×2 (09:18→21:25)
[2018-01-02] MEDS: ferrous sulfate 325mg tablet PO SCH (09:18)
[2018-01-02] MEDS: polyethylene glycol 3350 17gm powd pack PO SCH ×2 (09:18→21:26)
[2018-01-02] MEDS: levoTHYROXINE 100mcg tablet PO SCH (09:18)
[2018-01-02] MEDS: benztropine 1mg tablet PO SCH ×2 (09:19→21:25)
[2018-01-02] MEDS: QUEtiapine 25mg tablet PO SCH ×2 (09:19→21:25)
[2018-01-02] MEDS: sertraline 25mg tablet PO SCH (09:19)
[2018-01-02] MEDS: famotidine 20mg tablet PO SCH (09:19)
[2018-01-02] MEDS: propranolol 10mg tablet PO SCH (09:19)
[2018-01-02] MEDS: clonazePAM 0.5mg tablet PO SCH ×2 (09:19→21:25)
[2018-01-02] MEDS: heparin, porcine 5000 units/ml vial SQ SCH ×2 (09:28→21:26)
[2018-01-02] MEDS: nystatin 15 GM powder TP SCH ×3 (09:29→21:00)
[2018-01-02 10:00] VITALS: BP 136/51
[2018-01-02 18:45] VITALS: BP 112/41
[2018-01-02] MEDS: atorvastatin 10mg tablet PO SCH (21:25)
[2018-01-02] MEDS: polyvinyl alcohol ophthalmic drops 15ml bottle EACHEYE PRN (21:26)
[2018-01-02 22:00] VITALS: BP 119/47
[2018-01-03 06:00] VITALS: BP 133/64
[2018-01-03 06:11] LABS: BASOPHILS % (AUTO) 0.5 % (0-1); EOSINOPHILS # (AUTO) 0.4 X10'3 (0-0.9); EOSINOPHILS % (AUTO) 6.3 % (0-6); HEMATOCRIT 28.8 % (35.0-45.0); HEMOGLOBIN 9.9 g/dl (12.0-16.0); LYMPHOCYTES # (AUTO) 1.2 X10'3 (1.1-4.8); MEAN CORPUSCULAR HEMOGLOBIN 32.3 PG (27.0-31.0); MEAN CORPUSCULAR HGB CONC 34.4 % (33.0-36.5); MEAN CORPUSCULAR VOLUME 93.6 FL (78-98); MONOCYTES # (AUTO) 0.7 X10'3 (0-0.9); MONOCYTES % (AUTO) 11.3 % (2-12); NEUTROPHILS # (AUTO) 4.2 X10'3 (1.8-7.7); NEUTROPHILS % (AUTO) 63.9 % (42-75); PLATELET COUNT 212 X10'3 (140-440); RED BLOOD COUNT 3.08 X10'6 (4.20-5.60); RED CELL DISTRIBUTION WIDTH 15.4 % (11.5-14.5); WHITE BLOOD COUNT 6.6 X10'3 (4.5-11.0)
[2018-01-03 06:27] LABS: ALANINE AMINOTRANSFERASE 28 U/L (12-78); ALBUMIN 2.8 G/DL (3.4-5.0); ALBUMIN/GLOBULIN RATIO 0.9 (1.1-1.5); ALKALINE PHOSPHATASE 84 IU/L (46-116); ANION GAP 8 (8-16); ASPARTATE AMINO TRANSFERASE 13 U/L (10-37); BILIRUBIN,TOTAL 0.4 MG/DL (0.1-1.0); BLOOD UREA NITROGEN 29 MG/DL (7-18); BUN/CREATININE RATIO 23.2 (6.6-38.0); CALCIUM 9.6 MG/DL (8.5-10.1); CHLORIDE 111 MMOL/L (99-107); CREATININE 1.25 MG/DL (0.40-0.90); GLUCOSE 92 MG/DL (70-104); MAGNESIUM 2.4 MG/DL (1.5-2.4); POTASSIUM 5.4 MMOL/L (3.5-5.1); SODIUM 144 MMOL/L (135-145); TOTAL PROTEIN 5.8 G/DL (6.4-8.2); eGFR 42 ML/MIN
[2018-01-03] MEDS: azelastine Nasal Spray bottle NS SCH ×2 (08:00→20:28)
[2018-01-03] MEDS: LACTOSE-FREE FOOD 237ML (BOOST) PO SCH ×3 (08:42→20:46)
[2018-01-03] MEDS: ferrous sulfate 325mg tablet PO SCH (09:02)
[2018-01-03] MEDS: lactobacillus rhamnosus 10,000 MMU CELLS/CAPSULE PO SCH ×2 (09:02→20:28)
[2018-01-03] MEDS: propranolol 10mg tablet PO SCH (09:02)
[2018-01-03] MEDS: sertraline 25mg tablet PO SCH (09:02)
[2018-01-03] MEDS: docusate sod 100mg capsule PO SCH ×2 (09:02→20:28)
[2018-01-03] MEDS: QUEtiapine 25mg tablet PO SCH ×2 (09:02→20:27)
[2018-01-03] MEDS: famotidine 20mg tablet PO SCH (09:02)
[2018-01-03] MEDS: benztropine 1mg tablet PO SCH ×2 (09:02→20:27)
[2018-01-03] MEDS: clonazePAM 0.5mg tablet PO SCH ×2 (09:02→20:27)
[2018-01-03] MEDS: nystatin 15 GM powder TP SCH ×4 (09:05→21:00)
[2018-01-03] MEDS: heparin, porcine 5000 units/ml vial SQ SCH ×2 (09:05→20:27)
[2018-01-03] MEDS: levoTHYROXINE 100mcg tablet PO SCH (09:09)
[2018-01-03] MEDS: polyvinyl alcohol ophthalmic drops 15ml bottle EACHEYE PRN ×2 (09:10→20:41)
[2018-01-03] MEDS: OLANZapine 2.5MG tablet PO PRN (17:49)
[2018-01-03 18:00] VITALS: BP 115/83
[2018-01-03] MEDS ORDERED: sodium polystyrene sulfonate 15gm/60ml oral suspension PO ONE (19:15)
[2018-01-03] MEDS: polyethylene glycol 3350 17gm powd pack PO SCH (20:27)
[2018-01-03] MEDS: atorvastatin 10mg tablet PO SCH (20:27)
[2018-01-03] MEDS: temazepam 15mg capsule PO PRN (20:28)
[2018-01-03 22:00] VITALS: BP 135/44
[2018-01-03] MEDS: mag hydrox/Alum hydrox/simeth 30ml oral suspension PO PRN (22:37)
[2018-01-03] MEDS: acetaminophen 325mg tablet PO PRN (22:37)
[2018-01-04 05:55] LABS: BASOPHILS % (AUTO) 0.5 % (0-1); EOSINOPHILS # (AUTO) 0.4 X10'3 (0-0.9); EOSINOPHILS % (AUTO) 6.7 % (0-6); HEMATOCRIT 27.6 % (35.0-45.0); HEMOGLOBIN 9.6 g/dl (12.0-16.0); LYMPHOCYTES # (AUTO) 1.2 X10'3 (1.1-4.8); LYMPHOCYTES % (AUTO) 21.6 % (21-51); MEAN CORPUSCULAR HGB CONC 34.7 % (33.0-36.5); MEAN CORPUSCULAR VOLUME 92.2 FL (78-98); MEAN PLATELET VOLUME 8.2 FL (7.4-10.4); MONOCYTES # (AUTO) 0.7 X10'3 (0-0.9); MONOCYTES % (AUTO) 12.9 % (2-12); NEUTROPHILS # (AUTO) 3.2 X10'3 (1.8-7.7); NEUTROPHILS % (AUTO) 58.3 % (42-75); PLATELET COUNT 197 X10'3 (140-440); RED CELL DISTRIBUTION WIDTH 15.1 % (11.5-14.5); WHITE BLOOD COUNT 5.4 X10'3 (4.5-11.0)
[2018-01-04 06:00] VITALS: BP 142/45
[2018-01-04 06:10] LABS: ALANINE AMINOTRANSFERASE 25 U/L (12-78); ALBUMIN 2.8 G/DL (3.4-5.0); ALKALINE PHOSPHATASE 79 IU/L (46-116); ANION GAP 8 (8-16); ASPARTATE AMINO TRANSFERASE 13 U/L (10-37); BILIRUBIN,TOTAL 0.4 MG/DL (0.1-1.0); BLOOD UREA NITROGEN 30 MG/DL (7-18); BUN/CREATININE RATIO 25.2 (6.6-38.0); CALCIUM 9.4 MG/DL (8.5-10.1); CHLORIDE 110 MMOL/L (99-107); CREATININE 1.19 MG/DL (0.40-0.90); GLUCOSE 95 MG/DL (70-104); MAGNESIUM 2.4 MG/DL (1.5-2.4); POTASSIUM 4.5 MMOL/L (3.5-5.1); SODIUM 143 MMOL/L (135-145); TOTAL CARBON DIOXIDE 25.5 MMOL/L (24-32); TOTAL PROTEIN 5.6 G/DL (6.4-8.2); eGFR 44 ML/MIN
[2018-01-04] MEDS: docusate sod 100mg capsule PO SCH ×2 (08:00→20:00)
[2018-01-04] MEDS: nystatin 15 GM powder TP SCH ×2 (08:03→21:13)
[2018-01-04] MEDS: azelastine Nasal Spray bottle NS SCH ×2 (08:04→20:00)
[2018-01-04] MEDS: OLANZapine 2.5MG tablet PO PRN (08:05)
[2018-01-04] MEDS: sertraline 25mg tablet PO SCH (08:05)
[2018-01-04] MEDS: QUEtiapine 25mg tablet PO SCH ×2 (08:06→20:00)
[2018-01-04] MEDS: famotidine 20mg tablet PO SCH (08:06)
[2018-01-04] MEDS: clonazePAM 0.5mg tablet PO SCH ×2 (08:07→20:00)
[2018-01-04] MEDS: propranolol 10mg tablet PO SCH (08:07)
[2018-01-04] MEDS: ferrous sulfate 325mg tablet PO SCH (08:08)
[2018-01-04] MEDS: lactobacillus rhamnosus 10,000 MMU CELLS/CAPSULE PO SCH (08:09)
[2018-01-04] MEDS: LACTOSE-FREE FOOD 237ML (BOOST) PO SCH ×3 (08:10→18:00)
[2018-01-04] MEDS: benztropine 1mg tablet PO SCH ×2 (08:10→20:00)
[2018-01-04] MEDS: levoTHYROXINE 100mcg tablet PO SCH (08:11)
[2018-01-04] MEDS: heparin, porcine 5000 units/ml vial SQ SCH ×2 (08:12→20:00)
[2018-01-04 10:00] VITALS: BP 142/40
[2018-01-04 18:00] VITALS: BP 167/56
[2018-01-04] MEDS: polyethylene glycol 3350 17gm powd pack PO SCH (21:00)
[2018-01-04] MEDS: atorvastatin 10mg tablet PO SCH (21:00)
[2018-01-05 05:50] LABS: BASOPHILS % (AUTO) 0.3 % (0-1); EOSINOPHILS # (AUTO) 0.5 X10'3 (0-0.9); HEMATOCRIT 32.6 % (35.0-45.0); HEMOGLOBIN 11.3 g/dl (12.0-16.0); LYMPHOCYTES # (AUTO) 0.9 X10'3 (1.1-4.8); LYMPHOCYTES % (AUTO) 12.3 % (21-51); MEAN CORPUSCULAR HEMOGLOBIN 32.1 PG (27.0-31.0); MEAN CORPUSCULAR HGB CONC 34.8 % (33.0-36.5); MEAN CORPUSCULAR VOLUME 92.2 FL (78-98); MEAN PLATELET VOLUME 8.2 FL (7.4-10.4); MONOCYTES # (AUTO) 0.8 X10'3 (0-0.9); MONOCYTES % (AUTO) 10.8 % (2-12); NEUTROPHILS # (AUTO) 5.3 X10'3 (1.8-7.7); NEUTROPHILS % (AUTO) 69.6 % (42-75); PLATELET COUNT 222 X10'3 (140-440); RED BLOOD COUNT 3.53 X10'6 (4.20-5.60); RED CELL DISTRIBUTION WIDTH 14.8 % (11.5-14.5); WHITE BLOOD COUNT 7.6 X10'3 (4.5-11.0)
[2018-01-05 06:11] LABS: ALANINE AMINOTRANSFERASE 32 U/L (12-78); ALBUMIN 3.2 G/DL (3.4-5.0); ALBUMIN/GLOBULIN RATIO 0.9 (1.1-1.5); ALKALINE PHOSPHATASE 96 IU/L (46-116); ANION GAP 11 (8-16); ASPARTATE AMINO TRANSFERASE 18 U/L (10-37); BILIRUBIN,TOTAL 0.4 MG/DL (0.1-1.0); BLOOD UREA NITROGEN 24 MG/DL (7-18); BUN/CREATININE RATIO 24.7 (6.6-38.0); CALCIUM 9.5 MG/DL (8.5-10.1); CHLORIDE 109 MMOL/L (99-107); CREATININE 0.97 MG/DL (0.40-0.90); GLUCOSE 89 MG/DL (70-104); MAGNESIUM 2.3 MG/DL (1.5-2.4); POTASSIUM 4.2 MMOL/L (3.5-5.1); SODIUM 144 MMOL/L (135-145); TOTAL CARBON DIOXIDE 23.9 MMOL/L (24-32); TOTAL PROTEIN 6.6 G/DL (6.4-8.2); eGFR 56 ML/MIN
[2018-01-05] MEDS: azelastine Nasal Spray bottle NS SCH ×2 (08:00→20:00)
[2018-01-05] MEDS: nystatin 15 GM powder TP SCH ×3 (08:00→21:00)
[2018-01-05] MEDS: docusate sod 100mg capsule PO SCH ×2 (08:00→20:00)
[2018-01-05 10:00] VITALS: BP 154/64
[2018-01-05] MEDS: famotidine 20mg tablet PO SCH (10:05)
[2018-01-05] MEDS: QUEtiapine 25mg tablet PO SCH ×2 (10:05→19:25)
[2018-01-05] MEDS: sertraline 25mg tablet PO SCH (10:05)
[2018-01-05] MEDS: propranolol 10mg tablet PO SCH (10:05)
[2018-01-05] MEDS: benztropine 1mg tablet PO SCH ×2 (10:05→19:26)
[2018-01-05] MEDS: ferrous sulfate 325mg tablet PO SCH (10:05)
[2018-01-05] MEDS: clonazePAM 0.5mg tablet PO SCH ×2 (10:05→19:25)
[2018-01-05] MEDS: levoTHYROXINE 100mcg tablet PO SCH (10:05)
[2018-01-05] MEDS: heparin, porcine 5000 units/ml vial SQ SCH ×2 (10:06→19:37)
[2018-01-05] MEDS: LACTOSE-FREE FOOD 237ML (BOOST) PO SCH ×3 (10:06→18:00)
[2018-01-05 18:00] VITALS: BP 133/59
[2018-01-05] MEDS: polyvinyl alcohol ophthalmic drops 15ml bottle EACHEYE PRN (19:22)
[2018-01-05] MEDS: polyethylene glycol 3350 17gm powd pack PO SCH (21:00)
[2018-01-05] MEDS: atorvastatin 10mg tablet PO SCH (21:00)
[2018-01-05 22:00] VITALS: BP 147/56
[2018-01-05] MEDS: acetaminophen 325mg tablet PO PRN (23:30)
[2018-01-06 06:00] VITALS: BP_SYST 133; BP_DIAS 44; BP_DIAS 59
[2018-01-06 06:09] LABS: BASOPHILS % (AUTO) 0.6 % (0-1); EOSINOPHILS # (AUTO) 0.5 X10'3 (0-0.9); EOSINOPHILS % (AUTO) 6.8 % (0-6); HEMATOCRIT 30.7 % (35.0-45.0); HEMOGLOBIN 10.6 g/dl (12.0-16.0); LYMPHOCYTES # (AUTO) 1.3 X10'3 (1.1-4.8); LYMPHOCYTES % (AUTO) 19.3 % (21-51); MEAN CORPUSCULAR HEMOGLOBIN 31.7 PG (27.0-31.0); MEAN CORPUSCULAR HGB CONC 34.5 % (33.0-36.5); MEAN CORPUSCULAR VOLUME 91.9 FL (78-98); MEAN PLATELET VOLUME 8.1 FL (7.4-10.4); MONOCYTES # (AUTO) 0.8 X10'3 (0-0.9); MONOCYTES % (AUTO) 11.6 % (2-12); NEUTROPHILS # (AUTO) 4.2 X10'3 (1.8-7.7); NEUTROPHILS % (AUTO) 61.7 % (42-75); PLATELET COUNT 219 X10'3 (140-440); RED BLOOD COUNT 3.34 X10'6 (4.20-5.60); RED CELL DISTRIBUTION WIDTH 14.5 % (11.5-14.5); WHITE BLOOD COUNT 6.8 X10'3 (4.5-11.0)
[2018-01-06 06:25] LABS: ALANINE AMINOTRANSFERASE 30 U/L (12-78); ALBUMIN 3.1 G/DL (3.4-5.0); ALKALINE PHOSPHATASE 85 IU/L (46-116); ANION GAP 10 (8-16); ASPARTATE AMINO TRANSFERASE 16 U/L (10-37); BILIRUBIN,TOTAL 0.4 MG/DL (0.1-1.0); BLOOD UREA NITROGEN 33 MG/DL (7-18); BUN/CREATININE RATIO 29.5 (6.6-38.0); CALCIUM 9.5 MG/DL (8.5-10.1); CHLORIDE 109 MMOL/L (99-107); CREATININE 1.12 MG/DL (0.40-0.90); GLUCOSE 96 MG/DL (70-104); POTASSIUM 4.7 MMOL/L (3.5-5.1); SODIUM 142 MMOL/L (135-145); TOTAL CARBON DIOXIDE 22.7 MMOL/L (24-32); TOTAL PROTEIN 6.2 G/DL (6.4-8.2); eGFR 47 ML/MIN
[2018-01-06] MEDS: docusate sod 100mg capsule PO SCH ×2 (09:16→09:22)
[2018-01-06] MEDS: ferrous sulfate 325mg tablet PO SCH (09:17)
[2018-01-06] MEDS: benztropine 1mg tablet PO SCH ×2 (09:17→09:21)
[2018-01-06] MEDS: clonazePAM 0.5mg tablet PO SCH ×2 (09:17→09:22)
[2018-01-06] MEDS: sertraline 25mg tablet PO SCH ×2 (09:17→09:28)
[2018-01-06] MEDS: azelastine Nasal Spray bottle NS SCH ×2 (09:17→09:21)
[2018-01-06] MEDS: nystatin 15 GM powder TP SCH ×3 (09:17→20:39)
[2018-01-06] MEDS: famotidine 20mg tablet PO SCH ×2 (09:18→09:27)
[2018-01-06] MEDS: propranolol 10mg tablet PO SCH ×2 (09:18→09:27)
[2018-01-06] MEDS: LACTOSE-FREE FOOD 237ML (BOOST) PO SCH ×3 (09:18→20:28)
[2018-01-06] MEDS: levoTHYROXINE 100mcg tablet PO SCH ×2 (09:18→09:27)
[2018-01-06] MEDS: QUEtiapine 25mg tablet PO SCH ×2 (09:18→09:23)
[2018-01-06] MEDS: heparin, porcine 5000 units/ml vial SQ SCH ×2 (09:19→09:23)
[2018-01-06] MEDS ORDERED: OLAN2.5T28 PO (12:06)
[2018-01-06] MEDS ORDERED: FER325T PO (12:06)
[2018-01-06] MEDS ORDERED: SERT25TA5 PO (13:34)
[2018-01-06 18:00] VITALS: BP 156/92
[2018-01-06] MEDS ORDERED: LORazepam 2 mg/ml vial IM PRN (18:04)
[2018-01-06] MEDS ORDERED: LORazepam 2 mg/ml vial IV ONE (18:15)
[2018-01-06] MEDS: OLANZapine 2.5MG tablet PO PRN (20:29)
[2018-01-06] MEDS: atorvastatin 10mg tablet PO SCH (20:29)
[2018-01-06] MEDS: polyethylene glycol 3350 17gm powd pack PO SCH (20:29)
[2018-01-06] MEDS: temazepam 15mg capsule PO PRN (20:29)
[2018-01-06 22:00] VITALS: BP 136/92
[2018-01-07 05:00] VITALS: BP 146/60
[2018-01-07 05:07] LABS: BASOPHILS % (AUTO) 0.5 % (0-1); EOSINOPHILS # (AUTO) 0.4 X10'3 (0-0.9); EOSINOPHILS % (AUTO) 6.1 % (0-6); HEMATOCRIT 29.3 % (35.0-45.0); HEMOGLOBIN 10.1 g/dl (12.0-16.0); LYMPHOCYTES % (AUTO) 14.4 % (21-51); MEAN CORPUSCULAR HEMOGLOBIN 31.8 PG (27.0-31.0); MEAN CORPUSCULAR HGB CONC 34.5 % (33.0-36.5); MEAN CORPUSCULAR VOLUME 92.2 FL (78-98); MEAN PLATELET VOLUME 7.9 FL (7.4-10.4); MONOCYTES # (AUTO) 0.7 X10'3 (0-0.9); MONOCYTES % (AUTO) 10.6 % (2-12); NEUTROPHILS # (AUTO) 4.8 X10'3 (1.8-7.7); NEUTROPHILS % (AUTO) 68.4 % (42-75); PLATELET COUNT 213 X10'3 (140-440); RED BLOOD COUNT 3.18 X10'6 (4.20-5.60); RED CELL DISTRIBUTION WIDTH 14.6 % (11.5-14.5)
[2018-01-07 05:30] LABS: ALANINE AMINOTRANSFERASE 35 U/L (12-78); ALBUMIN 3.1 G/DL (3.4-5.0); ALBUMIN/GLOBULIN RATIO 1.1 (1.1-1.5); ALKALINE PHOSPHATASE 77 IU/L (46-116); ANION GAP 9 (8-16); ASPARTATE AMINO TRANSFERASE 25 U/L (10-37); BILIRUBIN,TOTAL 0.4 MG/DL (0.1-1.0); BLOOD UREA NITROGEN 32 MG/DL (7-18); BUN/CREATININE RATIO 32.3 (6.6-38.0); CALCIUM 9.4 MG/DL (8.5-10.1); CHLORIDE 109 MMOL/L (99-107); CREATININE 0.99 MG/DL (0.40-0.90); GLUCOSE 94 MG/DL (70-104); POTASSIUM 4.5 MMOL/L (3.5-5.1); SODIUM 142 MMOL/L (135-145); TOTAL CARBON DIOXIDE 24.4 MMOL/L (24-32); TOTAL PROTEIN 5.9 G/DL (6.4-8.2); eGFR 55 ML/MIN
[2018-01-07] MEDS ORDERED: LORazepam 1 MG tablet PO PRN (07:45)
[2018-01-07] MEDS: lurasidone 60mg tablet PO SCH ×2 (08:00→20:48)
[2018-01-07] MEDS ORDERED: CHOLECALCIFEROL 50000 UNIT PO SCH (08:00)
[2018-01-07] MEDS ORDERED: carbidoba-levodopa 25-100mg tablet PO SCH (08:00)
[2018-01-07] MEDS: nystatin 15 GM powder TP SCH ×3 (08:25→20:11)
[2018-01-07] MEDS: azelastine Nasal Spray bottle NS SCH ×2 (08:25→20:00)
[2018-01-07] MEDS: ascorbic acid 500mg tablet PO SCH ×2 (08:26→20:10)
[2018-01-07] MEDS: QUEtiapine 25mg tablet PO SCH ×2 (08:26→20:10)
[2018-01-07] MEDS: benztropine 1mg tablet PO SCH ×3 (08:26→20:10)
[2018-01-07] MEDS: ferrous sulfate 325mg tablet PO SCH (08:27)
[2018-01-07] MEDS: calcium carbonate 500mg tablet PO SCH ×2 (08:27→20:10)
[2018-01-07] MEDS: clonazePAM 0.5mg tablet PO SCH ×2 (08:27→20:10)
[2018-01-07] MEDS: pyridoxine 50mg tablet PO SCH ×2 (08:27→20:10)
[2018-01-07] MEDS: docusate sod 100mg capsule PO SCH ×2 (08:27→20:11)
[2018-01-07] MEDS: LACTOSE-FREE FOOD 237ML (BOOST) PO SCH ×3 (08:28→18:00)
[2018-01-07] MEDS: aspirin 81mg tab.chew PO SCH (08:28)
[2018-01-07] MEDS: heparin, porcine 5000 units/ml vial SQ SCH ×2 (08:29→20:09)
[2018-01-07] MEDS ORDERED: polyvinyl alcohol ophthalmic drops 15ml bottle EACHEYE PRN (08:45)
[2018-01-07 10:00] VITALS: BP 135/39
[2018-01-07 18:00] VITALS: BP 140/48
[2018-01-07] MEDS: polyethylene glycol 3350 17gm powd pack PO SCH (20:09)
[2018-01-07] MEDS: sennosides 8.6mg tablet PO SCH (20:10)
[2018-01-07] MEDS: temazepam 15mg capsule PO PRN (20:10)
[2018-01-07] MEDS: atorvastatin 10mg tablet PO SCH (20:10)
[2018-01-07 22:00] VITALS: BP 105/56
[2018-01-08 05:00] VITALS: BP 134/41
[2018-01-08] MEDS: docusate sod 100mg capsule PO SCH ×2 (08:00→20:42)
[2018-01-08] MEDS: levoTHYROXINE 100mcg tablet PO SCH (08:02)
[2018-01-08] MEDS: benztropine 1mg tablet PO SCH ×2 (08:02→20:42)
[2018-01-08] MEDS: sertraline 25mg tablet PO SCH (08:02)
[2018-01-08] MEDS: clonazePAM 0.5mg tablet PO SCH ×2 (08:02→20:42)
[2018-01-08] MEDS: famotidine 20mg tablet PO SCH (08:02)
[2018-01-08] MEDS: vitamin D (cholecalciferol) 1,000 unit tablet PO SCH (08:02)
[2018-01-08] MEDS: ascorbic acid 500mg tablet PO SCH ×2 (08:03→20:42)
[2018-01-08] MEDS: ferrous sulfate 325mg tablet PO SCH (08:03)
[2018-01-08] MEDS: QUEtiapine 25mg tablet PO SCH ×2 (08:03→20:42)
[2018-01-08] MEDS: propranolol 10mg tablet PO SCH (08:03)
[2018-01-08] MEDS: calcium carbonate 500mg tablet PO SCH ×2 (08:03→20:42)
[2018-01-08] MEDS: pyridoxine 50mg tablet PO SCH ×2 (08:03→20:42)
[2018-01-08] MEDS: azelastine Nasal Spray bottle NS SCH ×2 (08:03→20:43)
[2018-01-08] MEDS: aspirin 81mg tab.chew PO SCH (08:03)
[2018-01-08] MEDS: heparin, porcine 5000 units/ml vial SQ SCH ×2 (08:04→20:43)
[2018-01-08] MEDS: nystatin 15 GM powder TP SCH ×3 (08:04→21:00)
[2018-01-08] MEDS: LACTOSE-FREE FOOD 237ML (BOOST) PO SCH ×3 (08:04→18:00)
[2018-01-08 10:00] VITALS: BP 123/42
[2018-01-08] MEDS: lurasidone 60mg tablet PO SCH ×2 (10:18→20:42)
[2018-01-08 18:00] VITALS: BP 140/53
[2018-01-08] MEDS: atorvastatin 10mg tablet PO SCH (20:42)
[2018-01-08] MEDS: polyethylene glycol 3350 17gm powd pack PO SCH (20:42)
[2018-01-08] MEDS: sennosides 8.6mg tablet PO SCH (20:42)
[2018-01-08] MEDS: polyvinyl alcohol ophthalmic drops 15ml bottle EACHEYE PRN (20:43)
[2018-01-08] MEDS: temazepam 15mg capsule PO PRN (20:51)
[2018-01-08 22:20] VITALS: BP 151/52
[2018-01-09 06:00] VITALS: BP 142/47
[2018-01-09] MEDS: sertraline 25mg tablet PO SCH (08:29)
[2018-01-09] MEDS: ascorbic acid 500mg tablet PO SCH ×2 (08:29→19:56)
[2018-01-09] MEDS: QUEtiapine 25mg tablet PO SCH ×2 (08:29→19:55)
[2018-01-09] MEDS: propranolol 10mg tablet PO SCH (08:29)
[2018-01-09] MEDS: calcium carbonate 500mg tablet PO SCH ×2 (08:29→19:55)
[2018-01-09] MEDS: ferrous sulfate 325mg tablet PO SCH (08:29)
[2018-01-09] MEDS: pyridoxine 50mg tablet PO SCH ×2 (08:29→19:56)
[2018-01-09] MEDS: docusate sod 100mg capsule PO SCH ×2 (08:29→19:55)
[2018-01-09] MEDS: levoTHYROXINE 100mcg tablet PO SCH (08:29)
[2018-01-09] MEDS: benztropine 1mg tablet PO SCH ×2 (08:29→19:55)
[2018-01-09] MEDS: famotidine 20mg tablet PO SCH (08:29)
[2018-01-09] MEDS: heparin, porcine 5000 units/ml vial SQ SCH ×2 (08:30→19:55)
[2018-01-09] MEDS: vitamin D (cholecalciferol) 1,000 unit tablet PO SCH (08:30)
[2018-01-09] MEDS: lurasidone 60mg tablet PO SCH ×2 (08:30→19:55)
[2018-01-09] MEDS: LACTOSE-FREE FOOD 237ML (BOOST) PO SCH ×3 (08:30→18:36)
[2018-01-09] MEDS: clonazePAM 0.5mg tablet PO SCH ×2 (08:30→19:55)
[2018-01-09] MEDS: aspirin 81mg tab.chew PO SCH (08:31)
[2018-01-09] MEDS: nystatin 15 GM powder TP SCH ×3 (08:31→19:51)
[2018-01-09] MEDS: azelastine Nasal Spray bottle NS SCH ×2 (08:41→19:56)
[2018-01-09 10:00] VITALS: BP 165/59
[2018-01-09 18:39] VITALS: BP 111/63
[2018-01-09] MEDS: polyethylene glycol 3350 17gm powd pack PO SCH (19:54)
[2018-01-09] MEDS: sennosides 8.6mg tablet PO SCH (19:55)
[2018-01-09] MEDS: atorvastatin 10mg tablet PO SCH (19:56)
[2018-01-09 21:00] VITALS: BP 138/52
[2018-01-10 06:00] VITALS: BP 123/44
[2018-01-10] MEDS: azelastine Nasal Spray bottle NS SCH ×2 (08:00→19:32)
[2018-01-10] MEDS: LACTOSE-FREE FOOD 237ML (BOOST) PO SCH ×3 (08:00→18:52)
[2018-01-10 10:00] VITALS: BP 144/53
[2018-01-10] MEDS: ascorbic acid 500mg tablet PO SCH ×2 (10:21→19:32)
[2018-01-10] MEDS: ferrous sulfate 325mg tablet PO SCH (10:22)
[2018-01-10] MEDS: pyridoxine 50mg tablet PO SCH ×2 (10:22→19:32)
[2018-01-10] MEDS: docusate sod 100mg capsule PO SCH ×2 (10:22→19:32)
[2018-01-10] MEDS: vitamin D (cholecalciferol) 1,000 unit tablet PO SCH (10:22)
[2018-01-10] MEDS: aspirin 81mg tab.chew PO SCH (10:23)
[2018-01-10] MEDS: calcium carbonate 500mg tablet PO SCH ×2 (10:23→19:32)
[2018-01-10] MEDS: benztropine 1mg tablet PO SCH ×2 (10:23→19:32)
[2018-01-10] MEDS: famotidine 20mg tablet PO SCH (10:23)
[2018-01-10] MEDS: QUEtiapine 25mg tablet PO SCH ×2 (10:23→19:32)
[2018-01-10] MEDS: levoTHYROXINE 100mcg tablet PO SCH (10:23)
[2018-01-10] MEDS: propranolol 10mg tablet PO SCH (10:23)
[2018-01-10] MEDS: clonazePAM 0.5mg tablet PO SCH ×2 (10:23→22:07)
[2018-01-10] MEDS: sertraline 25mg tablet PO SCH (10:23)
[2018-01-10] MEDS: heparin, porcine 5000 units/ml vial SQ SCH ×2 (10:25→19:47)
[2018-01-10] MEDS: nystatin 15 GM powder TP SCH ×3 (10:26→19:31)
[2018-01-10] MEDS: lurasidone 60mg tablet PO SCH ×2 (10:36→19:32)
[2018-01-10 18:30] VITALS: BP 129/47
[2018-01-10] MEDS: sennosides 8.6mg tablet PO SCH (19:31)
[2018-01-10] MEDS: atorvastatin 10mg tablet PO SCH (19:32)
[2018-01-10] MEDS: polyethylene glycol 3350 17gm powd pack PO SCH (19:32)
[2018-01-10 22:00] VITALS: BP 152/52
[2018-01-11 06:00] VITALS: BP 139/54
[2018-01-11] MEDS: LACTOSE-FREE FOOD 237ML (BOOST) PO SCH ×3 (08:00→19:57)
[2018-01-11] MEDS: azelastine Nasal Spray bottle NS SCH ×2 (08:00→19:50)
[2018-01-11] MEDS: lurasidone 60mg tablet PO SCH ×2 (09:41→19:50)
[2018-01-11] MEDS: propranolol 10mg tablet PO SCH (09:42)
[2018-01-11] MEDS: sertraline 25mg tablet PO SCH (09:42)
[2018-01-11] MEDS: QUEtiapine 25mg tablet PO SCH ×2 (09:42→19:54)
[2018-01-11] MEDS: ascorbic acid 500mg tablet PO SCH ×2 (09:42→19:50)
[2018-01-11] MEDS: levoTHYROXINE 100mcg tablet PO SCH (09:42)
[2018-01-11] MEDS: pyridoxine 50mg tablet PO SCH ×2 (09:42→19:54)
[2018-01-11] MEDS: vitamin D (cholecalciferol) 1,000 unit tablet PO SCH (09:43)
[2018-01-11] MEDS: famotidine 20mg tablet PO SCH (09:43)
[2018-01-11] MEDS: aspirin 81mg tab.chew PO SCH (09:43)
[2018-01-11] MEDS: benztropine 1mg tablet PO SCH ×2 (09:43→19:50)
[2018-01-11] MEDS: ferrous sulfate 325mg tablet PO SCH (09:43)
[2018-01-11] MEDS: calcium carbonate 500mg tablet PO SCH ×2 (09:43→19:50)
[2018-01-11] MEDS: docusate sod 100mg capsule PO SCH ×2 (09:43→19:50)
[2018-01-11] MEDS: clonazePAM 0.5mg tablet PO SCH ×2 (09:43→19:50)
[2018-01-11] MEDS: nystatin 15 GM powder TP SCH ×3 (09:44→19:55)
[2018-01-11] MEDS: heparin, porcine 5000 units/ml vial SQ SCH ×2 (09:44→19:50)
[2018-01-11 10:00] VITALS: BP 143/56
[2018-01-11] MEDS: OLANZapine 2.5MG tablet PO PRN (15:39)
[2018-01-11 18:30] VITALS: BP 132/57
[2018-01-11] MEDS: atorvastatin 10mg tablet PO SCH (19:50)
[2018-01-11] MEDS: sennosides 8.6mg tablet PO SCH (19:50)
[2018-01-11] MEDS: polyethylene glycol 3350 17gm powd pack PO SCH (19:51)
[2018-01-11] MEDS ORDERED: OLANZapine 2.5MG tablet PO SCH (20:00)
[2018-01-11 22:00] VITALS: BP 160/55
[2018-01-12 06:00] VITALS: BP 134/46
[2018-01-12] MEDS: azelastine Nasal Spray bottle NS SCH ×2 (08:00→20:00)
[2018-01-12] MEDS: LACTOSE-FREE FOOD 237ML (BOOST) PO SCH ×3 (08:00→18:00)
[2018-01-12] MEDS: docusate sod 100mg capsule PO SCH ×2 (10:13→20:26)
[2018-01-12] MEDS: famotidine 20mg tablet PO SCH (10:13)
[2018-01-12] MEDS: lurasidone 60mg tablet PO SCH ×2 (10:13→20:26)
[2018-01-12] MEDS: ferrous sulfate 325mg tablet PO SCH (10:13)
[2018-01-12] MEDS: calcium carbonate 500mg tablet PO SCH ×2 (10:14→20:27)
[2018-01-12] MEDS: sertraline 25mg tablet PO SCH (10:14)
[2018-01-12] MEDS: propranolol 10mg tablet PO SCH (10:14)
[2018-01-12] MEDS: vitamin D (cholecalciferol) 1,000 unit tablet PO SCH (10:14)
[2018-01-12] MEDS: levoTHYROXINE 100mcg tablet PO SCH (10:14)
[2018-01-12] MEDS: clonazePAM 0.5mg tablet PO SCH ×2 (10:14→20:26)
[2018-01-12] MEDS: QUEtiapine 25mg tablet PO SCH ×2 (10:14→20:27)
[2018-01-12] MEDS: pyridoxine 50mg tablet PO SCH ×2 (10:14→20:28)
[2018-01-12] MEDS: benztropine 1mg tablet PO SCH ×2 (10:14→20:25)
[2018-01-12] MEDS: aspirin 81mg tab.chew PO SCH (10:15)
[2018-01-12] MEDS: ascorbic acid 500mg tablet PO SCH ×2 (10:15→20:28)
[2018-01-12] MEDS: heparin, porcine 5000 units/ml vial SQ SCH ×2 (10:16→20:24)
[2018-01-12] MEDS: nystatin 15 GM powder TP SCH ×3 (10:16→21:00)
[2018-01-12] MEDS: OLANZapine 2.5MG tablet PO PRN (11:24)
[2018-01-12] MEDS: acetaminophen 325mg tablet PO PRN (11:48)
[2018-01-12 18:00] VITALS: BP 159/49
[2018-01-12] MEDS: atorvastatin 10mg tablet PO SCH (20:24)
[2018-01-12] MEDS: sennosides 8.6mg tablet PO SCH (20:25)
[2018-01-12] MEDS: polyethylene glycol 3350 17gm powd pack PO SCH (20:33)
[2018-01-12 22:00] VITALS: BP 154/52
[2018-01-13 05:00] VITALS: BP 146/59
[2018-01-13] MEDS: nystatin 15 GM powder TP SCH ×3 (08:00→19:42)
[2018-01-13] MEDS: propranolol 10mg tablet PO SCH (08:00)
[2018-01-13 10:00] VITALS: BP 104/82
[2018-01-13] MEDS: QUEtiapine 25mg tablet PO SCH ×2 (10:10→19:42)
[2018-01-13] MEDS: LACTOSE-FREE FOOD 237ML (BOOST) PO SCH ×3 (10:10→19:42)
[2018-01-13] MEDS: clonazePAM 0.5mg tablet PO SCH ×2 (10:10→19:41)
[2018-01-13] MEDS: aspirin 81mg tab.chew PO SCH (10:10)
[2018-01-13] MEDS: famotidine 20mg tablet PO SCH (10:10)
[2018-01-13] MEDS: pyridoxine 50mg tablet PO SCH ×2 (10:10→19:41)
[2018-01-13] MEDS: ferrous sulfate 325mg tablet PO SCH (10:11)
[2018-01-13] MEDS: ascorbic acid 500mg tablet PO SCH ×2 (10:11→19:41)
[2018-01-13] MEDS: lurasidone 60mg tablet PO SCH ×2 (10:11→19:41)
[2018-01-13] MEDS: docusate sod 100mg capsule PO SCH ×2 (10:11→19:42)
[2018-01-13] MEDS: sertraline 25mg tablet PO SCH (10:11)
[2018-01-13] MEDS: calcium carbonate 500mg tablet PO SCH ×2 (10:11→19:41)
[2018-01-13] MEDS: vitamin D (cholecalciferol) 1,000 unit tablet PO SCH (10:12)
[2018-01-13] MEDS: heparin, porcine 5000 units/ml vial SQ SCH ×2 (10:12→19:43)
[2018-01-13] MEDS: levoTHYROXINE 100mcg tablet PO SCH (10:13)
[2018-01-13] MEDS: azelastine Nasal Spray bottle NS SCH ×2 (10:13→19:41)
[2018-01-13] MEDS: benztropine 1mg tablet PO SCH ×2 (10:13→19:41)
[2018-01-13] MEDS: acetaminophen 325mg tablet PO PRN (12:34)
[2018-01-13] MEDS ORDERED: vitamin D (cholecalciferol) 1,000 unit tablet PO ONE (19:30)
[2018-01-13] MEDS: polyethylene glycol 3350 17gm powd pack PO SCH (19:40)
[2018-01-13] MEDS: sennosides 8.6mg tablet PO SCH (19:41)
[2018-01-13] MEDS: atorvastatin 10mg tablet PO SCH (19:41)
[2018-01-13 20:00] VITALS: BP 140/71
[2018-01-13 22:00] VITALS: BP 142/58
[2018-01-13] MEDS: OLANZapine 2.5MG tablet PO PRN (23:22)
[2018-01-13] MEDS: temazepam 15mg capsule PO PRN (23:22)
[2018-01-14 06:00] VITALS: BP 121/47
[2018-01-14] MEDS: vitamin D (cholecalciferol) 1,000 unit tablet PO SCH (08:00)
[2018-01-14 10:00] VITALS: BP 134/65
[2018-01-14] MEDS: QUEtiapine 25mg tablet PO SCH ×2 (10:29→19:41)
[2018-01-14] MEDS: ascorbic acid 500mg tablet PO SCH ×2 (10:29→19:40)
[2018-01-14] MEDS: pyridoxine 50mg tablet PO SCH ×2 (10:29→19:41)
[2018-01-14] MEDS: azelastine Nasal Spray bottle NS SCH ×2 (10:29→19:41)
[2018-01-14] MEDS: levoTHYROXINE 100mcg tablet PO SCH (10:29)
[2018-01-14] MEDS: benztropine 1mg tablet PO SCH ×2 (10:29→19:41)
[2018-01-14] MEDS: calcium carbonate 500mg tablet PO SCH ×2 (10:30→19:40)
[2018-01-14] MEDS: docusate sod 100mg capsule PO SCH ×2 (10:30→19:41)
[2018-01-14] MEDS: famotidine 20mg tablet PO SCH (10:30)
[2018-01-14] MEDS: atorvastatin 10mg tablet PO SCH ×2 (10:30→19:40)
[2018-01-14] MEDS: clonazePAM 0.5mg tablet PO SCH ×2 (10:30→19:41)
[2018-01-14] MEDS: ferrous sulfate 325mg tablet PO SCH (10:30)
[2018-01-14] MEDS: aspirin 81mg tab.chew PO SCH (10:30)
[2018-01-14] MEDS: sertraline 25mg tablet PO SCH (10:30)
[2018-01-14] MEDS: lurasidone 60mg tablet PO SCH ×2 (10:30→19:41)
[2018-01-14] MEDS: propranolol 10mg tablet PO SCH (10:31)
[2018-01-14] MEDS: nystatin 15 GM powder TP SCH ×3 (10:32→19:42)
[2018-01-14] MEDS: heparin, porcine 5000 units/ml vial SQ SCH ×2 (10:32→19:45)
[2018-01-14] MEDS: LACTOSE-FREE FOOD 237ML (BOOST) PO SCH ×3 (10:33→19:04)
[2018-01-14] MEDS: acetaminophen 325mg tablet PO PRN (10:39)
[2018-01-14 18:00] VITALS: BP 146/60
[2018-01-14 18:57] LABS: BASOPHILS % (AUTO) 0.3 % (0-1); EOSINOPHILS # (AUTO) 0.5 X10'3 (0-0.9); EOSINOPHILS % (AUTO) 5.5 % (0-6); HEMATOCRIT 33.2 % (35.0-45.0); HEMOGLOBIN 11.3 g/dl (12.0-16.0); LYMPHOCYTES # (AUTO) 1.2 X10'3 (1.1-4.8); MEAN CORPUSCULAR HGB CONC 34.1 % (33.0-36.5); MEAN PLATELET VOLUME 8.1 FL (7.4-10.4); MONOCYTES # (AUTO) 0.8 X10'3 (0-0.9); MONOCYTES % (AUTO) 9.6 % (2-12); NEUTROPHILS # (AUTO) 6.1 X10'3 (1.8-7.7); NEUTROPHILS % (AUTO) 70.6 % (42-75); PLATELET COUNT 224 X10'3 (140-440); RED BLOOD COUNT 3.53 X10'6 (4.20-5.60); RED CELL DISTRIBUTION WIDTH 15.6 % (11.5-14.5); WHITE BLOOD COUNT 8.6 X10'3 (4.5-11.0)
[2018-01-14 19:00] LABS: RED BLOOD COUNT 3.51 X10'6 (4.20-5.60); RETICULOCYTE % (AUTO) 3.9 % (0.5-1.5)
[2018-01-14 19:11] LABS: ANION GAP 9 (8-16); BILIRUBIN,TOTAL 0.4 MG/DL (0.1-1.0); BLOOD UREA NITROGEN 35 MG/DL (7-18); BUN/CREATININE RATIO 24.3 (6.6-38.0); CALCIUM 10.4 MG/DL (8.5-10.1); CHLORIDE 105 MMOL/L (99-107); CREATININE 1.44 MG/DL (0.40-0.90); GLUCOSE 96 MG/DL (70-104); POTASSIUM 4.3 MMOL/L (3.5-5.1); SODIUM 140 MMOL/L (135-145); TOTAL CARBON DIOXIDE 26.3 MMOL/L (24-32); TOTAL PROTEIN 6.7 G/DL (6.4-8.2); eGFR 35 ML/MIN
[2018-01-14 19:12] LABS: ALANINE AMINOTRANSFERASE 33 U/L (12-78); ALBUMIN 3.5 G/DL (3.4-5.0); ALBUMIN/GLOBULIN RATIO 1.1 (1.1-1.5); ALKALINE PHOSPHATASE 85 IU/L (46-116); ASPARTATE AMINO TRANSFERASE 15 U/L (10-37)
[2018-01-14] MEDS: sennosides 8.6mg tablet PO SCH (19:40)
[2018-01-14] MEDS: polyethylene glycol 3350 17gm powd pack PO SCH (19:41)
[2018-01-14 20:06] LABS: % IRON SATURATION 21 % (11-46); IRON 59 UG/DL (49-151); TOTAL IRON BINDING CAPACITY 284 UG/DL (259-388)
[2018-01-14] MEDS ORDERED: ziprasidone IM 20mg inj **IM only IM ONE (22:25)
[2018-01-15] MEDS: acetaminophen 325mg tablet PO PRN (01:09)
[2018-01-15] MEDS: LACTOSE-FREE FOOD 237ML (BOOST) PO SCH ×3 (08:00→18:52)
[2018-01-15] MEDS ORDERED: ziprasidone IM 20mg inj **IM only IM SCH (08:00)
[2018-01-15] MEDS ORDERED: normal saline 1000ml 1,000 ML IV ONE (08:10)
[2018-01-15 10:00] VITALS: BP 131/74
[2018-01-15] MEDS: ziprasidone IM 20mg inj **IM only IM PRN (10:05)
[2018-01-15] MEDS: azelastine Nasal Spray bottle NS SCH ×2 (11:50→19:35)
[2018-01-15] MEDS: levoTHYROXINE 100mcg tablet PO SCH (11:50)
[2018-01-15] MEDS: aspirin 81mg tab.chew PO SCH (11:50)
[2018-01-15] MEDS: benztropine 1mg tablet PO SCH ×2 (11:51→19:34)
[2018-01-15] MEDS: docusate sod 100mg capsule PO SCH ×2 (11:51→19:34)
[2018-01-15] MEDS: lurasidone 60mg tablet PO SCH ×2 (11:51→19:34)
[2018-01-15] MEDS: famotidine 20mg tablet PO SCH (11:51)
[2018-01-15] MEDS: clonazePAM 0.5mg tablet PO SCH ×2 (11:51→19:34)
[2018-01-15] MEDS: calcium carbonate 500mg tablet PO SCH ×2 (11:51→19:35)
[2018-01-15] MEDS: propranolol 10mg tablet PO SCH (11:51)
[2018-01-15] MEDS: ferrous sulfate 325mg tablet PO SCH (11:51)
[2018-01-15] MEDS: vitamin D (cholecalciferol) 1,000 unit tablet PO SCH (11:52)
[2018-01-15] MEDS: heparin, porcine 5000 units/ml vial SQ SCH ×2 (11:52→19:35)
[2018-01-15] MEDS: ascorbic acid 500mg tablet PO SCH ×2 (11:52→19:34)
[2018-01-15] MEDS: nystatin 15 GM powder TP SCH ×3 (11:53→19:33)
[2018-01-15] MEDS: pyridoxine 50mg tablet PO SCH ×2 (11:56→19:34)
[2018-01-15] MEDS: divalproex sodium 250mg tablet PO SCH ×2 (13:27→17:38)
[2018-01-15 18:00] VITALS: BP 160/61
[2018-01-15] MEDS: temazepam 15mg capsule PO PRN (19:34)
[2018-01-15] MEDS: sennosides 8.6mg tablet PO SCH (19:35)
[2018-01-15] MEDS: atorvastatin 10mg tablet PO SCH (19:35)
[2018-01-15] MEDS: polyethylene glycol 3350 17gm powd pack PO SCH (19:36)
[2018-01-15 22:00] VITALS: BP 150/42
[2018-01-16 05:00] VITALS: BP 125/42
[2018-01-16] MEDS: docusate sod 100mg capsule PO SCH ×2 (08:00→20:57)
[2018-01-16] MEDS: nystatin 15 GM powder TP SCH (08:00)
[2018-01-16] MEDS: ascorbic acid 500mg tablet PO SCH (08:00)
[2018-01-16] MEDS: LACTOSE-FREE FOOD 237ML (BOOST) PO SCH ×3 (08:00→18:35)
[2018-01-16] MEDS: vitamin D (cholecalciferol) 1,000 unit tablet PO SCH (08:00)
[2018-01-16] MEDS: benztropine 1mg tablet PO SCH ×2 (09:55→20:56)
[2018-01-16] MEDS: pyridoxine 50mg tablet PO SCH ×2 (09:55→20:00)
[2018-01-16] MEDS: azelastine Nasal Spray bottle NS SCH ×2 (09:55→20:00)
[2018-01-16] MEDS: levoTHYROXINE 100mcg tablet PO SCH (09:55)
[2018-01-16] MEDS: propranolol 10mg tablet PO SCH (09:55)
[2018-01-16] MEDS: heparin, porcine 5000 units/ml vial SQ SCH ×2 (09:55→20:58)
[2018-01-16] MEDS: lurasidone 60mg tablet PO SCH ×2 (09:56→20:57)
[2018-01-16] MEDS: ferrous sulfate 325mg tablet PO SCH (09:56)
[2018-01-16] MEDS: famotidine 20mg tablet PO SCH (09:56)
[2018-01-16] MEDS: calcium carbonate 500mg tablet PO SCH ×2 (09:56→20:58)
[2018-01-16] MEDS: aspirin 81mg tab.chew PO SCH (09:56)
[2018-01-16] MEDS: divalproex sodium 250mg tablet PO SCH ×4 (09:56→18:35)
[2018-01-16] MEDS: clonazePAM 0.5mg tablet PO SCH ×2 (09:56→20:55)
[2018-01-16 10:00] VITALS: BP 131/45
[2018-01-16] MEDS: ziprasidone 20mg capsule PO PRN (14:51)
[2018-01-16] MEDS: ziprasidone IM 20mg inj **IM only IM PRN (15:38)
[2018-01-16] MEDS: atorvastatin 10mg tablet PO SCH (20:58)
[2018-01-16] MEDS: sennosides 8.6mg tablet PO SCH (21:00)
[2018-01-16] MEDS: polyethylene glycol 3350 17gm powd pack PO SCH (21:21)
[2018-01-16 22:00] VITALS: BP 171/56
[2018-01-17 05:00] VITALS: BP 132/48
[2018-01-17] MEDS: levoTHYROXINE 100mcg tablet PO SCH (07:57)
[2018-01-17] MEDS: pyridoxine 50mg tablet PO SCH ×2 (07:58→21:48)
[2018-01-17] MEDS: clonazePAM 0.5mg tablet PO SCH ×2 (07:58→21:49)
[2018-01-17] MEDS: aspirin 81mg tab.chew PO SCH (07:58)
[2018-01-17] MEDS: calcium carbonate 500mg tablet PO SCH ×2 (07:58→21:49)
[2018-01-17] MEDS: ferrous sulfate 325mg tablet PO SCH (07:58)
[2018-01-17] MEDS: famotidine 20mg tablet PO SCH (07:58)
[2018-01-17] MEDS: propranolol 10mg tablet PO SCH (07:58)
[2018-01-17] MEDS: benztropine 1mg tablet PO SCH ×2 (07:58→21:49)
[2018-01-17] MEDS: docusate sod 100mg capsule PO SCH ×2 (07:58→21:49)
[2018-01-17] MEDS: vitamin D (cholecalciferol) 1,000 unit tablet PO SCH (07:58)
[2018-01-17] MEDS: azelastine Nasal Spray bottle NS SCH ×2 (07:58→21:55)
[2018-01-17] MEDS: lurasidone 60mg tablet PO SCH ×2 (07:58→21:49)
[2018-01-17] MEDS: heparin, porcine 5000 units/ml vial SQ SCH ×2 (07:59→21:48)
[2018-01-17] MEDS: divalproex sodium 250mg tablet PO SCH ×3 (08:07→17:54)
[2018-01-17] MEDS: LACTOSE-FREE FOOD 237ML (BOOST) PO SCH ×3 (08:07→18:15)
[2018-01-17 10:00] VITALS: BP 137/48
[2018-01-17 18:15] VITALS: BP 137/66
[2018-01-17 18:30] VITALS: BP 137/66
[2018-01-17] MEDS: polyethylene glycol 3350 17gm powd pack PO SCH (21:00)
[2018-01-17] MEDS: sennosides 8.6mg tablet PO SCH (21:00)
[2018-01-17] MEDS: atorvastatin 10mg tablet PO SCH (21:49)
[2018-01-17 22:00] VITALS: BP 143/55
[2018-01-17] MEDS: temazepam 15mg capsule PO PRN (23:25)
[2018-01-18 05:30] VITALS: BP 131/43
[2018-01-18 05:54] LABS: BASOPHILS % (AUTO) 0.5 % (0-1); EOSINOPHILS # (AUTO) 0.3 X10'3 (0-0.9); EOSINOPHILS % (AUTO) 5.7 % (0-6); HEMATOCRIT 29.3 % (35.0-45.0); HEMOGLOBIN 10.1 g/dl (12.0-16.0); LYMPHOCYTES # (AUTO) 1.1 X10'3 (1.1-4.8); LYMPHOCYTES % (AUTO) 22.1 % (21-51); MEAN CORPUSCULAR HEMOGLOBIN 32.1 PG (27.0-31.0); MEAN CORPUSCULAR HGB CONC 34.3 % (33.0-36.5); MEAN CORPUSCULAR VOLUME 93.5 FL (78-98); MEAN PLATELET VOLUME 7.9 FL (7.4-10.4); MONOCYTES # (AUTO) 0.6 X10'3 (0-0.9); MONOCYTES % (AUTO) 10.8 % (2-12); NEUTROPHILS # (AUTO) 3.1 X10'3 (1.8-7.7); NEUTROPHILS % (AUTO) 60.9 % (42-75); PLATELET COUNT 214 X10'3 (140-440); RED BLOOD COUNT 3.13 X10'6 (4.20-5.60); RED CELL DISTRIBUTION WIDTH 15.6 % (11.5-14.5); WHITE BLOOD COUNT 5.1 X10'3 (4.5-11.0)
[2018-01-18 06:06] LABS: ALANINE AMINOTRANSFERASE 25 U/L (12-78); ALBUMIN 2.9 G/DL (3.4-5.0); ALBUMIN/GLOBULIN RATIO 1.1 (1.1-1.5); ALKALINE PHOSPHATASE 67 IU/L (46-116); ANION GAP 5 (8-16); ASPARTATE AMINO TRANSFERASE 13 U/L (10-37); BILIRUBIN,TOTAL 0.4 MG/DL (0.1-1.0); BLOOD UREA NITROGEN 32 MG/DL (7-18); BUN/CREATININE RATIO 24.8 (6.6-38.0); CALCIUM 9.8 MG/DL (8.5-10.1); CHLORIDE 107 MMOL/L (99-107); CREATININE 1.29 MG/DL (0.40-0.90); GLUCOSE 93 MG/DL (70-104); POTASSIUM 4.3 MMOL/L (3.5-5.1); SODIUM 141 MMOL/L (135-145); TOTAL CARBON DIOXIDE 28.9 MMOL/L (24-32); TOTAL PROTEIN 5.5 G/DL (6.4-8.2); eGFR 40 ML/MIN
[2018-01-18] MEDS: azelastine Nasal Spray bottle NS SCH ×2 (07:40→20:00)
[2018-01-18] MEDS: levoTHYROXINE 100mcg tablet PO SCH (07:40)
[2018-01-18] MEDS: propranolol 10mg tablet PO SCH (07:41)
[2018-01-18] MEDS: calcium carbonate 500mg tablet PO SCH ×2 (07:41→20:05)
[2018-01-18] MEDS: pyridoxine 50mg tablet PO SCH ×2 (07:41→20:05)
[2018-01-18] MEDS: lurasidone 60mg tablet PO SCH ×2 (07:41→20:05)
[2018-01-18] MEDS: clonazePAM 0.5mg tablet PO SCH ×2 (07:41→20:05)
[2018-01-18] MEDS: famotidine 20mg tablet PO SCH (07:41)
[2018-01-18] MEDS: docusate sod 100mg capsule PO SCH ×2 (07:41→20:05)
[2018-01-18] MEDS: benztropine 1mg tablet PO SCH ×2 (07:41→20:05)
[2018-01-18] MEDS: aspirin 81mg tab.chew PO SCH (07:41)
[2018-01-18] MEDS: ferrous sulfate 325mg tablet PO SCH (07:41)
[2018-01-18] MEDS: vitamin D (cholecalciferol) 1,000 unit tablet PO SCH (07:41)
[2018-01-18] MEDS: heparin, porcine 5000 units/ml vial SQ SCH ×2 (07:42→20:04)
[2018-01-18] MEDS: divalproex sodium 250mg tablet PO SCH ×3 (07:42→17:41)
[2018-01-18] MEDS: LACTOSE-FREE FOOD 237ML (BOOST) PO SCH ×3 (07:50→18:00)
[2018-01-18 10:00] VITALS: BP 178/61
[2018-01-18] MEDS ORDERED: ZIPR20CA12 PO (14:03)
[2018-01-18] MEDS ORDERED: LACT-28 PO (14:03)
[2018-01-18] MEDS ORDERED: PROP10TA10 PO (14:06)
[2018-01-18 18:00] VITALS: BP 130/52
[2018-01-18 18:22] LABS: CLARITY,URINE CLEAR (Clear); COLOR,URINE YELLOW (Yellow); GLUCOSE, URINE NEGATIVE (Neg); KETONES,URINE NEGATIVE (Neg); LEUKOCYTE ESTERASE ,URINE NEGATIVE (Neg); NITRITES, URINE NEGATIVE (Neg); OCCULT BLOOD,URINE NEGATIVE (Neg); PROTEIN,URINE NEGATIVE (Neg); UROBILINOGEN,URINE 0.2 E.U/dL (0.2-1.0)
[2018-01-18 18:27] LABS: UA COLLECTION TYPE CLN CATCH MIDSTREAM
[2018-01-18] MEDS: sennosides 8.6mg tablet PO SCH (20:05)
[2018-01-18] MEDS: atorvastatin 10mg tablet PO SCH (20:05)
[2018-01-18] MEDS: polyethylene glycol 3350 17gm powd pack PO SCH (20:12)
[2018-01-18 22:00] VITALS: BP 146/50
[2018-01-19 06:00] VITALS: BP 127/48
[2018-01-19] MEDS: aspirin 81mg tab.chew PO SCH (08:05)
[2018-01-19] MEDS: levoTHYROXINE 100mcg tablet PO SCH (08:05)
[2018-01-19] MEDS: azelastine Nasal Spray bottle NS SCH ×2 (08:05→19:33)
[2018-01-19] MEDS: divalproex sodium 250mg tablet PO SCH ×3 (08:06→17:35)
[2018-01-19] MEDS: benztropine 1mg tablet PO SCH ×2 (08:06→19:31)
[2018-01-19] MEDS: lurasidone 60mg tablet PO SCH ×2 (08:06→19:33)
[2018-01-19] MEDS: vitamin D (cholecalciferol) 1,000 unit tablet PO SCH (08:06)
[2018-01-19] MEDS: pyridoxine 50mg tablet PO SCH ×2 (08:06→19:31)
[2018-01-19] MEDS: docusate sod 100mg capsule PO SCH ×2 (08:06→19:32)
[2018-01-19] MEDS: calcium carbonate 500mg tablet PO SCH ×2 (08:06→19:31)
[2018-01-19] MEDS: propranolol 10mg tablet PO SCH (08:06)
[2018-01-19] MEDS: heparin, porcine 5000 units/ml vial SQ SCH ×2 (08:06→19:32)
[2018-01-19] MEDS: ferrous sulfate 325mg tablet PO SCH (08:06)
[2018-01-19] MEDS: clonazePAM 0.5mg tablet PO SCH ×2 (08:06→19:32)
[2018-01-19] MEDS: famotidine 20mg tablet PO SCH (08:06)
[2018-01-19 08:11] VITALS: BP 128/55
[2018-01-19] MEDS: LACTOSE-FREE FOOD 237ML (BOOST) PO SCH ×3 (08:36→18:00)
[2018-01-19 08:40] LABS: BASOPHILS % (AUTO) 0.2 % (0-1); EOSINOPHILS # (AUTO) 0.3 X10'3 (0-0.9); EOSINOPHILS % (AUTO) 5.7 % (0-6); HEMATOCRIT 32.8 % (35.0-45.0); HEMOGLOBIN 11.6 g/dl (12.0-16.0); LYMPHOCYTES # (AUTO) 1.1 X10'3 (1.1-4.8); LYMPHOCYTES % (AUTO) 18.9 % (21-51); MEAN CORPUSCULAR HEMOGLOBIN 32.7 PG (27.0-31.0); MEAN CORPUSCULAR HGB CONC 35.4 % (33.0-36.5); MEAN CORPUSCULAR VOLUME 92.4 FL (78-98); MEAN PLATELET VOLUME 7.7 FL (7.4-10.4); MONOCYTES # (AUTO) 0.6 X10'3 (0-0.9); MONOCYTES % (AUTO) 10.4 % (2-12); NEUTROPHILS # (AUTO) 3.9 X10'3 (1.8-7.7); NEUTROPHILS % (AUTO) 64.8 % (42-75); PLATELET COUNT 219 X10'3 (140-440); RED BLOOD COUNT 3.54 X10'6 (4.20-5.60); RED CELL DISTRIBUTION WIDTH 15.4 % (11.5-14.5)
[2018-01-19 09:03] LABS: ALANINE AMINOTRANSFERASE 23 U/L (12-78); ALBUMIN 3.2 G/DL (3.4-5.0); ALBUMIN/GLOBULIN RATIO 1.1 (1.1-1.5); ALKALINE PHOSPHATASE 77 IU/L (46-116); ANION GAP 10 (8-16); ASPARTATE AMINO TRANSFERASE 12 U/L (10-37); BILIRUBIN,TOTAL 0.5 MG/DL (0.1-1.0); BLOOD UREA NITROGEN 25 MG/DL (7-18); BUN/CREATININE RATIO 20.7 (6.6-38.0); CALCIUM 10.5 MG/DL (8.5-10.1); CHLORIDE 106 MMOL/L (99-107); CREATININE 1.21 MG/DL (0.40-0.90); GLUCOSE 97 MG/DL (70-104); POTASSIUM 4.5 MMOL/L (3.5-5.1); SODIUM 143 MMOL/L (135-145); TOTAL CARBON DIOXIDE 27.5 MMOL/L (24-32); TOTAL PROTEIN 6.2 G/DL (6.4-8.2); eGFR 43 ML/MIN
[2018-01-19 10:00] VITALS: BP 159/63
[2018-01-19 17:00] VITALS: BP 129/41
[2018-01-19] MEDS: sennosides 8.6mg tablet PO SCH (19:31)
[2018-01-19] MEDS: atorvastatin 10mg tablet PO SCH (19:31)
[2018-01-19] MEDS: polyethylene glycol 3350 17gm powd pack PO SCH (21:00)
[2018-01-19 22:00] VITALS: BP 146/56
[2018-01-19] MEDS: temazepam 15mg capsule PO PRN (23:06)
[2018-01-19] MEDS: mag hydrox/Alum hydrox/simeth 30ml oral suspension PO PRN (23:06)
[2018-01-20 05:58] LABS: BASOPHILS # (AUTO) 0.1 X10'3 (0-0.2); EOSINOPHILS # (AUTO) 0.3 X10'3 (0-0.9); EOSINOPHILS % (AUTO) 5.3 % (0-6); HEMATOCRIT 29.4 % (35.0-45.0); HEMOGLOBIN 10.2 g/dl (12.0-16.0); LYMPHOCYTES # (AUTO) 1.4 X10'3 (1.1-4.8); LYMPHOCYTES % (AUTO) 23.8 % (21-51); MEAN CORPUSCULAR HEMOGLOBIN 32.4 PG (27.0-31.0); MEAN CORPUSCULAR HGB CONC 34.7 % (33.0-36.5); MEAN CORPUSCULAR VOLUME 93.3 FL (78-98); MEAN PLATELET VOLUME 8.3 FL (7.4-10.4); MONOCYTES # (AUTO) 0.7 X10'3 (0-0.9); MONOCYTES % (AUTO) 11.4 % (2-12); NEUTROPHILS # (AUTO) 3.3 X10'3 (1.8-7.7); NEUTROPHILS % (AUTO) 58.5 % (42-75); PLATELET COUNT 198 X10'3 (140-440); RED BLOOD COUNT 3.15 X10'6 (4.20-5.60); RED CELL DISTRIBUTION WIDTH 15.1 % (11.5-14.5); WHITE BLOOD COUNT 5.7 X10'3 (4.5-11.0)
[2018-01-20 06:02] VITALS: BP 126/42
[2018-01-20 07:32] LABS: ALANINE AMINOTRANSFERASE 22 U/L (12-78); ALBUMIN 2.9 G/DL (3.4-5.0); ALBUMIN/GLOBULIN RATIO 1.1 (1.1-1.5); ALKALINE PHOSPHATASE 64 IU/L (46-116); ANION GAP 5 (8-16); ASPARTATE AMINO TRANSFERASE 11 U/L (10-37); BILIRUBIN,TOTAL 0.4 MG/DL (0.1-1.0); BLOOD UREA NITROGEN 27 MG/DL (7-18); BUN/CREATININE RATIO 22.9 (6.6-38.0); CALCIUM 10.1 MG/DL (8.5-10.1); CHLORIDE 107 MMOL/L (99-107); CREATININE 1.18 MG/DL (0.40-0.90); GLUCOSE 87 MG/DL (70-104); POTASSIUM 4.6 MMOL/L (3.5-5.1); SODIUM 142 MMOL/L (135-145); TOTAL PROTEIN 5.6 G/DL (6.4-8.2); eGFR 45 ML/MIN
[2018-01-20 10:00] VITALS: BP 145/83
[2018-01-20] MEDS: heparin, porcine 5000 units/ml vial SQ SCH ×2 (10:00→20:51)
[2018-01-20] MEDS: clonazePAM 0.5mg tablet PO SCH ×2 (10:00→20:47)
[2018-01-20] MEDS: ferrous sulfate 325mg tablet PO SCH (10:00)
[2018-01-20] MEDS: lurasidone 60mg tablet PO SCH ×2 (10:00→20:49)
[2018-01-20] MEDS: calcium carbonate 500mg tablet PO SCH ×2 (10:00→20:47)
[2018-01-20] MEDS: famotidine 20mg tablet PO SCH (10:00)
[2018-01-20] MEDS: propranolol 10mg tablet PO SCH (10:00)
[2018-01-20] MEDS: docusate sod 100mg capsule PO SCH ×2 (10:00→20:46)
[2018-01-20] MEDS: levoTHYROXINE 100mcg tablet PO SCH (10:00)
[2018-01-20] MEDS: divalproex sodium 250mg tablet PO SCH ×3 (10:00→17:45)
[2018-01-20] MEDS: vitamin D (cholecalciferol) 1,000 unit tablet PO SCH (10:00)
[2018-01-20] MEDS: benztropine 1mg tablet PO SCH ×2 (10:00→20:46)
[2018-01-20] MEDS: aspirin 81mg tab.chew PO SCH (10:00)
[2018-01-20] MEDS: LACTOSE-FREE FOOD 237ML (BOOST) PO SCH ×3 (10:00→18:00)
[2018-01-20] MEDS: pyridoxine 50mg tablet PO SCH ×2 (10:00→20:49)
[2018-01-20] MEDS: azelastine Nasal Spray bottle NS SCH ×2 (10:32→20:00)
[2018-01-20 18:00] VITALS: BP 134/75
[2018-01-20] MEDS: ziprasidone IM 20mg inj **IM only IM PRN (20:41)
[2018-01-20] MEDS: atorvastatin 10mg tablet PO SCH (20:46)
[2018-01-20] MEDS: sennosides 8.6mg tablet PO SCH (20:46)
[2018-01-20] MEDS: temazepam 15mg capsule PO PRN (20:47)
[2018-01-20] MEDS: polyethylene glycol 3350 17gm powd pack PO SCH (20:51)
[2018-01-21 05:00] VITALS: BP 133/44
[2018-01-21 06:39] LABS: BASOPHILS % (AUTO) 0.5 % (0-1); EOSINOPHILS # (AUTO) 0.2 X10'3 (0-0.9); EOSINOPHILS % (AUTO) 5.2 % (0-6); HEMATOCRIT 31.4 % (35.0-45.0); HEMOGLOBIN 10.8 g/dl (12.0-16.0); LYMPHOCYTES # (AUTO) 1.1 X10'3 (1.1-4.8); MEAN CORPUSCULAR HEMOGLOBIN 32.4 PG (27.0-31.0); MEAN CORPUSCULAR HGB CONC 34.5 % (33.0-36.5); MEAN CORPUSCULAR VOLUME 94.1 FL (78-98); MEAN PLATELET VOLUME 7.7 FL (7.4-10.4); MONOCYTES # (AUTO) 0.5 X10'3 (0-0.9); MONOCYTES % (AUTO) 11.3 % (2-12); NEUTROPHILS # (AUTO) 2.5 X10'3 (1.8-7.7); PLATELET COUNT 202 X10'3 (140-440); RED BLOOD COUNT 3.34 X10'6 (4.20-5.60); RED CELL DISTRIBUTION WIDTH 15.2 % (11.5-14.5); WHITE BLOOD COUNT 4.4 X10'3 (4.5-11.0)
[2018-01-21 06:55] LABS: ALANINE AMINOTRANSFERASE 20 U/L (12-78); ALBUMIN 2.9 G/DL (3.4-5.0); ALBUMIN/GLOBULIN RATIO 1.1 (1.1-1.5); ALKALINE PHOSPHATASE 64 IU/L (46-116); ANION GAP 6 (8-16); ASPARTATE AMINO TRANSFERASE 9 U/L (10-37); BILIRUBIN,TOTAL 0.5 MG/DL (0.1-1.0); BLOOD UREA NITROGEN 25 MG/DL (7-18); BUN/CREATININE RATIO 22.7 (6.6-38.0); CHLORIDE 108 MMOL/L (99-107); GLUCOSE 85 MG/DL (70-104); POTASSIUM 4.1 MMOL/L (3.5-5.1); SODIUM 144 MMOL/L (135-145); TOTAL CARBON DIOXIDE 30.4 MMOL/L (24-32); TOTAL PROTEIN 5.5 G/DL (6.4-8.2); eGFR 48 ML/MIN
[2018-01-21 10:00] VITALS: BP 144/53
[2018-01-21] MEDS: vitamin D (cholecalciferol) 1,000 unit tablet PO SCH (10:46)
[2018-01-21] MEDS: pyridoxine 50mg tablet PO SCH ×2 (10:46→19:45)
[2018-01-21] MEDS: propranolol 10mg tablet PO SCH (10:46)
[2018-01-21] MEDS: benztropine 1mg tablet PO SCH ×2 (10:46→19:45)
[2018-01-21] MEDS: levoTHYROXINE 100mcg tablet PO SCH (10:46)
[2018-01-21] MEDS: divalproex sodium 250mg tablet PO SCH ×3 (10:46→17:52)
[2018-01-21] MEDS: clonazePAM 0.5mg tablet PO SCH ×2 (10:47→19:45)
[2018-01-21] MEDS: docusate sod 100mg capsule PO SCH ×2 (10:47→19:45)
[2018-01-21] MEDS: calcium carbonate 500mg tablet PO SCH ×2 (10:47→19:45)
[2018-01-21] MEDS: aspirin 81mg tab.chew PO SCH (10:47)
[2018-01-21] MEDS: famotidine 20mg tablet PO SCH (10:47)
[2018-01-21] MEDS: ferrous sulfate 325mg tablet PO SCH (10:47)
[2018-01-21] MEDS: lurasidone 60mg tablet PO SCH ×2 (10:47→19:47)
[2018-01-21] MEDS: LACTOSE-FREE FOOD 237ML (BOOST) PO SCH ×3 (10:49→18:53)
[2018-01-21] MEDS: heparin, porcine 5000 units/ml vial SQ SCH ×2 (10:49→19:44)
[2018-01-21] MEDS: azelastine Nasal Spray bottle NS SCH ×2 (10:50→19:46)
[2018-01-21] MEDS: mag hydrox/Alum hydrox/simeth 30ml oral suspension PO PRN (16:32)
[2018-01-21 18:00] VITALS: BP 157/60
[2018-01-21] MEDS: polyethylene glycol 3350 17gm powd pack PO SCH (19:44)
[2018-01-21] MEDS: sennosides 8.6mg tablet PO SCH (19:49)
[2018-01-21] MEDS: atorvastatin 10mg tablet PO SCH (19:49)
[2018-01-21 22:00] VITALS: BP 123/50
[2018-01-22 07:04] VITALS: BP 119/40
[2018-01-22] MEDS ORDERED: carbidoba-levodopa 25-100mg tablet PO SCH (08:00)
[2018-01-22] MEDS: azelastine Nasal Spray bottle NS SCH ×2 (08:00→19:52)
[2018-01-22 10:00] VITALS: BP 129/45
[2018-01-22] MEDS: vitamin D (cholecalciferol) 1,000 unit tablet PO SCH (10:07)
[2018-01-22] MEDS: pyridoxine 50mg tablet PO SCH ×2 (10:07→19:58)
[2018-01-22] MEDS: docusate sod 100mg capsule PO SCH ×2 (10:08→19:58)
[2018-01-22] MEDS: divalproex sodium 250mg tablet PO SCH ×3 (10:08→17:46)
[2018-01-22] MEDS: heparin, porcine 5000 units/ml vial SQ SCH ×2 (10:08→20:06)
[2018-01-22] MEDS: ferrous sulfate 325mg tablet PO SCH (10:08)
[2018-01-22] MEDS: propranolol 10mg tablet PO SCH (10:08)
[2018-01-22] MEDS: calcium carbonate 500mg tablet PO SCH ×2 (10:09→19:58)
[2018-01-22] MEDS: lurasidone 60mg tablet PO SCH ×2 (10:09→19:58)
[2018-01-22] MEDS: acetaminophen 325mg tablet PO PRN (10:09)
[2018-01-22] MEDS: benztropine 1mg tablet PO SCH ×2 (10:09→19:58)
[2018-01-22] MEDS: clonazePAM 0.5mg tablet PO SCH ×2 (10:09→19:58)
[2018-01-22] MEDS: LACTOSE-FREE FOOD 237ML (BOOST) PO SCH ×3 (10:10→18:00)
[2018-01-22] MEDS: levoTHYROXINE 100mcg tablet PO SCH (10:10)
[2018-01-22] MEDS: famotidine 20mg tablet PO SCH (10:10)
[2018-01-22] MEDS: aspirin 81mg tab.chew PO SCH (10:10)
[2018-01-22 18:00] VITALS: BP 132/49
[2018-01-22] MEDS: polyethylene glycol 3350 17gm powd pack PO SCH ×2 (19:53→19:57)
[2018-01-22] MEDS: sennosides 8.6mg tablet PO SCH (19:58)
[2018-01-22] MEDS: atorvastatin 10mg tablet PO SCH (19:58)
[2018-01-22 22:00] VITALS: BP 113/38
[2018-01-23 06:00] VITALS: BP 110/35
[2018-01-23] MEDS: vitamin D (cholecalciferol) 1,000 unit tablet PO SCH (08:21)
[2018-01-23] MEDS: divalproex sodium 250mg tablet PO SCH ×3 (08:21→17:06)
[2018-01-23] MEDS: calcium carbonate 500mg tablet PO SCH ×2 (08:22→20:09)
[2018-01-23] MEDS: benztropine 1mg tablet PO SCH ×2 (08:22→20:09)
[2018-01-23] MEDS: pyridoxine 50mg tablet PO SCH ×2 (08:22→20:09)
[2018-01-23] MEDS: clonazePAM 0.5mg tablet PO SCH ×2 (08:22→20:09)
[2018-01-23] MEDS: docusate sod 100mg capsule PO SCH ×2 (08:22→20:10)
[2018-01-23] MEDS: ferrous sulfate 325mg tablet PO SCH (08:22)
[2018-01-23] MEDS: famotidine 20mg tablet PO SCH (08:22)
[2018-01-23] MEDS: propranolol 10mg tablet PO SCH (08:22)
[2018-01-23] MEDS: lurasidone 60mg tablet PO SCH ×2 (08:23→20:09)
[2018-01-23] MEDS: carbidopa/levodopa 10/100mg tab PO SCH (08:23)
[2018-01-23] MEDS: azelastine Nasal Spray bottle NS SCH ×2 (08:24→20:00)
[2018-01-23] MEDS: heparin, porcine 5000 units/ml vial SQ SCH ×2 (08:24→20:09)
[2018-01-23] MEDS: aspirin 81mg tab.chew PO SCH (08:24)
[2018-01-23] MEDS: LACTOSE-FREE FOOD 237ML (BOOST) PO SCH ×3 (08:31→18:00)
[2018-01-23] MEDS: levoTHYROXINE 100mcg tablet PO SCH (08:33)
[2018-01-23 10:00] VITALS: BP 119/41
[2018-01-23 18:00] VITALS: BP 127/45
[2018-01-23] MEDS: atorvastatin 10mg tablet PO SCH (20:09)
[2018-01-23] MEDS: sennosides 8.6mg tablet PO SCH (20:09)
[2018-01-23] MEDS: polyethylene glycol 3350 17gm powd pack PO SCH (20:10)
[2018-01-23 22:00] VITALS: BP 133/44
[2018-01-24 06:00] VITALS: BP 132/46
[2018-01-24] MEDS: vitamin D (cholecalciferol) 1,000 unit tablet PO SCH (08:36)
[2018-01-24] MEDS: divalproex sodium 250mg tablet PO SCH ×3 (08:36→17:11)
[2018-01-24] MEDS: clonazePAM 0.5mg tablet PO SCH ×2 (08:36→20:54)
[2018-01-24] MEDS: famotidine 20mg tablet PO SCH (08:36)
[2018-01-24] MEDS: azelastine Nasal Spray bottle NS SCH ×2 (08:36→21:27)
[2018-01-24] MEDS: carbidopa/levodopa 10/100mg tab PO SCH (08:37)
[2018-01-24] MEDS: lurasidone 60mg tablet PO SCH ×2 (08:37→20:56)
[2018-01-24] MEDS: docusate sod 100mg capsule PO SCH ×2 (08:37→21:17)
[2018-01-24] MEDS: benztropine 1mg tablet PO SCH ×2 (08:37→20:55)
[2018-01-24] MEDS: propranolol 10mg tablet PO SCH (08:37)
[2018-01-24] MEDS: pyridoxine 50mg tablet PO SCH ×2 (08:37→20:55)
[2018-01-24] MEDS: aspirin 81mg tab.chew PO SCH (08:37)
[2018-01-24] MEDS: calcium carbonate 500mg tablet PO SCH ×2 (08:37→20:55)
[2018-01-24] MEDS: ferrous sulfate 325mg tablet PO SCH (08:37)
[2018-01-24] MEDS: heparin, porcine 5000 units/ml vial SQ SCH ×2 (08:38→21:30)
[2018-01-24] MEDS: LACTOSE-FREE FOOD 237ML (BOOST) PO SCH ×3 (08:44→18:00)
[2018-01-24] MEDS: levoTHYROXINE 100mcg tablet PO SCH (08:45)
[2018-01-24 10:00] VITALS: BP 140/59
[2018-01-24 19:00] VITALS: BP 138/46
[2018-01-24] MEDS: atorvastatin 10mg tablet PO SCH (20:55)
[2018-01-24] MEDS: sennosides 8.6mg tablet PO SCH (21:20)
[2018-01-24] MEDS: polyethylene glycol 3350 17gm powd pack PO SCH (21:26)
[2018-01-25] MEDS: LACTOSE-FREE FOOD 237ML (BOOST) PO SCH ×3 (08:00→18:47)
[2018-01-25] MEDS: vitamin D (cholecalciferol) 1,000 unit tablet PO SCH (08:00)
[2018-01-25] MEDS: calcium carbonate 500mg tablet PO SCH ×2 (08:00→20:25)
[2018-01-25] MEDS: divalproex sodium 250mg tablet PO SCH ×3 (08:30→17:11)
[2018-01-25] MEDS: azelastine Nasal Spray bottle NS SCH ×2 (10:00→20:26)
[2018-01-25 11:00] VITALS: BP 152/61
[2018-01-25] MEDS: propranolol 10mg tablet PO SCH (12:02)
[2018-01-25] MEDS: carbidopa/levodopa 10/100mg tab PO SCH (12:02)
[2018-01-25] MEDS: aspirin 81mg tab.chew PO SCH (12:02)
[2018-01-25] MEDS: heparin, porcine 5000 units/ml vial SQ SCH ×2 (12:02→20:25)
[2018-01-25] MEDS: benztropine 1mg tablet PO SCH ×2 (12:02→20:24)
[2018-01-25] MEDS: lurasidone 60mg tablet PO SCH ×2 (12:02→20:25)
[2018-01-25] MEDS: ferrous sulfate 325mg tablet PO SCH (12:03)
[2018-01-25] MEDS: docusate sod 100mg capsule PO SCH ×2 (12:03→20:24)
[2018-01-25] MEDS: famotidine 20mg tablet PO SCH (12:03)
[2018-01-25] MEDS: levoTHYROXINE 100mcg tablet PO SCH (12:03)
[2018-01-25] MEDS: pyridoxine 50mg tablet PO SCH ×2 (12:03→20:25)
[2018-01-25] MEDS: clonazePAM 0.5mg tablet PO SCH ×2 (12:03→20:24)
[2018-01-25 18:00] VITALS: BP 152/55
[2018-01-25] MEDS: sennosides 8.6mg tablet PO SCH (20:25)
[2018-01-25] MEDS: atorvastatin 10mg tablet PO SCH (20:25)
[2018-01-25] MEDS: polyethylene glycol 3350 17gm powd pack PO SCH (20:26)
[2018-01-25] MEDS: temazepam 15mg capsule PO PRN (20:32)
[2018-01-25 23:00] VITALS: BP 123/50
[2018-01-26 06:00] VITALS: BP 115/43
[2018-01-26] MEDS: lurasidone 60mg tablet PO SCH ×2 (08:32→20:39)
[2018-01-26] MEDS: vitamin D (cholecalciferol) 1,000 unit tablet PO SCH (08:32)
[2018-01-26] MEDS: famotidine 20mg tablet PO SCH (08:32)
[2018-01-26] MEDS: propranolol 10mg tablet PO SCH (08:33)
[2018-01-26] MEDS: clonazePAM 0.5mg tablet PO SCH ×2 (08:33→20:31)
[2018-01-26] MEDS: docusate sod 100mg capsule PO SCH ×2 (08:33→20:00)
[2018-01-26] MEDS: pyridoxine 50mg tablet PO SCH ×2 (08:33→20:31)
[2018-01-26] MEDS: carbidopa/levodopa 10/100mg tab PO SCH (08:33)
[2018-01-26] MEDS: aspirin 81mg tab.chew PO SCH (08:33)
[2018-01-26] MEDS: divalproex sodium 250mg tablet PO SCH ×3 (08:33→18:12)
[2018-01-26] MEDS: ferrous sulfate 325mg tablet PO SCH (08:33)
[2018-01-26] MEDS: levoTHYROXINE 100mcg tablet PO SCH (08:33)
[2018-01-26] MEDS: benztropine 1mg tablet PO SCH ×2 (08:33→20:30)
[2018-01-26] MEDS: calcium carbonate 500mg tablet PO SCH ×2 (08:33→20:31)
[2018-01-26] MEDS: azelastine Nasal Spray bottle NS SCH ×2 (08:34→20:00)
[2018-01-26] MEDS: heparin, porcine 5000 units/ml vial SQ SCH ×2 (08:38→20:31)
[2018-01-26] MEDS: LACTOSE-FREE FOOD 237ML (BOOST) PO SCH ×3 (08:53→18:12)
[2018-01-26 10:00] VITALS: BP 148/59
[2018-01-26] MEDS ORDERED: LORazepam 2 mg/ml vial IV PRN (13:55)
[2018-01-26] MEDS: ziprasidone 20mg capsule PO PRN (17:21)
[2018-01-26 18:00] VITALS: BP 155/74
[2018-01-26] MEDS: atorvastatin 10mg tablet PO SCH (20:31)
[2018-01-26] MEDS: polyethylene glycol 3350 17gm powd pack PO SCH (20:31)
[2018-01-26] MEDS: sennosides 8.6mg tablet PO SCH (20:32)
[2018-01-26 22:00] VITALS: BP 133/37
[2018-01-27 05:00] VITALS: BP 113/42
[2018-01-27] MEDS: aspirin 81mg tab.chew PO SCH (10:32)
[2018-01-27] MEDS: levoTHYROXINE 100mcg tablet PO SCH (10:33)
[2018-01-27] MEDS: benztropine 1mg tablet PO SCH ×2 (10:33→19:59)
[2018-01-27] MEDS: ferrous sulfate 325mg tablet PO SCH (10:34)
[2018-01-27] MEDS: propranolol 10mg tablet PO SCH (10:34)
[2018-01-27] MEDS: docusate sod 100mg capsule PO SCH ×2 (10:34→19:59)
[2018-01-27] MEDS: clonazePAM 0.5mg tablet PO SCH ×2 (10:35→19:59)
[2018-01-27] MEDS: carbidopa/levodopa 10/100mg tab PO SCH (10:35)
[2018-01-27] MEDS: pyridoxine 50mg tablet PO SCH ×2 (10:35→19:59)
[2018-01-27] MEDS: famotidine 20mg tablet PO SCH (10:35)
[2018-01-27] MEDS: divalproex sodium 250mg tablet PO SCH ×3 (10:35→16:58)
[2018-01-27] MEDS: lurasidone 60mg tablet PO SCH ×2 (10:35→19:58)
[2018-01-27] MEDS: calcium carbonate 500mg tablet PO SCH ×2 (10:35→19:59)
[2018-01-27] MEDS: vitamin D (cholecalciferol) 1,000 unit tablet PO SCH (10:36)
[2018-01-27] MEDS: heparin, porcine 5000 units/ml vial SQ SCH ×2 (10:36→19:59)
[2018-01-27] MEDS: azelastine Nasal Spray bottle NS SCH ×2 (10:37→19:58)
[2018-01-27] MEDS: LACTOSE-FREE FOOD 237ML (BOOST) PO SCH ×3 (10:38→18:00)
[2018-01-27 10:55] VITALS: BP 127/61
[2018-01-27 11:09] VITALS: BP 152/81
[2018-01-27 18:00] VITALS: BP 131/57
[2018-01-27] MEDS: polyethylene glycol 3350 17gm powd pack PO SCH (19:58)
[2018-01-27] MEDS: sennosides 8.6mg tablet PO SCH (19:59)
[2018-01-27] MEDS: atorvastatin 10mg tablet PO SCH (19:59)
[2018-01-27 22:00] VITALS: BP 139/51
[2018-01-28 06:00] VITALS: BP 132/40
[2018-01-28] MEDS: levoTHYROXINE 100mcg tablet PO SCH (09:32)
[2018-01-28] MEDS: azelastine Nasal Spray bottle NS SCH ×2 (09:33→20:20)
[2018-01-28] MEDS: aspirin 81mg tab.chew PO SCH (09:33)
[2018-01-28] MEDS: docusate sod 100mg capsule PO SCH ×2 (09:34→20:24)
[2018-01-28] MEDS: ferrous sulfate 325mg tablet PO SCH (09:34)
[2018-01-28] MEDS: LACTOSE-FREE FOOD 237ML (BOOST) PO SCH ×3 (09:34→18:30)
[2018-01-28] MEDS: benztropine 1mg tablet PO SCH ×2 (09:34→20:24)
[2018-01-28] MEDS: clonazePAM 0.5mg tablet PO SCH ×2 (09:35→20:24)
[2018-01-28] MEDS: carbidopa/levodopa 10/100mg tab PO SCH (09:35)
[2018-01-28] MEDS: propranolol 10mg tablet PO SCH (09:35)
[2018-01-28] MEDS: lurasidone 60mg tablet PO SCH ×2 (09:35→20:20)
[2018-01-28] MEDS: famotidine 20mg tablet PO SCH (09:35)
[2018-01-28] MEDS: calcium carbonate 500mg tablet PO SCH ×2 (09:35→20:24)
[2018-01-28] MEDS: divalproex sodium 250mg tablet PO SCH ×3 (09:36→17:45)
[2018-01-28] MEDS: pyridoxine 50mg tablet PO SCH ×2 (09:36→20:24)
[2018-01-28] MEDS: heparin, porcine 5000 units/ml vial SQ SCH ×2 (09:36→20:25)
[2018-01-28] MEDS: vitamin D (cholecalciferol) 1,000 unit tablet PO SCH (09:36)
[2018-01-28 10:00] VITALS: BP 153/56
[2018-01-28 18:00] VITALS: BP 134/49
[2018-01-28] MEDS: atorvastatin 10mg tablet PO SCH (20:24)
[2018-01-28] MEDS: polyethylene glycol 3350 17gm powd pack PO SCH (20:24)
[2018-01-28] MEDS: sennosides 8.6mg tablet PO SCH (20:24)
[2018-01-29 05:00] VITALS: BP 123/39
[2018-01-29] MEDS: azelastine Nasal Spray bottle NS SCH ×2 (08:00→20:00)
[2018-01-29] MEDS: pyridoxine 50mg tablet PO SCH ×2 (08:42→20:01)
[2018-01-29] MEDS: lurasidone 60mg tablet PO SCH ×2 (08:42→20:00)
[2018-01-29] MEDS: ferrous sulfate 325mg tablet PO SCH (08:42)
[2018-01-29] MEDS: calcium carbonate 500mg tablet PO SCH ×2 (08:42→20:01)
[2018-01-29] MEDS: famotidine 20mg tablet PO SCH (08:42)
[2018-01-29] MEDS: heparin, porcine 5000 units/ml vial SQ SCH ×2 (08:42→20:01)
[2018-01-29] MEDS: divalproex sodium 250mg tablet PO SCH ×3 (08:42→17:23)
[2018-01-29] MEDS: vitamin D (cholecalciferol) 1,000 unit tablet PO SCH (08:42)
[2018-01-29] MEDS: levoTHYROXINE 100mcg tablet PO SCH (08:43)
[2018-01-29] MEDS: carbidopa/levodopa 10/100mg tab PO SCH (08:43)
[2018-01-29] MEDS: benztropine 1mg tablet PO SCH ×2 (08:43→20:01)
[2018-01-29] MEDS: aspirin 81mg tab.chew PO SCH (08:43)
[2018-01-29] MEDS: LACTOSE-FREE FOOD 237ML (BOOST) PO SCH ×3 (08:43→18:00)
[2018-01-29] MEDS: clonazePAM 0.5mg tablet PO SCH ×2 (08:43→20:01)
[2018-01-29] MEDS: docusate sod 100mg capsule PO SCH ×2 (08:43→20:01)
[2018-01-29] MEDS: propranolol 10mg tablet PO SCH (08:44)
[2018-01-29 10:00] VITALS: BP 137/51
[2018-01-29] MEDS: acetaminophen 325mg tablet PO PRN (12:47)
[2018-01-29 18:00] VITALS: BP 125/42
[2018-01-29] MEDS: atorvastatin 10mg tablet PO SCH (20:02)
[2018-01-29] MEDS: sennosides 8.6mg tablet PO SCH (20:02)
[2018-01-29] MEDS: polyethylene glycol 3350 17gm powd pack PO SCH (20:02)
[2018-01-29 22:00] VITALS: BP 111/40
[2018-01-30 06:00] VITALS: BP 116/39
[2018-01-30] MEDS: propranolol 10mg tablet PO SCH (08:00)
[2018-01-30] MEDS: docusate sod 100mg capsule PO SCH ×2 (08:00→19:58)
[2018-01-30] MEDS: clonazePAM 0.5mg tablet PO SCH ×2 (09:04→19:58)
[2018-01-30] MEDS: ferrous sulfate 325mg tablet PO SCH (09:04)
[2018-01-30] MEDS: pyridoxine 50mg tablet PO SCH ×2 (09:04→19:57)
[2018-01-30] MEDS: famotidine 20mg tablet PO SCH (09:04)
[2018-01-30] MEDS: divalproex sodium 250mg tablet PO SCH ×3 (09:04→17:16)
[2018-01-30] MEDS: carbidopa/levodopa 10/100mg tab PO SCH (09:04)
[2018-01-30] MEDS: aspirin 81mg tab.chew PO SCH (09:05)
[2018-01-30] MEDS: vitamin D (cholecalciferol) 1,000 unit tablet PO SCH (09:05)
[2018-01-30] MEDS: azelastine Nasal Spray bottle NS SCH ×2 (09:05→19:58)
[2018-01-30] MEDS: levoTHYROXINE 100mcg tablet PO SCH (09:05)
[2018-01-30] MEDS: lurasidone 60mg tablet PO SCH ×2 (09:05→19:58)
[2018-01-30] MEDS: calcium carbonate 500mg tablet PO SCH ×2 (09:05→19:58)
[2018-01-30] MEDS: benztropine 1mg tablet PO SCH ×2 (09:05→19:58)
[2018-01-30] MEDS: LACTOSE-FREE FOOD 237ML (BOOST) PO SCH ×3 (09:06→18:00)
[2018-01-30] MEDS: heparin, porcine 5000 units/ml vial SQ SCH ×2 (09:06→19:57)
[2018-01-30 10:00] VITALS: BP 118/39
[2018-01-30 18:00] VITALS: BP 129/51
[2018-01-30] MEDS: atorvastatin 10mg tablet PO SCH (19:59)
[2018-01-30] MEDS: polyethylene glycol 3350 17gm powd pack PO SCH (19:59)
[2018-01-30] MEDS: sennosides 8.6mg tablet PO SCH (20:00)
[2018-01-30 22:00] VITALS: BP 114/42
[2018-01-31 06:40] VITALS: BP 138/56
[2018-01-31] MEDS: propranolol 10mg tablet PO SCH (08:00)
[2018-01-31] MEDS: docusate sod 100mg capsule PO SCH ×2 (08:00→20:00)
[2018-01-31] MEDS: azelastine Nasal Spray bottle NS SCH ×2 (09:34→20:00)
[2018-01-31] MEDS: vitamin D (cholecalciferol) 1,000 unit tablet PO SCH (09:34)
[2018-01-31] MEDS: heparin, porcine 5000 units/ml vial SQ SCH ×2 (09:34→20:37)
[2018-01-31] MEDS: lurasidone 60mg tablet PO SCH ×2 (09:36→20:38)
[2018-01-31] MEDS: aspirin 81mg tab.chew PO SCH (09:36)
[2018-01-31] MEDS: famotidine 20mg tablet PO SCH (09:36)
[2018-01-31] MEDS: divalproex sodium 250mg tablet PO SCH ×3 (09:36→17:18)
[2018-01-31] MEDS: clonazePAM 0.5mg tablet PO SCH ×2 (09:36→20:36)
[2018-01-31] MEDS: calcium carbonate 500mg tablet PO SCH ×2 (09:36→20:36)
[2018-01-31] MEDS: benztropine 1mg tablet PO SCH ×2 (09:36→20:36)
[2018-01-31] MEDS: levoTHYROXINE 100mcg tablet PO SCH (09:36)
[2018-01-31] MEDS: pyridoxine 50mg tablet PO SCH ×2 (09:36→20:36)
[2018-01-31] MEDS: carbidopa/levodopa 10/100mg tab PO SCH (09:36)
[2018-01-31] MEDS: ferrous sulfate 325mg tablet PO SCH (09:36)
[2018-01-31] MEDS: LACTOSE-FREE FOOD 237ML (BOOST) PO SCH ×3 (09:43→18:00)
[2018-01-31] MEDS ORDERED: haloperidol 1mg tablet PO PRN (11:00)
[2018-01-31] MEDS: ziprasidone IM 20mg inj **IM only IM PRN (14:26)
[2018-01-31 18:30] VITALS: BP 124/50
[2018-01-31] MEDS: atorvastatin 10mg tablet PO SCH (20:36)
[2018-01-31] MEDS: polyethylene glycol 3350 17gm powd pack PO SCH (20:48)
[2018-01-31] MEDS: sennosides 8.6mg tablet PO SCH (20:51)
[2018-02-01 02:00] VITALS: BP 147/36
[2018-02-01 06:00] VITALS: BP 128/39
[2018-02-01] MEDS: docusate sod 100mg capsule PO SCH (08:01)
[2018-02-01] MEDS: lurasidone 60mg tablet PO SCH (08:01)
[2018-02-01] MEDS: calcium carbonate 500mg tablet PO SCH (08:01)
[2018-02-01] MEDS: levoTHYROXINE 100mcg tablet PO SCH (08:01)
[2018-02-01] MEDS: ferrous sulfate 325mg tablet PO SCH (08:01)
[2018-02-01] MEDS: aspirin 81mg tab.chew PO SCH (08:01)
[2018-02-01] MEDS: carbidopa/levodopa 10/100mg tab PO SCH (08:01)
[2018-02-01] MEDS: famotidine 20mg tablet PO SCH (08:01)
[2018-02-01] MEDS: pyridoxine 50mg tablet PO SCH (08:01)
[2018-02-01] MEDS: divalproex sodium 250mg tablet PO SCH (08:02)
[2018-02-01] MEDS: heparin, porcine 5000 units/ml vial SQ SCH (08:02)
[2018-02-01] MEDS: benztropine 1mg tablet PO SCH (08:02)
[2018-02-01] MEDS: azelastine Nasal Spray bottle NS SCH (08:04)
[2018-02-01] MEDS: clonazePAM 0.5mg tablet PO SCH (08:05)
[2018-02-01] MEDS: vitamin D (cholecalciferol) 1,000 unit tablet PO SCH (08:05)
[2018-02-01] MEDS: propranolol 10mg tablet PO SCH (08:19)
[2018-02-01] MEDS: LACTOSE-FREE FOOD 237ML (BOOST) PO SCH (08:22)
== END 2018-02-01 09:35 | DRG 871 ==
LOC: ER 12:03 → ED HOLD 16:21 → EDBEDREQ 18:24 → CMPBEDREQ 19:36 → MED 3N 19:39 → CICU 2S 11-23 13:36 → PCU 3S 11-25 17:38 → ORTHO 4S 12-16 12:55
PROVIDERS: ADMIT Internal Medicine; ATTEND Internal Medicine
DX: A41.9 Sepsis, unspecified organism (principal); G93.41 Metabolic encephalopathy; N17.9 Acute kidney failure, unspecified; E87.0 Hyperosmolality and hypernatremia; E83.52 Hypercalcemia; E87.5 Hyperkalemia; R13.10 Dysphagia, unspecified; N39.0 Urinary tract infection, site not specified; I16.1 Hypertensive emergency; R45.851 Suicidal ideations; K12.2 Cellulitis and abscess of mouth; D63.8 Anemia in other chronic diseases classified elsewhere; R65.20 Severe sepsis without septic shock; E03.9 Hypothyroidism, unspecified; E78.00 Pure hypercholesterolemia, unspecified; E78.5 Hyperlipidemia, unspecified; E86.0 Dehydration; F25.9 Schizoaffective disorder, unspecified; F32.9 Major depressive disorder, single episode, unspecified; F41.1 Generalized anxiety disorder; G47.00 Insomnia, unspecified; J30.9 Allergic rhinitis, unspecified; G89.29 Other chronic pain; I12.9 Hypertensive chronic kidney disease with stage 1 through stage 4 chronic kidney disease, or unspecified chronic kidney disease; M27.2 Inflammatory conditions of jaws; N18.9 Chronic kidney disease, unspecified; K59.09 Other constipation; R73.9 Hyperglycemia, unspecified; R74.0 Nonspecific elevation of levels of transaminase and lactic acid dehydrogenase [LDH]; Z79.899 Other long term (current) drug therapy; Z79.01 Long term (current) use of anticoagulants; Z79.82 Long term (current) use of aspirin; Z88.8 Allergy status to other drugs, medicaments and biological substances; Z91.041 Radiographic dye allergy status; Z91.012 Allergy to eggs; Z75.1 Person awaiting admission to adequate facility elsewhere
CPT/HCPCS: 36415; 70450; 70486; 70490; 71045; 74018; 80048; 80053; 80061; 80164; 80305; 80320; 81001; 81003; 82948; 83036; 83540; 83550; 83605; 83735; 84100; 84132; 84134; 84145; 84295; 84443; 84484; 85025; 85045; 85610; 85730; 86140; 87040; 87070; 87077; 87088; 87186; 92616; 93005; 94640; 94760; 95816; 96360; 97110; 97116; 97161; 97162; 97530; 97535; 99285; A4353; A4357; A4414; A4649; A6212; A6213; A6222; A6250; A6257; A6446; A6449; C1758; J0295; J0360; J0696; J0780; J1100; J1170; J1200; J1630; J1644; J2060; J2405; J3480; J3486; J3490; J7030; J7042; J7060; J7070; J7120; Q0163